=== PATIENT | female | born 1995 | race Caucasian/White ===

== ENCOUNTER 2019-06-15 09:28 | Outpatient (CLI) | payer MEDICAID ==
--- NOTE | 2019-06-16 03:44 | Ultrasound Report ---
Reason: TEST POSITIVE Procedure Date: 06/15/2019 Accession Number: [id number] / [id number] Procedure: US - OB First Trimester CPT Code: Final Report FULL RESULT: EXAM: FIRST TRIMESTER OBSTETRIC ULTRASOUND EXAM DATE: 06/15/2019 09:36 AM. CLINICAL HISTORY: TEST POSITIVE. LMP: 03/26/2019. COMPARISONS: None. TECHNIQUE: Transabdominal and transvaginal ultrasound examination with static image documentation. CLINICAL DATES: EGA 11 weeks 4 days with MACIE 12/31/2019 based on LMP. ASSESSMENT: Gestational Sac: Single intrauterine. Mean gestational sac diameter: 54 mm = 11 weeks 2 days. Embryo: CRL (crown-rump length) 50 mm = 11 weeks 5 days. Cardiac activity: 162 beats per minute. Yolk sac: Not seen. Amniotic fluid: Not accurately assessed at this gestational age. Early placenta: The bulk of the placenta is anterior fundal. Possible succenturiate lobe covering the internal os. Other: No perigestational fluid collection demonstrated. MATERNAL STRUCTURES: Uterus: Anteverted. Unremarkable. Cervix: Closed. Trace fluid in the endocervical canal. Right Ovary/Adnexa: The ovary measures 3.0 x 1.9 x 2.2 cm, volume 6.8 cc. Involuting cyst measuring 1.4 x 1.3 x 1.3 cm. Left Ovary/Adnexa: The ovary measures 2.6 x 1.8 x 3.2 cm, volume 7.9 cc. Corpus luteum cyst measuring 1.5 x 1.0 x 1.2 cm. Free Fluid: None. Other: None. IMPRESSION: 1. Single viable intrauterine at EGA 11 weeks 5 days with MCAIE 12/30/2019 based on crown-rump length, which is concordant with clinical dates. 2. Assigned dating is MACIE 12/31/2019 based on LMP. 3. The placenta is mostly anterior fundal. Possible succenturiate lobe covering the internal os. Recommend attention on later exams. RADIA
== END 2019-06-15 09:29 | disposition home or self-care (01) ==
LOC: DI 09:28
PROVIDERS: ATTEND Obstetrics & Gynecology
DX: Z32.01 Encounter for pregnancy test, result positive (principal)
CPT/HCPCS: 36415; 76801; 81599; 85025; 86762; 86803; 86850; 86900; 86901; 87340; 87389

== ENCOUNTER 2019-06-15 10:33 | Outpatient (CLI) | payer MEDICAID ==
[2019-06-15 10:59] LABS: BASOPHILS % (AUTO) 0.5 %; EOSINOPHILS # (AUTO) 0.1 10^3/uL (0.0-0.7); EOSINOPHILS % (AUTO) 1.2 %; HGB - HEMOGLOBIN 12.9 g/dL (12.0-16.0); LYMPHOCYTES # (AUTO) 2.4 10^3/uL (1.5-3.5); LYMPHOCYTES % (AUTO) 28.6 %; MEAN CORPUSCULAR HEMOGLOBIN 27.6 pg (27.0-31.0); MEAN CORPUSCULAR HGB CONC 33.4 g/dL (32.0-36.0); MEAN CORPUSCULAR VOLUME 82.5 fL (81.0-99.0); MONOCYTES # (AUTO) 0.9 10^3/uL (0.0-1.0); MONOCYTES % (AUTO) 10.2 %; NEUTROPHILS # (AUTO) 5.1 10^3/uL (1.5-6.6); NEUTROPHILS % (AUTO) 59.1 %; PLT - PLATELET COUNT 234 10^3/uL (130-450); RED BLOOD COUNT 4.68 10^6/uL (4.20-5.40); RED CELL DISTRIBUTION WIDTH 13.1 % (12.0-15.0); WHITE BLOOD COUNT 8.5 x10^3/uL (4.8-10.8)
[2019-06-16 10:55] LABS: HIV AG/AB 4TH GEN NON-REACTIVE (NON-REACTIVE)
[2019-06-16 13:30] LABS: HEPATITIS B SURFACE ANTIGEN NON-REACTIVE (NON-REACTIVE); HEPATITIS C ANTIBODY NON-REACTIVE (NON-REACTIVE)
== END 2019-06-15 10:34 | disposition home or self-care (01) ==
LOC: LAB 10:33
PROVIDERS: ATTEND Obstetrics & Gynecology
DX: Z32.01 Encounter for pregnancy test, result positive (principal)
CPT/HCPCS: 36415; 81599; 85025; 86762; 86803; 86850; 86900; 86901; 87340; 87389

== ENCOUNTER 2019-07-11 17:22 | Emergency (ER) | payer MEDICAID ==
[2019-07-11 17:32] VITALS: BP 127/84
[2019-07-11 18:22] LABS: BASOPHILS % (AUTO) 0.4 %; EOSINOPHILS # (AUTO) 0.1 10^3/uL (0.0-0.7); EOSINOPHILS % (AUTO) 1.2 %; LYMPHOCYTES # (AUTO) 2.3 10^3/uL (1.5-3.5); MEAN CORPUSCULAR HEMOGLOBIN 28.9 pg (27.0-31.0); MEAN CORPUSCULAR HGB CONC 35.2 g/dL (32.0-36.0); MEAN CORPUSCULAR VOLUME 82.2 fL (81.0-99.0); MONOCYTES # (AUTO) 0.8 10^3/uL (0.0-1.0); MONOCYTES % (AUTO) 8.1 %; NEUTROPHILS # (AUTO) 6.7 10^3/uL (1.5-6.6); NEUTROPHILS % (AUTO) 66.9 %; PLT - PLATELET COUNT 233 10^3/uL (130-450); RED BLOOD COUNT 4.15 10^6/uL (4.20-5.40); RED CELL DISTRIBUTION WIDTH 13.1 % (12.0-15.0); WHITE BLOOD COUNT 10.1 x10^3/uL (4.8-10.8)
[2019-07-11] MEDS ORDERED: KETOROLAC 30 MG/ML VIAL IVP STA (18:27)
[2019-07-11] MEDS ORDERED: KETOROLAC 30 MG/ML VIAL IM STA (18:31)
[2019-07-11 18:36] LABS: ALBUMIN 3.4 g/dL (3.2-5.5); ALBUMIN/GLOBULIN RATIO 0.9 (1.0-2.2); BILIRUBIN,TOTAL 0.5 mg/dL (0.2-1.0); CREATININE 0.6 mg/dL (0.4-1.0); TOTAL PROTEIN 7.1 g/dL (6.7-8.2)
[2019-07-11 18:46] LABS: BILIRUBIN,URINE NEGATIVE (NEGATIVE); GLUCOSE, URINE (UA) NEGATIVE (NEGATIVE); KETONES,URINE (UA) NEGATIVE (NEGATIVE); LEUKOCYTE ESTERASE, URINE NEGATIVE (NEGATIVE); NITRITE,URINE NEGATIVE (NEGATIVE); OCCULT BLOOD,URINE NEGATIVE (NEGATIVE); PH,URINE 5.5 PH (5.0-7.5); PROTEIN,URINE NEGATIVE (NEGATIVE); UROBILINOGEN,URINE 0.2 (NORMAL) E.U./dL (NORMAL)
[2019-07-11 18:47] LABS: CLARITY,URINE CLEAR (CLEAR)
--- NOTE | 2019-07-11 18:47 | ED Physician Documentation ---
<Omar Pino - Last Filed: 07/11/19 21:45> PD HPI FEMALE - Stated complaint Stated Complaint: RLQ ABD PX - Chief complaint Chief Complaint: Abd Pain PD PAST MEDICAL HISTORY - Allergies Allergies/Adverse Reactions: Allergies Allergy/AdvReac Type Severity Reaction Status Date / Time phenol [From Chloraseptic] Allergy Unknown Verified 07/11/19 17:32 PD MEDICAL DECISION MAKING - ED course Complexity details: re-evaluated patient, d/w patient, other (Patient signed out to me at shift change by Dr. Waed. Patient reexamined she is pain-free her ultrasound is reassuring. 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 Discharge Date/Time: 07/11/19 21:50 <Igor Wade - Last Filed: 07/12/19 00:25> PD HPI FEMALE - History obtained from History obtained from: Patient - History of Present Illness Timing - onset: Today Timing - duration: Hours Timing - details: Gradual onset, Still present (worsened this afternoon.), Waxing and waning Associated symptoms: Pelvic pain, Urinary frequency. 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 denies: Vomiting, Diarrhea : reports: Frequency, Now EGA (with feeling less movement today). denies: Dysuria, Discharge, Vaginal bleeding PD PAST MEDICAL HISTORY - Past Medical History Cardiovascular: None Respiratory: None Neuro: None Endocrine/Autoimmune: None PD ED PE NORMAL - Vitals Vital signs reviewed: Yes - General General: Alert and oriented X 3, No acute distress, Well developed/nourished - Neck Neck: Supple, no meningeal sign, No adenopathy - Cardiac Cardiac: RRR, No murmur - Respiratory Respiratory: Clear bilaterally - Abdomen Abdomen: Normal bowel sounds, Soft, Non distended, No organomegaly, Other (some tenderness left lower pelvic area. Not at McBurneys area directly. No percussion nor rebound tenderness. ) - Female Female : Deferred - Rectal Rectal: Deferred - Back Back: No CVA TTP - Derm Derm: Normal color, Warm and dry Results - Vitals Vitals: Vital Signs - 24 hr 07/11/19 17:27 Temperature 36.6 C Heart Rate 82 Respiratory 18 Rate Blood Pressure 127/84 H O2 Saturation 97 Oxygen O2 Source Room air - Labs Labs: Laboratory Tests 07/11/19 07/11/19 07/11/19 17:30 18:11 18:11 WBC 10.1 RBC 4.15 L Hgb 12.0 Hct 34.1 L MCV 82.2 MCH 28.9 MCHC 35.2 RDW 13.1 Plt Count 233 MPV 9.0 Neut # (Auto) 6.7 H Lymph # (Auto) 2.3 [place] # (Auto) 0.8 Eos # (Auto) 0.1 Baso # (Auto) 0.0 Absolute Nucleated RBC 0.00 Nucleated RBC % 0.0 Sodium 136 Potassium 3.5 Chloride 104 Carbon Dioxide 24 Anion Gap 8.0 BUN 8 Creatinine 0.6 Estimated GFR (MDRD) 126 Glucose 95 Calcium 9.0 Total Bilirubin 0.5 AST 15 ALT 20 Alkaline Phosphatase 49 Total Protein 7.1 Albumin 3.4 Globulin 3.7 Albumin/Globulin Ratio 0.9 L Lipase 30 Urine Color YELLOW Urine Clarity CLEAR Urine pH 5.5 Ur Specific [place] 1.025 Urine Protein NEGATIVE Urine Glucose (UA) NEGATIVE Urine Ketones NEGATIVE Urine Occult Blood NEGATIVE Urine Nitrite NEGATIVE Urine Bilirubin NEGATIVE Urine Urobilinogen 0.2 (NORMAL) Ur Leukocyte Esterase NEGATIVE Ur Microscopic Review NOT INDICATED Urine Culture Comments NOT INDICATED - Rads (name of study) OB U/S Radiology: Prelim report reviewed (little IUP with good heart beat and amniotic fluid. Normal ovaries size and flow. No intraperitoneal free fluid.), See rad report PD MEDICAL DECISION MAKING - ED course Complexity details: considered differential (she is not tender at McBurneys point nor higher. Seems tender lower pelvic area. Gravid with fundus about 15 cm above pubis c/w dates. FHT found by ER nurse by Doppler. Can get U/S to evaluate for ovarian/pelvic abnormality to account for pain. Most likely is round ligament pain, but need toe mary ellen for cysts, free fluid, torsion, etc. ) ED course: U/S and its report pending at time of shift change.
--- NOTE | 2019-07-11 21:26 | Ultrasound Report ---
Reason: RLQ abd pain; ; eval ovaries/fetus Procedure Date: 07/11/2019 Accession Number: [id number] / [id number] Procedure: US - OB 14+ Weeks CPT Code: Final Report FULL RESULT: EXAM: LIMITED OBSTETRICAL ULTRASOUND EXAM DATE: 07/11/2019 08:18 PM. CLINICAL HISTORY: RLQ abd pain; ; eval ovaries/fetus. COMPARISON: None. TECHNIQUE: Real-time sonographic evaluation of the fetus performed by the insurance representative. Multiple sales support representative static images were saved for review. DATING: Established EGA 15 weeks 2 days with MACIE 12/31/2019. GENERAL EVALUATION Sauer . Cardiac activity: 163 bpm. movement: Visualized. Presentation: Variable Placenta: Anterior fundal position. Amniotic fluid: Normal. CARA 11.1 cm. MVP 3.8 cm. MATERNAL STRUCTURES The right ovary measures 1.9 x 1.7 x 1.8 cm. The left ovary measures 1.8 x 2.0 x 2.3 cm. Visualization of the ovaries limited by body habitus. No intraperitoneal free fluid visualized. IMPRESSION: 1. Sauer live intrauterine with gestational age 15 weeks 2 days based on established MACIE. 2. Normal amniotic fluid volume. Both ovaries are visualized and appear normal in size. RADIA
== END 2019-07-11 21:50 | disposition home or self-care (01) ==
LOC: ED 17:22
DX: O26.892 Other specified pregnancy related conditions, second trimester (principal); R10.31 Right lower quadrant pain; Z3A.15 15 weeks gestation of pregnancy
CPT/HCPCS: 36415; 76805; 80053; 81001; 81003; 83690; 85025; 87086; 96372; 99284

== ENCOUNTER 2019-08-07 10:24 | Outpatient (CLI) | payer MEDICAID ==
--- NOTE | 2019-08-07 16:49 | Ultrasound Report ---
Reason: Procedure Date: 08/07/2019 Accession Number: [id number] / [id number] Procedure: US - OB Detailed Eval CPT Code: Final Report FULL RESULT: PROCEDURE: OB Detailed Eval INDICATIONS: OUTSIDE/PRIOR DATING DATA: Last menstrual period (LMP): 03/26/2019. LMP-based estimated date of delivery (MACIE): 12/2619. First dating scan (date and location): 06/15/2019. Estimated date of delivery (MACIE) from first dating scan: 12/31/2019. TECHNIQUE: Real-time scanning was performed of the fetus, with image documentation and biometric measurements. COMPARISON: 07/11/2019, 06/15/2019. FINDINGS: General: Indication limited by maternal body habitus. A single living intrauterine gestation is present. Presentation: Breech Placenta: Placental position is anterior, without previa. Amniotic fluid index: Not obtained. Amniotic fluid index volume appears subjectively within normal limits. Largest pocket measured 3.5 cm. heart rate: 150 beats per minute. Maternal cervical canal: 3.6 cm long; normal length is 2.5 cm or more. biometrics: Biparietal diameter: 4.6 cm, 19 weeks 6 days Head circumference: 16.6 cm, 19 weeks 2 days Abdominal circumference: 14.1 cm, 19 weeks 4 days Femur length: 2.7 cm, 18 weeks 1 day Estimated gestational age from initial scan: 19 weeks 1 day Composite gestational age from present scan: 19 weeks 3 days Estimated weight and percentile: 267 g, 35th percentile Measurement variability in biometric dating: +/- 10 days from 12-20 weeks gestation, +/- 2 weeks from 20-30 weeks gestation, +/- 3 weeks at 30 weeks gestation or later. Anatomic survey: Neuro: Ventricles are normal at less than 10 mm. Cisterna magna is normal at 3-11 mm. Cerebellum is normal in size and morphology. Face: Nose and lips, facial profile are normal. Spine: Not well visualized secondary to positioning and body habitus. Heart: 4-chambered heart is present, with normal appearance of the left ventricular outflow tracts. Ventricular outflow tract not well visualized. Diaphragm: Diaphragm is intact. Stomach: Left-sided stomach is present. Kidneys: No hydronephrosis. Normal is less than 5 mm in 2nd trimester, less than 7 mm in 3rd trimester. Cord: 3 vessel cord has orthotopic insertion. Bladder: Normal in size. Extremities: All 4 extremities are visualized. IMPRESSION: 1. Single living intrauterine demonstrating appropriate interval growth with estimated weight at the 35th percentile. 2. anatomic survey limited by maternal body habitus and position. spine and right ventricular outflow tract not well seen. Recommend a repeat study in 2-4 weeks for further evaluation. 3. Amniotic fluid index not obtained. amniotic fluid volume appears subjectively within normal limits. Further assessment is recommended at follow-up. Reviewed by: Felix Hoover MD on 08/07/2019 4:48 PM PDT Approved by: Felix Hoover MD on 08/07/2019 4:48 PM PDT Station ID: [id number]
== END 2019-08-07 10:25 | disposition home or self-care (01) ==
LOC: DI 10:24
PROVIDERS: ATTEND Advanced Practice Midwife
DX: Z34.02 Encounter for supervision of normal first pregnancy, second trimester (principal); Z36.8A Encounter for antenatal screening for other genetic defects
CPT/HCPCS: 36415; 76811; 81599

== ENCOUNTER 2019-08-07 12:58 | Outpatient (CLI) | payer MEDICAID | END 2019-08-07 12:59 | disposition home or self-care (01) | LOC: LAB 12:58 | PROVIDERS: ATTEND Advanced Practice Midwife | DX: Z34.00 Encounter for supervision of normal first pregnancy, unspecified trimester (principal); Z36.8A Encounter for antenatal screening for other genetic defects | CPT/HCPCS: 36415; 81599 ==

== ENCOUNTER 2019-08-27 12:45 | Outpatient (CLI) | payer MEDICAID ==
[2019-08-27] MEDS ORDERED: oxyCODONE 5 MG TABLET PO PRN (13:26)
[2019-08-27 13:28] LABS: BASOPHILS % (AUTO) 0.3 %; EOSINOPHILS # (AUTO) 0.1 10^3/uL (0.0-0.7); EOSINOPHILS % (AUTO) 1.3 %; HGB - HEMOGLOBIN 11.1 g/dL (12.0-16.0); LYMPHOCYTES % (AUTO) 18.9 %; MEAN CORPUSCULAR HEMOGLOBIN 28.6 pg (27.0-31.0); MEAN CORPUSCULAR HGB CONC 33.9 g/dL (32.0-36.0); MEAN CORPUSCULAR VOLUME 84.3 fL (81.0-99.0); MEAN PLATELET VOLUME 9.2 fL (7.9-10.8); MONOCYTES # (AUTO) 0.8 10^3/uL (0.0-1.0); MONOCYTES % (AUTO) 8.1 %; NEUTROPHILS # (AUTO) 7.3 10^3/uL (1.5-6.6); NEUTROPHILS % (AUTO) 70.8 %; PLT - PLATELET COUNT 266 10^3/uL (130-450); RED BLOOD COUNT 3.88 10^6/uL (4.20-5.40); RED CELL DISTRIBUTION WIDTH 13.1 % (12.0-15.0); WHITE BLOOD COUNT 10.3 x10^3/uL (4.8-10.8)
[2019-08-27] MEDS ORDERED: METOCLOPRAMIDE 10 MG TABLET PO SCH (13:35)
[2019-08-27 13:41] LABS: ALBUMIN 3.1 g/dL (3.2-5.5); ALBUMIN/GLOBULIN RATIO 0.8 (1.0-2.2); BILIRUBIN,TOTAL 0.4 mg/dL (0.2-1.0); CALCIUM 9.3 mg/dL (8.5-10.3); CREATININE 0.5 mg/dL (0.4-1.0); TOTAL PROTEIN 7.2 g/dL (6.7-8.2)
[2019-08-27 14:53] LABS: BILIRUBIN,URINE NEGATIVE (NEGATIVE); GLUCOSE, URINE (UA) NEGATIVE (NEGATIVE); KETONES,URINE (UA) NEGATIVE (NEGATIVE); LEUKOCYTE ESTERASE, URINE NEGATIVE (NEGATIVE); NITRITE,URINE NEGATIVE (NEGATIVE); OCCULT BLOOD,URINE NEGATIVE (NEGATIVE); PROTEIN,URINE NEGATIVE (NEGATIVE); UROBILINOGEN,URINE 0.2 (NORMAL) E.U./dL (NORMAL)
[2019-08-27 14:54] LABS: CLARITY,URINE CLEAR (CLEAR)
[2019-08-27 15:11] LABS: CREATININE,URINE 71.9 mg/dL; PROTEIN/CREATININE RATIO,URINE 0.1 (<=0.2)
[2019-08-27 15:13] VITALS: BP 106/62
[2019-08-28 15:45] LABS: TOTAL PROTEIN,URINE TIMED 10 mg/dL
[2019-08-28 16:38] LABS: TOTAL PROTEIN 24HR,URINE 85 mg/24hr (40-150); TOTAL VOLUME 24HRS,URINE 850 mL
--- NOTE | 2019-08-29 16:04 | PROVIDER PROGRESS NOTE ---
- HPI Chief Complaint: Other (Patient is a 24 yo at 22+0 wga followed by MARCO Mcdonough CNM who presented for PIH evaluation. Has been checking BPs at home, BP 157/82 Severe NEVAREZ; did not improve with tylenol taken this am. Has migraines regularly. No RUQ pain/vision change. Endorses N/V. + FM) Current : Current EDU 12/31/19 Gestation 22 Weeks and 0 Days 1 Para 0 Vital Signs Temperature 99.0 F 08/27/19 12:59 Heart Rate 92 08/27/19 12:59 Respiratory Rate 22 08/27/19 12:59 Blood Pressure 145/82 H 08/27/19 12:59 O2 Saturation 99 08/27/19 12:59 Temperature 99.0 F 08/27/19 12:59 Heart Rate 90 08/27/19 15:00 Respiratory Rate 22 08/27/19 12:59 Blood Pressure 106/62 08/27/19 15:00 O2 Saturation 99 08/27/19 12:59 - Exam GEN: NAD RESP: Normal effort CV: RRR ABD: S&NT/ND, gravid, No RUQ tenderness NEURO: A&O PSYCH: appropriate affect P:C 0.1 PIH labs wnl - Procedures NST Procedure: Dopplers show heart rate to be 150s Service Date of procedure: 08/27/19 - Plan Plan: 24 yo at 22+0 wga here with NEVAREZ and mild elevation in BPs BPs mainly in normal range with a few in 140s/90s NEVAREZ improved with reglan and oxycodone PIH labs wnl Patient has migraines at baseline NEVAREZ resolved with medication and nop other symptoms persisted BP normalized once NEVAREZ resolved Review of [facility] records indicate baseline chronic hypertension with BPs in 140s on 06/26/2019 -Started on ASA at 17 weeks Discharged to home with warning signs and rx for reglan FU in clinic
== END 2019-08-27 15:44 | disposition home or self-care (01) ==
LOC: WFO 12:45 → FBP 12:50 → WFO 15:44
PROVIDERS: ATTEND Advanced Practice Midwife
DX: O10.912 Unspecified pre-existing hypertension complicating pregnancy, second trimester (principal); R51 Headache; Z3A.22 22 weeks gestation of pregnancy; O99.352 Diseases of the nervous system complicating pregnancy, second trimester; G43.909 Migraine, unspecified, not intractable, without status migrainosus
CPT/HCPCS: 36415; 80053; 81003; 82570; 84156; 84550; 85025; 99214; A9270

== ENCOUNTER 2019-08-28 09:23 | Outpatient (CLI) | payer MEDICAID ==
[2019-08-28 15:50] LABS: MUDS CUTOFF CONCENTRATIONS CUTOFF CONC BELOW:
[2019-08-28 15:59] LABS: BILIRUBIN,URINE NEGATIVE (NEGATIVE); GLUCOSE, URINE (UA) NEGATIVE (NEGATIVE); KETONES,URINE (UA) NEGATIVE (NEGATIVE); LEUKOCYTE ESTERASE, URINE NEGATIVE (NEGATIVE); NITRITE,URINE NEGATIVE (NEGATIVE); OCCULT BLOOD,URINE NEGATIVE (NEGATIVE); PROTEIN,URINE NEGATIVE (NEGATIVE); UROBILINOGEN,URINE 0.2 (NORMAL) E.U./dL (NORMAL)
[2019-08-28 16:04] LABS: CLARITY,URINE HAZY (CLEAR)
[2019-08-28 16:10] LABS: BACTERIA,URINE Many /HPF (None Seen); RBC,URINE None Seen /HPF (0-5); SQUAMOUS EPITHELIAL CELL,UR MANY Squamous (<= Few)
[2019-08-28 16:15] LABS: AMPHETAMINE SCREEN,URINE NEGATIVE (NEGATIVE); BENZODIAZEPINES SCREEN, URINE NEGATIVE (NEGATIVE); COCAINE SCREEN URINE NEGATIVE (NEGATIVE); METHADONE SCREEN, URINE NEGATIVE (NEGATIVE); METHAMPHETAMINES SCREEN, URINE NEGATIVE (NEGATIVE); OPIATE SCREEN, URINE NEGATIVE (NEGATIVE); OXYCODONE SCREEN, URINE NEGATIVE (NEGATIVE); PROPOXYPHENE SCREEN, URINE NEGATIVE (NEGATIVE); TRICYCLIC ANTIDEPRESSANT,URINE NEGATIVE (NEGATIVE)
[2019-08-28 21:52] LABS: TRICHOMONAS VAGINALIS DNA NEGATIVE (NEGATIVE)
== END 2019-08-28 23:59 | disposition home or self-care (01) ==
LOC: LAB.R 09:23
PROVIDERS: ATTEND Advanced Practice Midwife
DX: Z34.00 Encounter for supervision of normal first pregnancy, unspecified trimester (principal)
CPT/HCPCS: 80306; 81001; 87086; 87491; 87591; 87661

== ENCOUNTER 2019-08-31 13:46 | Outpatient (CLI) | payer MEDICAID ==
--- NOTE | 2019-08-31 15:52 | Ultrasound Report ---
PROCEDURE: OB F/U or Repeat INDICATIONS: SUPERVISION OF NORMAL OUTSIDE/PRIOR DATING DATA: Last menstrual period (LMP): 03/26/2019. LMP-based estimated date of delivery (MACIE): 12/31/2019. First dating scan (date and location): 06/15/2019. Estimated date of delivery (MACIE) from first dating scan: 12/31/2019. TECHNIQUE: Real-time scanning was performed of the fetus, with image documentation and biometric measurements. COMPARISON: OB ultrasound 08/07/2019 FINDINGS: General: A single living intrauterine gestation is present. Presentation: Breech Placenta: Placental position is anterior, without previa. Amniotic fluid index: 12.8 cm, 27th percentile for gestational age. Largest pocket 3.9 cm heart rate: 139 beats per minute. Maternal cervical canal: 4.6 cm long; normal length is 2.5 cm or more. Other: outflow tracts are within normal limits. Spine is within normal limits. IMPRESSION: 1. Single live intrauterine . 2. Outflow tracts and spine are within normal limits. Reviewed by: Tierra Campoverde MD on 08/31/2019 3:51 PM PDT Approved by: Tierra Campoverde MD on 08/31/2019 3:51 PM PDT Station ID: [id number]
== END 2019-08-31 13:47 | disposition home or self-care (01) ==
LOC: DI 13:46
PROVIDERS: ATTEND Advanced Practice Midwife
DX: Z34.00 Encounter for supervision of normal first pregnancy, unspecified trimester (principal)
CPT/HCPCS: 76816

== ENCOUNTER 2019-09-19 08:00 | Outpatient (CLI) | payer MEDICAID ==
[2019-09-19 20:46] LABS: CANDIDA GROUP DNA NEGATIVE (NEGATIVE); CANDIDA KRUSEI DNA NEGATIVE (NEGATIVE); TRICHOMONAS VAGINALIS DNA NEGATIVE (NEGATIVE)
[2019-09-19 21:23] LABS: TRICHOMONAS VAGINALIS DNA NEGATIVE (NEGATIVE)
== END 2019-09-19 23:59 | disposition home or self-care (01) ==
LOC: LAB.R 08:00
PROVIDERS: ATTEND Radiology Diagnostic Radiology
DX: N89.8 Other specified noninflammatory disorders of vagina (principal); Z11.3 Encounter for screening for infections with a predominantly sexual mode of transmission
CPT/HCPCS: 87086; 87491; 87591; 87661; 87801

== ENCOUNTER 2019-09-25 07:00 | Outpatient (CLI) | payer MEDICAID ==
[2019-09-25 16:14] LABS: BILIRUBIN,URINE NEGATIVE (NEGATIVE); GLUCOSE, URINE (UA) NEGATIVE (NEGATIVE); KETONES,URINE (UA) NEGATIVE (NEGATIVE); LEUKOCYTE ESTERASE, URINE NEGATIVE (NEGATIVE); NITRITE,URINE NEGATIVE (NEGATIVE); OCCULT BLOOD,URINE NEGATIVE (NEGATIVE); PH,URINE 7.5 PH (5.0-7.5); PROTEIN,URINE NEGATIVE (NEGATIVE); UROBILINOGEN,URINE 1 (NORMAL) E.U./dL (NORMAL)
[2019-09-25 16:17] LABS: CLARITY,URINE CLEAR (CLEAR)
== END 2019-09-25 23:59 | disposition home or self-care (01) ==
LOC: LAB.R 07:00
PROVIDERS: ATTEND Advanced Practice Midwife
DX: Z34.00 Encounter for supervision of normal first pregnancy, unspecified trimester (principal); Z36.89 Encounter for other specified antenatal screening
CPT/HCPCS: 81001; 81003; 87086

== ENCOUNTER 2019-09-26 08:30 | Outpatient (CLI) | payer MEDICAID ==
[2019-09-26 09:12] LABS: BILIRUBIN,URINE NEGATIVE (NEGATIVE); GLUCOSE, URINE (UA) NEGATIVE (NEGATIVE); KETONES,URINE (UA) NEGATIVE (NEGATIVE); LEUKOCYTE ESTERASE, URINE NEGATIVE (NEGATIVE); NITRITE,URINE NEGATIVE (NEGATIVE); OCCULT BLOOD,URINE NEGATIVE (NEGATIVE); PH,URINE 7.5 PH (5.0-7.5); PROTEIN,URINE NEGATIVE (NEGATIVE); UROBILINOGEN,URINE 1 (NORMAL) E.U./dL (NORMAL)
[2019-09-26 09:29] LABS: BACTERIA,URINE Few /HPF (None Seen); CLARITY,URINE HAZY (CLEAR); RBC,URINE None Seen /HPF (0-5); SQUAMOUS EPITHELIAL CELL,UR RARE Squamous (<= Few)
[2019-09-26 10:01] LABS: MEAN CORPUSCULAR HEMOGLOBIN 29.3 pg (27.0-31.0); MEAN CORPUSCULAR HGB CONC 34.1 g/dL (32.0-36.0); MEAN CORPUSCULAR VOLUME 85.9 fL (81.0-99.0); MEAN PLATELET VOLUME 9.2 fL (7.9-10.8); RED BLOOD COUNT 3.76 10^6/uL (4.20-5.40)
== END 2019-09-26 08:31 | disposition home or self-care (01) ==
LOC: LAB 08:30
PROVIDERS: ATTEND Advanced Practice Midwife
DX: Z34.00 Encounter for supervision of normal first pregnancy, unspecified trimester (principal); Z36.89 Encounter for other specified antenatal screening; N89.8 Other specified noninflammatory disorders of vagina
CPT/HCPCS: 36415; 81001; 82950; 85027; 87086

== ENCOUNTER 2019-11-06 07:50 | Outpatient (CLI) | payer MEDICAID ==
[2019-11-06 08:10] VITALS: BP 125/78
--- NOTE | 2019-11-06 09:20 | PROCEDURE REPORT ---
- HPI Diagnosis/Indication for NST: Gestational Diabetes Current EDU 12/31/19 Gestation 32 Weeks and 1 Days 1 Para 0 Vital Signs Temperature 97.2 F L 11/06/19 08:05 Heart Rate 95 11/06/19 08:05 Respiratory Rate 18 11/06/19 08:05 Blood Pressure 125/78 11/06/19 08:05 O2 Saturation 99 11/06/19 08:05 Temperature 97.2 F L 11/06/19 08:05 Heart Rate 95 11/06/19 08:05 Respiratory Rate 18 11/06/19 08:05 Blood Pressure 125/78 11/06/19 08:05 O2 Saturation 99 11/06/19 08:05 - NST Procedure NST Procedure Start Date 11/06/19 Start Time 08:03 Stop Time 08:24 Vibroacoustic Stimulation Used No Patient States Movement No - Results and Plan Findings/Impression: Category 1 NST [place] neg Continue routine surveillance
== END 2019-11-06 08:30 | disposition home or self-care (01) ==
LOC: WFO 07:50 → FBP 07:52 → WFO 08:30
PROVIDERS: ATTEND Obstetrics & Gynecology
DX: O24.419 Gestational diabetes mellitus in pregnancy, unspecified control (principal); Z3A.32 32 weeks gestation of pregnancy
CPT/HCPCS: 59025

== ENCOUNTER 2019-11-09 08:37 | Outpatient (CLI) | payer MEDICAID ==
[2019-11-09 08:58] VITALS: BP 137/74
--- NOTE | 2019-11-10 15:39 | PROCEDURE REPORT ---
- HPI Diagnosis/Indication for NST: Gestational Diabetes Current EDU 12/31/19 Gestation 32 Weeks and 4 Days 1 Para 0 Vital Signs Temperature 97.7 F 11/09/19 08:50 Heart Rate 18 L 11/09/19 08:50 Respiratory Rate 11/09/19 08:50 Blood Pressure 137/74 H 11/09/19 08:50 O2 Saturation 99 11/09/19 08:50 Temperature 97.7 F 11/09/19 08:50 Heart Rate 18 L 11/09/19 08:50 Respiratory Rate 11/09/19 08:50 Blood Pressure 137/74 H 11/09/19 08:50 O2 Saturation 99 11/09/19 08:50 - NST Procedure NST Procedure Start Date 11/09/19 Start Time 08:47 Stop Time 09:07 Vibroacoustic Stimulation Used No Patient States Movement Yes - Results and Plan Findings/Impression: Category 1 NST [place] neg Continue surveillance as planned.
== END 2019-11-09 09:10 | disposition home or self-care (01) ==
LOC: WFO 08:37 → FBP 08:40 → WFO 09:10
PROVIDERS: ATTEND Obstetrics & Gynecology
DX: O24.419 Gestational diabetes mellitus in pregnancy, unspecified control (principal); Z3A.32 32 weeks gestation of pregnancy
CPT/HCPCS: 59025

== ENCOUNTER 2019-11-10 15:29 | Observation (INO) | payer MEDICAID ==
[2019-11-10 16:21] LABS: BILIRUBIN,URINE NEGATIVE (NEGATIVE); GLUCOSE, URINE (UA) NEGATIVE (NEGATIVE); KETONES,URINE (UA) NEGATIVE (NEGATIVE); LEUKOCYTE ESTERASE, URINE NEGATIVE (NEGATIVE); NITRITE,URINE NEGATIVE (NEGATIVE); OCCULT BLOOD,URINE NEGATIVE (NEGATIVE); PH,URINE 6.5 PH (5.0-7.5); PROTEIN,URINE NEGATIVE (NEGATIVE); UROBILINOGEN,URINE 0.2 (NORMAL) E.U./dL (NORMAL)
[2019-11-10 16:26] LABS: AMORPHOUS SEDIMENT,UR Few /LPF; BACTERIA,URINE Moderate /HPF (None Seen); CLARITY,URINE HAZY (CLEAR); RBC,URINE None Seen /HPF (0-5); SQUAMOUS EPITHELIAL CELL,UR MANY Squamous (<= Few)
--- NOTE | 2019-11-10 16:40 | PROCEDURE REPORT ---
- HPI Diagnosis/Indication for NST: Other (r/o labor) Current EDU 12/31/19 Gestation 32 Weeks and 5 Days 1 Para 0 Vital Signs Temperature 98.2 F 11/10/19 15:49 Heart Rate 97 11/10/19 15:49 Respiratory Rate 11/10/19 15:49 Blood Pressure 153/87 H 11/10/19 15:49 O2 Saturation 100 11/10/19 15:49 Temperature 98.2 F 11/10/19 16:08 Heart Rate 97 11/10/19 16:08 Respiratory Rate 11/10/19 16:08 Blood Pressure 136/78 H 11/10/19 15:58 O2 Saturation 100 11/10/19 16:08 - NST Procedure NST Procedure Start Time 08:47 Stop Time 09:07 - Results and Plan Findings/Impression: S: low back cramping started at noon, mild. No injury or twisting, no hx of low back pain. On top of the cramping is having flares of cramping that last for 30-60sec, were happening every 10min at home. Usually having just a handful of shawn reed every few days. No VB, no LOF. Decreased movement earlier today, now in triage is normal with 12 moves in the past 40min. No dysuria, hematuria, vag discahrge, vag itching, or vag odor. O: Alert, NAD. EFG normal, vagina pink with physiologic discharge. SVE closed/50/-2, soft, posterior. FFN: neg UA: contaminated Wet mount: neg GC/CT collected CL 1.5 with mild funneling A/P: 24yo P0 at 32w with threatened labor. Please see admit note. Due to shortened CL and UC will give steroids and tocolyze until they are on board. Admit, obs,transport PRN SVE change. --Chronic hypertension: reports BP at home in normal to low mild range. Requested pt take her BP daily. P:C normal --Gestational diabetes: fastings <100. Postprandials <140 except for after eating cereal. Discussed dietary recommendations and the benefits of tighter glycemic control in reducing risk of , injury, hemorrhage, etc.
[2019-11-10 17:10] LABS: PROTEIN/CREATININE RATIO,URINE 0.1 (<=0.2)
--- NOTE | 2019-11-10 18:08 | Ultrasound Report ---
PROCEDURE: OB Limited INDICATIONS: Decreased movement need MVP OUTSIDE/PRIOR DATING DATA: Last menstrual period (LMP): 03/26/2019. LMP-based estimated date of delivery (MACIE): 12/31/2019. First dating scan (date and location): 06/15/2019. Estimated date of delivery (MACIE) from first dating scan: 12/31/2019. TECHNIQUE: Real-time scanning was performed of the fetus, with image documentation. Endovaginal scanning: Performed for improved visualization. COMPARISON: 08/07/2019, 08/31/2019 FINDINGS: A single live intrauterine gestation is present. Presentation: Cephalic Placenta: Placental position is anterior, without previa. Amniotic fluid index: 9.7 cm, 10th percentile for gestational age. The largest pocket is 6 cm heart rate: 152 beats per minutes. Maternal cervical canal: The cervix is abnormal, with internal funneling. The closed portion of the c ervix measures 1.5 to 1.8 cm. Estimated gestational age from initial scan: 32 weeks 5 days. IMPRESSION: Single live intrauterine . The cervix is abnormally shortened, with funneling seen along the internal cervical os. The volume of amniotic fluid is near the lower limits of normal, with the largest pocket of fluid ronnie suring 6 cm. Note: Concordant preliminary findings given by the application integration engineer upon the completion of the examination to Dr. Poon at 5:46 PM on 11/10/2019 Reviewed by: Mark Varela MD on 11/10/2019 5:07 PM ROSA MARIA Approved by: Mark Varela MD on 11/10/2019 5:07 PM AKEDMAR Station ID: [id number]
--- NOTE | 2019-11-10 18:09 | Ultrasound Report ---
PROCEDURE: OB Transvaginal INDICATIONS: contractions need cervical length TECHNIQUE: Limited OB ultrasound for contractions. COMPARISON: All prior OB ultrasound studies for this .. FINDINGS: Limited study, related to contractions. Amniotic fluid index is 9.7 cm, the lower 10th percen tile for current gestational age. Vertex presentation, anterior placenta. heart rate 1 52 bpm. The maternal cervical length is foreshortened, fundal, and evidence of abruption or placenta previa i s not found. IMPRESSION: Single living intrauterine gestation, shortened cervical length with funneling. Amniotic fluid volume is currently normal, lower 10th percentile. Normal heart rate,. Reviewed by: Vic Barrow MD on 11/10/2019 6:08 PM PDT Approved by: Vic Barrow MD on 11/10/2019 6:08 PM PDT Station ID: [id number]
[2019-11-10] MEDS: NIFEdipine 10 MG CAPSULE PO SCH (18:48)
--- NOTE | 2019-11-10 19:05 | HISTORY & PHYSICAL EXAMINATION ---
Admit History - Visit Reason Visit Reason: Contractions - : 1 Parity: 0 Premature: 0 Ectopic: 0 : 0 Care: positive: [facility] Risk/History: positive: Gestational diabetes, Other (CHTN, Obesity) Complications This : positive: None Smoking Status: Former smoker - Mother's Labs Mother's Blood Type: positive: AB Mother's RH: positive: Positive GBS: positive: Other (GBS unknown r/t gestational age) Rubella Status: positive: Non-immune - Other Maternal History Other Maternal History: *Kathy is a 24yo at 32.5wks gestation who presents today with concerns of labor. Intermittent back cramping remains. *Denies LOF, VB, NEVAREZ, RUQ pain *Reports movement * care- with [facility] * Complications -Chronic Hypertension- no meds -GDM- metformin BID -Obesity- last BMI in clinic 46.06 *Dating Criteria -Initial U/S: 06/15/2019 11.4wks c/w LMP for MACIE of 12/31/2019 *OB History -G1: Current *Medications - vitamin- daily -Metformin 500mg BID -ASA 81mg daily -Ferrous Sulfate- 325mg daily -Metoclopramide- reports taking PRN, nausea, but not recently *Allergies -Chloraseptic Throat spray (throat swelling) *Medical History -Chronic Hyptertension -Obesity -Migraines *Surgical History -Carver Teeth extraction 2014 *Family History -Father - diabetes -Uncle - "weight disorder" *Other histories -Non contributory * Labs and Findings Initial U/S: 06/15/2019 11.4wks c/w LMP for MACIE of 12/31/2019. Placenta anterior fundal, with possible succenturiate lobe covering internal os, attention needed on later exams AB pos/Rubella *equiv* Gentic testing: QUAD- neg FAS: FAS: WNL. EFW 35%, CARA appears normal. spine and heart not fully seen, will need to redo in 2-4 weeks. F/U US: spine and outflow tracts WNL Glucola : 1hr 192; 3hr GTT: ABNORMAL 111/203/139/136. TDAP : given 10/29/2019 GBS & GC/CT at 36 weeks HSV: denies self and partner Breast pump Rx MOD: Anticipate . Desires no epidural. Jay. baby BOY: Leroy Gaston pp contraception: was using withdrawl with success for four years; undecided, more info needed ASA for CHTN Objective: SVE: closed/50%/-2/soft (unchanged from previous exam) Uterus: soft to palpation. UA- contaminated FFN- negative P:C- 0.1 Cervical length 1.2cm per provider report Assessment: 24yo at 32.5wks gestation with report of contractions FFN reassuring Corticosteroids for lung development indicated for short cervical length and contractions Plan: Admit to observation (until active labor or SROM) Continuous uterine monitoring NST TID Betamethasone x1 NOW, and repeat x1 in 24h Nifidipine for decrease in uterine activity (10mg po q6h) GDM- manage with AC and one hour post prandial observation (with expected increase with corticosteroid administration); continue with Metformin 500mg BID. Notify provider for out of range sugars. May ambulate to bathroom Diet- Carb Control Meds/Allgy - Home Medications Home Medications: Ambulatory Orders Medication Instructions Recorded Confirmed predniSONE [Deltasone] 40 mg PO DAILY 4 Days tablet 02/04/16 Metformin HCl 500 mg PO QPM 10/16/19 10/16/19 Metoclopramide [Reglan] 10 mg PO Q6H PRN 10/16/19 10/16/19 Ondansetron Odt [Zofran Odt] 4 mg PO Q6H PRN 10/16/19 10/16/19 Pnv No.95/Ferrous Fum/Folic AC 1 each PO 10/16/19 [ Vitamin Tablet] - Allergies Allergies/Adverse Reactions: Allergies Allergy/AdvReac Type Severity Reaction Status Date / Time phenol [From Chloraseptic] Allergy Unknown Verified 10/30/19 15:45 Review of Systems - All Other Systems All Other Systems: reports: Reviewed and negative Physical - Abdominal Exam Vital Signs: Temp Pulse Resp BP Pulse Ox 36.7 C 89 20 144/84 H 99 11/10/19 18:49 11/10/19 18:49 11/10/19 18:49 11/10/19 18:49 11/10/19 18:49 Plan for Labor - Plan For Labor I expect patient to be DC'd or transferred within 96 hours.: Yes
[2019-11-10] MEDS ORDERED: DOXYLAMINE 25 MG TABLET PO PRN (19:34)
[2019-11-10] MEDS ORDERED: FERROUS GLUCONATE 324 MG TABLET PO SCH (19:34)
[2019-11-10] MEDS ORDERED: SODIUM CHLORIDE 0.9% 1,000 ML IV SCH (20:00)
[2019-11-10] MEDS ORDERED: ASPIRIN 325 MG TABLET PO SCH (20:00)
[2019-11-10] MEDS: BETAMETHASONE 30 MG/5 ML VIAL IM SCH (20:04)
[2019-11-10] MEDS: metFORMIN 500 MG TABLET PO SCH (20:25)
[2019-11-10] MEDS ORDERED: ASPIRIN CHEW 81 MG TABLET PO SCH (20:31)
[2019-11-10] MEDS: SODIUM CHLORIDE FLUSH 0.9% 10 ML SYRINGE IVP PRN (20:51)
[2019-11-11] MEDS: NIFEdipine 10 MG CAPSULE PO SCH ×4 (01:35→21:25)
[2019-11-11] MEDS: metFORMIN 500 MG TABLET PO SCH ×2 (07:53→17:03)
[2019-11-11] MEDS: SODIUM CHLORIDE FLUSH 0.9% 10 ML SYRINGE IVP PRN ×2 (07:54→21:24)
[2019-11-11] MEDS ORDERED: metFORMIN 500 MG TABLET PO SCH (08:00)
[2019-11-11] MEDS ORDERED: ASPIRIN 325 MG TABLET PO SCH (08:00)
[2019-11-11] MEDS ORDERED: NIFEdipine 10 MG CAPSULE PO ONE (09:22)
--- NOTE | 2019-11-11 09:40 | PROVIDER PROGRESS NOTE ---
Subjective - Subjective Subjective: S: slept last night, today had her back cramping increase and now wrap around to the front. Pain flares on top of that are q10min. No VB, no LOF O: BP normal to mild range Alert, relaxed, NAD SVE unchanged since last admit--fingertip, 50%, soft, -2. TVUS: CL 1.6cm, mild funnel [place] not picking up well Category 1 NST CBG 150s A/P: 24yo P0 at 32w6d admitted for short cervix and contractions, FFN neg. Getting tocolysis while her steroid course is being given. Increased level of pain recently but no change in SVE or in cervical length. D/w MFM at [facility]. Will bump up nifedipine to 20mg po q6h. After the 2nd dose of betamethasone will switch the nifedipine to PRN and watch overnight. Transport to facility with NICU PRN cervical change. A2 GDM: sugars flaring with steroids. Add sliding scale insulin Chronic HTN: no severe range BP. Tolerating nifedipine well. VTE prophylaxis: ASA 81mg daily + ambulation Objective - Vital Signs/Intake & Output Vital Signs: Vital Signs x48h Temp Pulse Pulse Resp BP BP Pulse Ox 11/11/19 07:10 98.4 F 84 16 119/60 100 11/11/19 01:35 98.1 F 86 16 128/74 98 - Lab Results Other Labs: Lab Results x24hrs 11/11/19 11/11/19 11/10/19 Range/Units 09:26 06:57 19:35 POC Whole Bld Glucose 156 H 121 H 127 H (70 - 100) mg/dL Urine Color Urine Clarity (CLEAR) Urine pH (5.0-7.5) PH Ur Specific [place] (1.002-1.030) Urine Protein (NEGATIVE) mg/dL Urine Glucose (UA) (NEGATIVE) mg/dL Urine Ketones (NEGATIVE) mg/dL Urine Occult Blood (NEGATIVE) Urine Nitrite (NEGATIVE) Urine Bilirubin (NEGATIVE) Urine Urobilinogen (NORMAL) E.U./dL Ur Leukocyte Esterase (NEGATIVE) Urine RBC (0-5) /HPF Urine WBC (0-5) /HPF Ur Squamous Epith Cells (<= Few) Amorphous Sediment /LPF Urine Bacteria (None Seen) /HPF Urine Culture Comments Urine Creatinine mg/dL Ur Total Protein Timed mg/dL Protein/Creatinin Ratio (<=0.2) Fibronectin (NEGATIVE) 11/10/19 11/10/19 11/10/19 Range/Units 16:30 15:37 15:37 POC Whole Bld Glucose (70 - 100) mg/dL Urine Color YELLOW Urine Clarity HAZY (CLEAR) Urine pH 6.5 (5.0-7.5) PH Ur Specific [place] 1.020 (1.002-1.030) Urine Protein NEGATIVE (NEGATIVE) mg/dL Urine Glucose (UA) NEGATIVE (NEGATIVE) mg/dL Urine Ketones NEGATIVE (NEGATIVE) mg/dL Urine Occult Blood NEGATIVE (NEGATIVE) Urine Nitrite NEGATIVE (NEGATIVE) Urine Bilirubin NEGATIVE (NEGATIVE) Urine Urobilinogen 0.2 (NORMAL) (NORMAL) E.U./dL Ur Leukocyte Esterase NEGATIVE (NEGATIVE) Urine RBC None Seen (0-5) /HPF Urine WBC 0-3 (0-5) /HPF Ur Squamous Epith Cells MANY Squamous H (<= Few) Amorphous Sediment Few /LPF Urine Bacteria Moderate H (None Seen) /HPF Urine Culture Comments NOT INDICATED Urine Creatinine 71.0 mg/dL Ur Total Protein Timed 10 mg/dL Protein/Creatinin Ratio 0.1 (<=0.2) Fibronectin NEGATIVE (NEGATIVE)
[2019-11-11] MEDS ORDERED: INSULIN ASPART 300 UNIT/3 ML PEN SUBQ SCH (10:15)
[2019-11-11] MEDS: ACETAMINOPHEN 500 MG TABLET PO PRN ×2 (15:30→21:25)
[2019-11-11] MEDS ORDERED: ASPIRIN CHEW 81 MG TABLET PO SCH (17:00)
[2019-11-11] MEDS ORDERED: FERROUS GLUCONATE 324 MG TABLET PO SCH (17:00)
[2019-11-11] MEDS: BETAMETHASONE 30 MG/5 ML VIAL IM SCH (20:22)
[2019-11-12] MEDS: NIFEdipine 10 MG CAPSULE PO SCH ×2 (03:11→09:05)
[2019-11-12] MEDS: metFORMIN 500 MG TABLET PO SCH (08:04)
[2019-11-12 08:08] VITALS: BP 141/71
--- NOTE | 2019-11-12 09:57 | Discharge Plan ---
Discharge Plan Problem Reviewed?: Yes Disposition: Home, Self Care Condition: Good Diet: Diabetic Activity Restrictions: No intercourse for 2 week Shower Restrictions: No Driving Restrictions: No No Smoking: If you smoke, Please STOP! Call for help. Follow-up with: Omar Burroughs MD [Provider Admit Priv/Credential] - 1 Week
--- NOTE | 2019-11-12 11:21 | DISCHARGE SUMMARY ---
Physician: Gabby Poon MD DATE OF ADMISSION: 11/10/2019 DATE OF DISCHARGE: 11/12/2019 ADMISSION DIAGNOSES: 1. Intrauterine at 32 weeks and 5 days. Premature onset of contractions. 2. Short cervix with cervical following. 3. Gestational diabetes type A2. 4. Chronic hypertension. DISCHARGE DIAGNOSES: 1. Intrauterine at 32 weeks and 5 days. Premature onset of contractions. 2. Short cervix with cervical following. 3. Gestational diabetes type A2. 4. Chronic hypertension. PROCEDURES: Twice daily NSTs. HOSPITAL COURSE: The patient was admitted due to frequent contractions and on evaluation, she was found to have a cervical length of 1.5 cm with funneling, which is not normal. Her fibronectin was negative, but due to the frequency and the pain of her contractions as well as a short cervix with funneling, the decision was made to give her steroids. She received continuous tocolysis with nifedipine while getting her steroid course. She did have breakthrough contractions on 10 mg of nifedipine, so this was increased to 20 mg p.o. every 6 hours. The patient reports resolution of her contractions. She is not having any vaginal bleeding or leaking of water. She is having good movement. Her infection testing was normal. She did not have a UTI or vaginitis. Her gonorrhea and chlamydia testing is pending. Throughout her hospitalization, her NST is category 1 and her cervical exam was unchanged at fingertip dilated, 60% effaced, -2 station, posterior, and very soft. 1. Premature onset of contractions: No cervical change. The patient is not in labor. She received a course of steroids. She will be discharged home on nifedipine for p.r.n. use. 2. A2 gestational diabetes: The steroids did bump her fasting sugars by a bit, but her postprandials remained normal. The patient will have ongoing evaluation in clinic for this. If her fastings remain elevated for more than about 4 or 5 days, then she might need further medical intervention. She is not on insulin. She is just on metformin currently. She was advised to be more compliant with a diabetic diet. 3. Chronic hypertension: The patient had elevated blood pressures on admission consistent with her history of chronic hypertension. Her protein to creatinine ratio was normal. Throughout her hospitalization, her blood pressures remained in the mild the abnormal range, which is fine for with people with chronic hypertension. The nifedipine did not cause any significant drops in her blood pressures. 4. Due to all the problems above, the patient was scheduled for a growth ultrasound at her next surveillance ultrasound, which is in 5 days. DISCHARGE MEDICATIONS: Add nifedipine 20 mg p.o. q.6h p.r.n. contractions to stop at 36w. DISPOSITION: Home. CONDITION: Good. FOLLOWUP: Tomorrow in OB clinic. TD: 11/12/2019 10:32 SKY
== END 2019-11-12 10:50 | disposition home or self-care (01) ==
LOC: WFO 15:29 → FBP 15:31 → WFO 17:51 → FBP 17:52
PROVIDERS: ADMIT Obstetrics & Gynecology; ATTEND Obstetrics & Gynecology
DX: O26.873 Cervical shortening, third trimester (principal); O24.415 Gestational diabetes mellitus in pregnancy, controlled by oral hypoglycemic drugs; Z3A.32 32 weeks gestation of pregnancy; O16.3 Unspecified maternal hypertension, third trimester; O99.213 Obesity complicating pregnancy, third trimester; E66.9 Obesity, unspecified; Z87.891 Personal history of nicotine dependence; O99.89 Other specified diseases and conditions complicating pregnancy, childbirth and the puerperium; N85.8 Other specified noninflammatory disorders of uterus; R10.9 Unspecified abdominal pain
CPT/HCPCS: 76815; 76817; 81001; 81599; 82570; 82731; 84156; 87210; 96372; 99213; A9270; G0378; 82947; 87086; 87491; 87591; 87661; 99212

== ENCOUNTER 2019-11-12 19:46 | Outpatient (CLI) | payer MEDICAID ==
[2019-11-12 19:59] VITALS: BP 144/70
[2019-11-12] MEDS ORDERED: NIFEdipine 10 MG CAPSULE PO ONE ×2 (20:08→20:58)
--- NOTE | 2019-11-12 20:45 | PROCEDURE REPORT ---
- HPI Diagnosis/Indication for NST: Other (back pain) Current EDU 12/31/19 Gestation 33 Weeks and 0 Days Vital Signs Temperature 97.9 F 11/12/19 19:58 Heart Rate 94 11/12/19 19:58 Respiratory Rate 11/12/19 19:58 Blood Pressure 144/70 H 11/12/19 19:58 O2 Saturation 99 11/12/19 19:58 Temperature 97.9 F 11/12/19 19:58 Heart Rate 94 11/12/19 19:58 Respiratory Rate 11/12/19 19:58 Blood Pressure 144/70 H 11/12/19 19:58 O2 Saturation 99 11/12/19 19:58 - NST Procedure NST Procedure Start Time 08:47 Stop Time 09:07 - Results and Plan Findings/Impression: Complaining of sharp right sided back pain, radiated around to the right stomach and down the right thigh, is achey and sharp. No tingling or burning pain. Has a hx of LBP and is in PT for this currently. Tried to use heat and massage which did not work. Not feeling cramping pains currently. Currently all back pain is gone. BP mild range Category 1 NST [place] neg SVE unchanged (fingertip, 60/-2/post/soft) A/P: see discharge summary from today, POOC without PTL, now with lumbago that spontaneously resolved. With her POOC history a dose of nifedipine was given. She is unable to fill Rx per pharmacy until 13:00 tomorrow so a dose was given to take for home use PRN to avoid her having to return to triage again. Needs to stretch and do PT exercises daily--even when back is feeling good.
== END 2019-11-12 21:17 | disposition home or self-care (01) ==
LOC: WFO 19:46 → FBP 19:48 → WFO 21:17
PROVIDERS: ATTEND Obstetrics & Gynecology
DX: O99.89 Other specified diseases and conditions complicating pregnancy, childbirth and the puerperium (principal); M54.5 Low back pain; Z3A.33 33 weeks gestation of pregnancy
CPT/HCPCS: 99212

== ENCOUNTER 2019-11-15 19:05 | Outpatient (CLI) | payer MEDICAID ==
[2019-11-15 19:28] VITALS: BP 127/77
--- NOTE | 2019-11-15 20:16 | PROCEDURE REPORT ---
- HPI Diagnosis/Indication for NST: Gestational Diabetes Current EDU 12/31/19 Gestation 33 Weeks and 3 Days 1 Para 0 Vital Signs Temperature 98.2 F 11/15/19 19:17 Heart Rate 100 11/15/19 19:17 Respiratory Rate 16 11/15/19 19:17 Blood Pressure 126/97 H 11/15/19 19:17 O2 Saturation 99 11/15/19 19:17 Temperature 98.2 F 11/15/19 19:17 Heart Rate 100 11/15/19 19:27 Respiratory Rate 16 11/15/19 19:17 Blood Pressure 127/77 11/15/19 19:27 O2 Saturation 99 11/15/19 19:27 - NST Procedure NST Procedure Start Date 11/15/19 Start Time 19:16 Stop Time 19:42 Vibroacoustic Stimulation Used No Patient States Movement Yes EFM: 150 mod gustavo 15x15 accels no decels TOCO:quiet - Results and Plan Findings/Impression: Cat I tracing Plan: Cont with twice weekly NST and weekly CARA
== END 2019-11-15 19:49 | disposition home or self-care (01) ==
LOC: WFO 19:05 → FBP 19:15 → WFO 19:49
PROVIDERS: ATTEND Obstetrics & Gynecology
DX: O24.419 Gestational diabetes mellitus in pregnancy, unspecified control (principal); Z3A.33 33 weeks gestation of pregnancy
CPT/HCPCS: 59025

== ENCOUNTER 2019-11-18 11:03 | Outpatient (CLI) | payer MEDICAID ==
[2019-11-18 12:17] VITALS: BP 134/65
--- NOTE | 2019-11-19 07:22 | Ultrasound Report ---
PROCEDURE: OB F/U or Repeat INDICATIONS: GESTATIONAL DIABETES, HYPERTENSION IN OUTSIDE/PRIOR DATING DATA: Last menstrual period (LMP): 03/26/2019. LMP-based estimated date of delivery (MACIE): 12/31/2019. First dating scan (date and location): 06/15/2019. Estimated date of delivery (MACIE) from first dating scan: 12/31/2019. TECHNIQUE: Real-time scanning was performed of the fetus, with image documentation. Endovaginal scanning: For better assessment of the cervical length COMPARISON: 11/10/2019 FINDINGS: General: A single living intrauterine gestation is present. Presentation: Cephalic Placenta: Placental position is anterior, without previa. Amniotic fluid index: 12.4 cm, 31st percentile for gestational age. Largest pocket is 5.0 cm. heart rate: 176 beats per minute. Maternal cervical canal: Closed with U shape at the internal os, and the closed portion measuring 1.8 cm long. IMPRESSION: 1. Single live intrauterine . 2. Stable length of shortened cervix compared to the prior exam. 3. Normal amniotic fluid volume. Reviewed by: Kaylen Harvey MD on 11/18/2019 12:53 PM PDT Approved by: Kaylen Harvey MD on 11/18/2019 12:53 PM PDT Station ID: [id number]
--- NOTE | 2019-11-21 12:55 | PROCEDURE REPORT ---
- HPI Diagnosis/Indication for NST: Gestational Diabetes (reactive NST) Current EDU 12/31/19 Gestation 33 Weeks and 6 Days 1 Para 0 Vital Signs Temperature 36.7 C 11/18/19 12:15 Heart Rate 92 11/18/19 12:15 Respiratory Rate 18 11/18/19 12:15 Blood Pressure 134/65 H 11/18/19 12:15 O2 Saturation 100 11/18/19 12:15 Temperature 36.7 C 11/18/19 12:15 Heart Rate 92 11/18/19 12:15 Respiratory Rate 18 11/18/19 12:15 Blood Pressure 134/65 H 11/18/19 12:15 O2 Saturation 100 11/18/19 12:15 - NST Procedure NST Procedure Start Date 11/18/19 Start Time 12:11 Stop Time 12:38 Vibroacoustic Stimulation Used No Patient States Movement Yes - Results and Plan Plan: continue antinatal testing
== END 2019-11-18 12:45 | disposition home or self-care (01) ==
LOC: DI 11:03 → FBP 11:59 → DI 12:45
PROVIDERS: ATTEND Obstetrics & Gynecology
DX: O24.419 Gestational diabetes mellitus in pregnancy, unspecified control (principal); O16.9 Unspecified maternal hypertension, unspecified trimester
CPT/HCPCS: 59025; 76816

== ENCOUNTER 2019-11-22 17:09 | Outpatient (CLI) | payer MEDICAID ==
[2019-11-22 18:01] LABS: BASOPHILS % (AUTO) 0.4 %; EOSINOPHILS # (AUTO) 0.1 10^3/uL (0.0-0.7); EOSINOPHILS % (AUTO) 0.5 %; HGB - HEMOGLOBIN 11.3 g/dL (12.0-16.0); LYMPHOCYTES # (AUTO) 1.6 10^3/uL (1.5-3.5); LYMPHOCYTES % (AUTO) 14.2 %; MEAN CORPUSCULAR HEMOGLOBIN 28.3 pg (27.0-31.0); MEAN CORPUSCULAR HGB CONC 32.9 g/dL (32.0-36.0); MEAN CORPUSCULAR VOLUME 85.8 fL (81.0-99.0); MEAN PLATELET VOLUME 9.4 fL (7.9-10.8); MONOCYTES # (AUTO) 0.9 10^3/uL (0.0-1.0); MONOCYTES % (AUTO) 8.2 %; NEUTROPHILS # (AUTO) 8.6 10^3/uL (1.5-6.6); NEUTROPHILS % (AUTO) 76.2 %; PLT - PLATELET COUNT 220 10^3/uL (130-450); RED CELL DISTRIBUTION WIDTH 13.7 % (12.0-15.0); WHITE BLOOD COUNT 11.2 x10^3/uL (4.8-10.8)
[2019-11-22 18:18] LABS: ALBUMIN 3.3 g/dL (3.2-5.5); ALBUMIN/GLOBULIN RATIO 0.8 (1.0-2.2); BILIRUBIN,TOTAL 0.3 mg/dL (0.2-1.0); CALCIUM 9.4 mg/dL (8.5-10.3); CREATININE 0.5 mg/dL (0.4-1.0); TOTAL PROTEIN 7.4 g/dL (6.7-8.2)
[2019-11-22 18:22] LABS: CREATININE,URINE 218.2 mg/dL; PROTEIN/CREATININE RATIO,URINE 0.2 (<=0.2)
--- NOTE | 2019-12-23 11:14 | PROCEDURE REPORT ---
- HPI Diagnosis/Indication for NST: Gestational Diabetes Current EDU 12/31/19 Gestation 34 Weeks and 3 Days 1 Para 0 Vital Signs Temperature 98.6 F 11/22/19 17:30 Temperature 98.6 F 11/22/19 17:30 Heart Rate Respiratory Rate Blood Pressure O2 Saturation - NST Procedure NST Procedure Start Date 11/22/19 Start Time 17:30 Stop Time 12:38 Vibroacoustic Stimulation Used No Patient States Movement Yes EFM 130 mod gustavo 15x15 accels no decels TOCO: irritable - Results and Plan Findings/Impression: Cat I tracing Cont with twice weekly NST and weekly CARA
== END 2019-11-22 18:30 | disposition home or self-care (01) ==
LOC: FBP 17:09 → WFO 17:09
PROVIDERS: ATTEND Obstetrics & Gynecology
DX: O24.419 Gestational diabetes mellitus in pregnancy, unspecified control (principal); Z3A.34 34 weeks gestation of pregnancy
CPT/HCPCS: 36415; 59025; 80053; 82570; 84156; 84550; 85025

== ENCOUNTER 2019-11-25 10:55 | Outpatient (CLI) | payer MEDICAID ==
[2019-11-25 12:50] VITALS: BP 136/75
--- NOTE | 2019-11-25 13:17 | Ultrasound Report ---
PROCEDURE: OB F/U or Repeat INDICATIONS: GESTATIONAL DIABETES, HYPERTENSION IN OUTSIDE/PRIOR DATING DATA: Last menstrual period (LMP): 03/26/2019. LMP-based estimated date of delivery (MACIE): 12/31/2019. First dating scan (date and location): 06/15/2019. Estimated date of delivery (MACIE) from first dating scan: 12/31/2019. TECHNIQUE: Real-time scanning was performed of the fetus, with image documentation and biometric measurements. Endovaginal scanning: Not done, given the patient history. COMPARISON: 11/18/2019, 11/10/2019, 08/31/2019, 08/07/2019 FINDINGS: General: A single live intrauterine gestation is present. Presentation: Cephalic Placenta: Placental position is anterior, without previa. Amniotic fluid index: 6.9 cm, 2.7 percentile for gestational age. The largest pocket of amniotic fl uid is 4.8 cm heart rate: 163 beats per minute. Maternal cervical canal: Shortened at 1.2 cm long; normal length is 2.5 cm or more. Funneling of th e internal cervical os can be seen. biometrics: Biparietal diameter: 8.7 cm equals 35 weeks 0 days Head circumference: 32.1 cm equals 36 weeks 2 days Abdominal circumference: 30.9 cm equals 34 weeks 6 days Femur length: 6.6 cm equals 34 weeks 1 day Estimated gestational age from initial scan: 34 weeks 6 days. Composite gestational age from present scan: 34 weeks 6 days Estimated weight and percentile: 2512 g, 44th percentile Measurement variability in biometric dating: +/- 10 days from 12-20 weeks gestation, +/- 2 weeks from 20-30 weeks gestation, +/- 3 weeks at 30 weeks gestation or more. Other: Not applicable. IMPRESSION: The cervix is shortened at 1.2 cm and demonstrates funneling of the internal cervical os . The patient told the technologist that she passed a mucous plug last night. Because of these findin gs, no transvaginal imaging was performed. Abnormally low CARA at 6.9 cm, which corresponds to the 2.7 percentile. Normal interval growth compared to the prior ultrasound examination. Note: Concordant preliminary findings given by the software tools developer upon the completion of the examination to Dr. Enrique. Reviewed by: Mark Varela MD on 11/25/2019 12:16 PM AKDT Approved by: Mark Varela MD on 11/25/2019 12:16 PM AKDT Station ID: [id number]
[2019-11-25] MEDS ORDERED: LACTATED RINGERS 1,000 ML IV ONE ×2 (13:19→13:24)
[2019-11-25 14:12] LABS: RUPTURE OF MEMBRANES PLUS NEGATIVE (NEGATIVE)
== END 2019-11-25 14:49 | disposition home or self-care (01) ==
LOC: DI 10:55 → FBP 12:30 → DI 14:49
PROVIDERS: ATTEND Obstetrics & Gynecology
DX: O24.419 Gestational diabetes mellitus in pregnancy, unspecified control (principal); O16.3 Unspecified maternal hypertension, third trimester; Z3A.34 34 weeks gestation of pregnancy
CPT/HCPCS: 59025; 76816; 84112; 99212; J7120

== ENCOUNTER 2019-11-26 11:07 | Outpatient (CLI) | payer MEDICAID ==
--- NOTE | 2019-11-26 12:12 | Ultrasound Report ---
PROCEDURE: OB Limited INDICATIONS: Repeat CARA, Oligohydramnios, IV hydration OUTSIDE/PRIOR DATING DATA: Last menstrual period (LMP): 03/26/2019. LMP-based estimated date of delivery (MACIE): 12/31/2019. First dating scan (date and location): 06/15/2019. Estimated date of delivery (MACIE) from first dating scan: 12/31/2019. TECHNIQUE: Real-time scanning was performed of the fetus, with image documentation. Endovaginal scanning: Not performed COMPARISON: Multiple prior studies, the most recent from 11/25/2019 FINDINGS: A single living intrauterine gestation is present. Presentation: Cephalic Placenta: Placental position is anterior, without previa. Amniotic fluid index: 9.9 cm, 13.5 percentile for gestational age. heart rate: 140 beats per minutes. Maternal cervical canal: Grossly closed and measuring About 2.0 cm long; normal length is 2.5 cm or m ore. This was suboptimally seen due to positioning of the head. Estimated gestational age from initial scan: 35 weeks 0 days. IMPRESSION: 1. Single living intrauterine with an CARA of 9.9 cm, within normal limits. 2. Grossly closed, but short cervix. Reviewed by: Kaylen Harvey MD on 11/26/2019 11:11 AM ROSA MARIA Approved by: Kaylen Harvey MD on 11/26/2019 11:11 AM ROSA MARIA Station ID: [id number]
== END 2019-11-26 11:52 | disposition home or self-care (01) ==
LOC: WFO 11:07 → FBP 11:09 → WFO 11:52
PROVIDERS: ATTEND Obstetrics & Gynecology
DX: O26.873 Cervical shortening, third trimester (principal); Z3A.35 35 weeks gestation of pregnancy
CPT/HCPCS: 76815

== ENCOUNTER 2019-11-29 20:01 | Outpatient (CLI) | payer MEDICAID ==
[2019-11-29 20:40] VITALS: BP 133/78
--- NOTE | 2019-12-03 14:24 | PROCEDURE REPORT ---
- HPI Diagnosis/Indication for NST: Gestational Diabetes Current EDU 12/31/19 Gestation 35 Weeks and 3 Days 1 Para 0 Vital Signs Temperature 98.8 F 11/29/19 20:29 Heart Rate 88 11/29/19 20:29 Respiratory Rate 18 11/29/19 20:29 Blood Pressure 133/78 H 11/29/19 20:29 O2 Saturation 99 11/29/19 20:29 Temperature 98.8 F 11/29/19 20:29 Heart Rate 88 11/29/19 20:29 Respiratory Rate 18 11/29/19 20:29 Blood Pressure 133/78 H 11/29/19 20:29 O2 Saturation 99 11/29/19 20:29 - NST Procedure NST Procedure Start Date 11/29/19 Start Time 20:28 Stop Time 20:52 Vibroacoustic Stimulation Used Yes Patient States Movement Yes EFM 135 mod gustavo 15x15 accels, gustavo decels TOCO: quiet - Results and Plan Findings/Impression: CAT II tracing, needs extended EFM and CARA
== END 2019-11-29 21:05 | disposition home or self-care (01) ==
LOC: WFO 20:01 → FBP 20:16 → WFO 21:05
PROVIDERS: ATTEND Obstetrics & Gynecology
DX: O24.419 Gestational diabetes mellitus in pregnancy, unspecified control (principal); Z3A.35 35 weeks gestation of pregnancy
CPT/HCPCS: 59025

== ENCOUNTER 2019-12-02 11:03 | Outpatient (CLI) | payer MEDICAID ==
[2019-12-02 11:48] VITALS: BP 119/83
--- NOTE | 2019-12-02 13:45 | PROCEDURE REPORT ---
- HPI Diagnosis/Indication for NST: Gestational Diabetes Current EDU 12/31/19 Gestation 35 Weeks and 6 Days 1 Para 0 Vital Signs Temperature 98.2 F 12/02/19 11:46 Heart Rate 92 12/02/19 11:46 Respiratory Rate 12/02/19 11:46 Blood Pressure 119/83 H 12/02/19 11:46 O2 Saturation 99 12/02/19 11:46 Temperature 98.2 F 12/02/19 11:46 Heart Rate 92 12/02/19 11:46 Respiratory Rate 12/02/19 11:46 Blood Pressure 119/83 H 12/02/19 11:46 O2 Saturation 99 12/02/19 11:46 - NST Procedure NST Procedure Start Date 12/02/19 Start Time 11:42 Stop Time 12:02 Patient States Movement Yes - Results and Plan Findings/Impression: Category 1 NST [place] neg Continue ongoing surveillance
--- NOTE | 2019-12-03 10:44 | Ultrasound Report ---
PROCEDURE: OB F/U or Repeat INDICATIONS: GESTATIONAL DIABETES, HYPERTENSION IN OUTSIDE/PRIOR DATING DATA: Last menstrual period (LMP): 03/26/2019. LMP-based estimated date of delivery (MACIE): 12/31/2019. First dating scan (date and location): 06/15/2019. Estimated date of delivery (MACIE) from first dating scan: 12/31/2019. TECHNIQUE: Real-time scanning was performed of the fetus, with image documentation and biometric measurements. Endovaginal scanning: Not needed COMPARISON: 11/09, 11/17, 11/24, 11/26/2019 OB ultrasound reviewed FINDINGS: General: A single living intrauterine gestation is present. Presentation: Cephalic Placenta: Placental position is anterior, without previa. Amniotic fluid index: 9.2 cm, 11 percentile for gestational age. heart rate: 145 beats per minute. Maternal cervical canal: 1.8 cm long; normal length is 2.5 cm or more. Other: Not applicable. IMPRESSION: Limited study and clinician request, amniotic fluid index evaluation. The current amniot ic fluid volume is within normal range, 9.2 cm, at the 11th percentile for current gestational age. Note is made of a relatively short cervical length of 1.8 cm, with 2.5 cm cervical length at the lowe r limits of normal at this time. No funneling seen. Reviewed by: Vic Barrow MD on 12/03/2019 10:43 AM PDT Approved by: Vic Barrow MD on 12/03/2019 10:43 AM PDT Station ID: [id number]
== END 2019-12-02 12:06 | disposition home or self-care (01) ==
LOC: DI 11:03 → FBP 11:31 → DI 12:06
PROVIDERS: ATTEND Obstetrics & Gynecology
DX: O24.419 Gestational diabetes mellitus in pregnancy, unspecified control (principal); O16.3 Unspecified maternal hypertension, third trimester; O09.93 Supervision of high risk pregnancy, unspecified, third trimester; Z3A.35 35 weeks gestation of pregnancy
CPT/HCPCS: 59025; 76816

== ENCOUNTER 2019-12-03 08:00 | Outpatient (CLI) | payer MEDICAID ==
[2019-12-04 12:01] LABS: CREATININE,URINE 234.5 mg/dL; PROTEIN/CREATININE RATIO,URINE 0.1 (<=0.2)
== END 2019-12-03 23:59 ==
LOC: LAB.R 08:00
PROVIDERS: ATTEND Obstetrics & Gynecology
DX: O09.90 Supervision of high risk pregnancy, unspecified, unspecified trimester (principal); Z36.85 Encounter for antenatal screening for Streptococcus B; Z3A.00 Weeks of gestation of pregnancy not specified
CPT/HCPCS: 81599; 82570; 84156; 87491; 87591; 87661; 87797

== ENCOUNTER 2019-12-04 11:11 | Outpatient (CLI) | payer MEDICAID ==
[2019-12-04 11:59] VITALS: BP 141/75
[2019-12-04] MEDS ORDERED: ACETAMINOPHEN 500 MG TABLET PO ONE (12:30)
[2019-12-04 12:36] LABS: BASOPHILS % (AUTO) 0.1 %; EOSINOPHILS % (AUTO) 0.5 %; HGB - HEMOGLOBIN 11.1 g/dL (12.0-16.0); LYMPHOCYTES # (AUTO) 1.2 10^3/uL (1.5-3.5); LYMPHOCYTES % (AUTO) 15.7 %; MEAN CORPUSCULAR HEMOGLOBIN 28.1 pg (27.0-31.0); MEAN CORPUSCULAR HGB CONC 33.2 g/dL (32.0-36.0); MEAN CORPUSCULAR VOLUME 84.6 fL (81.0-99.0); MEAN PLATELET VOLUME 9.6 fL (7.9-10.8); MONOCYTES # (AUTO) 0.6 10^3/uL (0.0-1.0); MONOCYTES % (AUTO) 8.1 %; NEUTROPHILS # (AUTO) 5.8 10^3/uL (1.5-6.6); NEUTROPHILS % (AUTO) 75.2 %; PLT - PLATELET COUNT 189 10^3/uL (130-450); RED BLOOD COUNT 3.95 10^6/uL (4.20-5.40); RED CELL DISTRIBUTION WIDTH 14.1 % (12.0-15.0); WHITE BLOOD COUNT 7.7 x10^3/uL (4.8-10.8)
[2019-12-04 12:47] LABS: ALBUMIN 2.9 g/dL (3.2-5.5); ALBUMIN/GLOBULIN RATIO 0.8 (1.0-2.2); ALKALINE PHOSPHATASE 114 IU/L (42-121); ALT ALANINE AMINOTRANSFERASE 15 IU/L (10-60); AST ASPARTATE AMINOTRANSFERASE 13 IU/L (10-42); BILIRUBIN,TOTAL < 0.2 mg/dL (0.2-1.0); BUN - BLOOD UREA NITROGEN 9 mg/dL (6-20); CALCIUM 9.4 mg/dL (8.5-10.3); CARBON DIOXIDE - CO2 20 mmol/L (21-32); CHLORIDE 106 mmol/L (101-111); CREATININE 0.5 mg/dL (0.4-1.0); GLUCOSE 107 mg/dL (70-100); SODIUM 136 mmol/L (135-145); TOTAL PROTEIN 6.7 g/dL (6.7-8.2)
--- NOTE | 2019-12-05 18:08 | PROCEDURE REPORT ---
- HPI Diagnosis/Indication for NST: Gestational Diabetes Current EDU 12/31/19 Gestation 36 Weeks and 1 Days 1 Para 0 Vital Signs Temperature 97.8 F 12/04/19 11:44 Heart Rate 98 12/04/19 11:44 Respiratory Rate 18 12/04/19 11:44 Blood Pressure 150/94 H 12/04/19 11:44 O2 Saturation 97 12/04/19 11:44 Temperature 97.8 F 12/04/19 11:44 Heart Rate 98 12/04/19 11:44 Respiratory Rate 18 12/04/19 11:44 Blood Pressure 141/75 H 12/04/19 11:59 O2 Saturation 97 12/04/19 11:44 - NST Procedure NST Procedure Start Date 12/04/19 Start Time 11:35 Stop Time 12:22 Vibroacoustic Stimulation Used No Patient States Movement Yes - Results and Plan Findings/Impression: Category 1 NST [place] neg Continue surveillance
== END 2019-12-04 13:09 | disposition home or self-care (01) ==
LOC: WFO 11:11 → FBP 11:14 → WFO 13:09
PROVIDERS: ATTEND Obstetrics & Gynecology
DX: O24.419 Gestational diabetes mellitus in pregnancy, unspecified control (principal); Z3A.36 36 weeks gestation of pregnancy
CPT/HCPCS: 36415; 59025; 80053; 83615; 84450; 84550; 85025; A9270; 82570; 84156

== ENCOUNTER 2019-12-06 19:15 | Outpatient (CLI) | payer MEDICAID ==
[2019-12-06 20:12] VITALS: BP 135/81
--- NOTE | 2019-12-08 09:13 | PROVIDER PROGRESS NOTE ---
Subjective - Subjective Subjective: Called with a BP of 160. Advised to come in. No NEVAREZ, visual changes, or upper abd pain. Serial BPs here normal to mild range PIH labs normal P:C normal A/P: Gestational hypertension, worsening. Resume nifedipine but not for UC but now for BP take 10mg po bid. RTC for 37w IOL arranged today.
--- NOTE | 2019-12-27 15:07 | PROCEDURE REPORT ---
- HPI Diagnosis/Indication for NST: Gestational Hypertension Current EDU 12/31/19 Gestation 36 Weeks and 3 Days 1 Para 0 Vital Signs Temperature 97.7 F 12/06/19 19:31 Heart Rate 104 H 12/06/19 19:31 Respiratory Rate 16 12/06/19 19:31 Blood Pressure 146/85 H 12/06/19 19:31 O2 Saturation 99 12/06/19 19:31 Temperature 97.7 F 12/06/19 19:31 Heart Rate 105 H 12/06/19 20:00 Respiratory Rate 16 12/06/19 19:31 Blood Pressure 135/81 H 12/06/19 20:00 O2 Saturation 99 12/06/19 19:31 - NST Procedure NST Procedure Start Date 12/06/19 Start Time 19:21 Stop Time 20:00 Vibroacoustic Stimulation Used No Patient States Movement Yes - Results and Plan Findings/Impression: Category 1 NST Return for IOL Plan: Return for IOL
== END 2019-12-06 20:05 | disposition home or self-care (01) ==
LOC: WFO 19:15 → FBP 19:17 → WFO 20:05
PROVIDERS: ATTEND Obstetrics & Gynecology
DX: O13.3 Gestational [pregnancy-induced] hypertension without significant proteinuria, third trimester (principal); Z3A.36 36 weeks gestation of pregnancy
CPT/HCPCS: 59025

== ENCOUNTER 2019-12-07 07:59 | Outpatient (CLI) | payer MEDICAID ==
[2019-12-07 08:24] VITALS: BP 134/76
[2019-12-07 08:41] LABS: BASOPHILS % (AUTO) 0.2 %; EOSINOPHILS # (AUTO) 0.1 10^3/uL (0.0-0.7); EOSINOPHILS % (AUTO) 0.9 %; HGB - HEMOGLOBIN 10.9 g/dL (12.0-16.0); LYMPHOCYTES # (AUTO) 1.5 10^3/uL (1.5-3.5); LYMPHOCYTES % (AUTO) 17.4 %; MEAN CORPUSCULAR HGB CONC 33.1 g/dL (32.0-36.0); MEAN CORPUSCULAR VOLUME 84.6 fL (81.0-99.0); MEAN PLATELET VOLUME 9.7 fL (7.9-10.8); MONOCYTES # (AUTO) 0.7 10^3/uL (0.0-1.0); MONOCYTES % (AUTO) 8.1 %; NEUTROPHILS # (AUTO) 6.2 10^3/uL (1.5-6.6); NEUTROPHILS % (AUTO) 72.6 %; PLT - PLATELET COUNT 202 10^3/uL (130-450); RED BLOOD COUNT 3.89 10^6/uL (4.20-5.40); RED CELL DISTRIBUTION WIDTH 14.2 % (12.0-15.0); WHITE BLOOD COUNT 8.6 x10^3/uL (4.8-10.8)
[2019-12-07 08:51] LABS: ALBUMIN 2.8 g/dL (3.2-5.5); ALBUMIN/GLOBULIN RATIO 0.7 (1.0-2.2); BILIRUBIN,TOTAL 0.3 mg/dL (0.2-1.0); CALCIUM 8.9 mg/dL (8.5-10.3); CREATININE 0.5 mg/dL (0.4-1.0); TOTAL PROTEIN 6.9 g/dL (6.7-8.2)
[2019-12-07 08:53] LABS: CREATININE,URINE 140.9 mg/dL; PROTEIN/CREATININE RATIO,URINE 0.2 (<=0.2)
--- NOTE | 2020-01-02 09:23 | PROCEDURE REPORT ---
- HPI Diagnosis/Indication for NST: Gestational Diabetes Current EDU 12/31/19 Gestation 36 Weeks and 4 Days 1 Para 0 Vital Signs Temperature 96.8 F L 12/07/19 08:19 Heart Rate 91 12/07/19 08:19 Respiratory Rate 18 12/07/19 08:19 Blood Pressure 134/76 H 12/07/19 08:19 O2 Saturation 98 12/07/19 08:19 Temperature 96.8 F L 12/07/19 08:19 Heart Rate 91 12/07/19 08:19 Respiratory Rate 18 12/07/19 08:19 Blood Pressure 134/76 H 12/07/19 08:19 O2 Saturation 98 12/07/19 08:19 - NST Procedure NST Procedure Start Date 12/07/19 Start Time 08:15 Stop Time 08:42 Vibroacoustic Stimulation Used No Patient States Movement Yes - Results and Plan Findings/Impression: Category 1 NST Continue ongoing surveillance
== END 2019-12-07 09:25 | disposition home or self-care (01) ==
LOC: WFO 07:59 → FBP 08:03 → WFO 09:25
PROVIDERS: ATTEND Obstetrics & Gynecology
DX: O24.419 Gestational diabetes mellitus in pregnancy, unspecified control (principal); Z3A.36 36 weeks gestation of pregnancy
CPT/HCPCS: 36415; 59025; 80053; 82570; 83615; 84156; 84450; 84550; 85025

== ENCOUNTER 2019-12-10 16:25 | Inpatient (IN) | payer MEDICAID ==
[2019-12-10] MEDS ORDERED: SODIUM CHLORIDE FLUSH 0.9% 10 ML SYRINGE IVP PRN (16:39)
[2019-12-10] MEDS ORDERED: OXYTOCIN/SODIUM CHLORIDE 500 ML IV PRN ×2 (16:39)
[2019-12-10] MEDS ORDERED: TRANEXAMIC ACID 1,000 MG in SODIUM CHLORIDE 0.9% 100ML 100 ML IV PRN (16:39)
[2019-12-10] MEDS ORDERED: ACETAMINOPHEN 325 MG TABLET PO PRN (16:39)
[2019-12-10] MEDS ORDERED: miSOPROStoL 200 MCG TABLET PR PRN (16:39)
[2019-12-10] MEDS ORDERED: OXYTOCIN 10 UNIT/ML VIAL IM PRN (16:39)
[2019-12-10] MEDS ORDERED: miSOPROStoL 200 MCG TABLET BC PRN (16:39)
[2019-12-10] MEDS ORDERED: METHYLERGONOVINE 0.2 MG/ML VIAL IM PRN ×2 (16:39)
[2019-12-10] MEDS ORDERED: LIDOCAINE-MPF 1% 30 ML VIAL ID PRN (16:39)
[2019-12-10] MEDS ORDERED: ONDANSETRON 4 MG/2 ML VIAL IVP PRN (16:39)
[2019-12-10] MEDS ORDERED: CARBOPROST TROMETHAMINE 250 MCG/ML AMP IM PRN ×2 (16:39)
--- NOTE | 2019-12-10 16:49 | HISTORY & PHYSICAL EXAMINATION ---
History of Present Illness - History of Present Illness HPI Comment/Other: CC: IOL HPI: ready ROS: no fevers, cough, NEVAREZ, visual changes, or upper abd pain. No LOF or VB. Some UC but nothing regular. Good FM. PMH: Obese BMI 40, gestational hypertension requiring nifedipine, A2 GDM on insulin 8U per hs PSH: wisdom teeth Meds: insulin, PNV, ASA 81mg, iron SH: no t/e/d Allergies: chloraseptic spray --> throat swelling FH: father with PE OB: G1=current *Dating Criteria: Initial U/S: 06/15/2019 11.4wks c/w LMP for MACIE of 12/31/2019 Initial U/S: 06/15/2019 11.4wks c/w LMP for MACIE of 12/31/2019. Placenta anterior fundal, with possible succenturiate lobe covering internal os, attention needed on later exams AB pos/Rubella *equiv* Gentic testing: QUAD- neg FAS: FAS: WNL. EFW 35%, CARA appears normal. spine and heart not fully seen, will need to redo in 2-4 weeks. F/U US: spine and outflow tracts WNL Glucola : 1hr 192; 3hr GTT: ABNORMAL 111/203/139/136. TDAP : given 10/29/2019, flu vax given 11/2019 GBS & GC/CT at 36 weeks: neg/neg/neg HSV: denies self and partner Breast pump Rx Jay. baby BOY: Leroy Gaston O: BP mild range Alert, smiling, NAD EFW 8.75# by bri Vertex by JONATHON, membranes swept in clinic 1-2/75/-2/soft/posterior Category 1 NST Occasional contractions A/P: 24yo G1 at 37w0d by LMP c/w 11w US here for IOL for worsening gestational hypertension requiring nifedipine for occasional severe range BPs. Will recheck PIH labs that have been normal so far but P:C has increased from 0 to 0.2. Hold antihypertensives for now. Gestational diabetes: on small amount of insulin (8U NPH at hs), do not anticipate insulin requirement in labor. Will check 1h PPs and fasting. IOL: [place] is 6, will start with misoprostol and then transition to pitocin. Discussed risk of IOL that are similar to spontaneous labor risk and IOL can take much longer. Questions answered and consent signed. Anticipate . Fetus: male, vertex, 8.75# EFW, normal anatomy scan and quad screen. Last EFW was 44%ile on 11/24 with EFW 2512g. VTE prophylaxis: pt is obese and her father had a PE. Will do SCD PRN epidural and will add heparin to start . : Rubella vax needed. Rh+, s/p tdap and flu vax. l History - Past Medical History Cardiovascular: reports: None Respiratory: reports: None Neuro: reports: None Endocrine/Autoimmune: reports: None Meds/Allgy - Home Medications Home Medications: Ambulatory Orders Medication Instructions Recorded Confirmed predniSONE [Deltasone] 40 mg PO DAILY 4 Days tablet 02/04/16 Metformin HCl 500 mg PO QPM 10/16/19 10/16/19 Metoclopramide [Reglan] 10 mg PO Q6H PRN 10/16/19 10/16/19 Ondansetron Odt [Zofran Odt] 4 mg PO Q6H PRN 10/16/19 10/16/19 Pnv No.95/Ferrous Fum/Folic AC 1 each PO 10/16/19 [ Vitamin Tablet] - Allergies Allergies/Adverse Reactions: Allergies Allergy/AdvReac Type Severity Reaction Status Date / Time phenol [From Chloraseptic] Allergy Anaphylaxis Verified 11/10/19 20:17 watermelon Allergy Anaphylaxis Verified 11/10/19 20:17
[2019-12-10] MEDS ORDERED: miSOPROStoL 100 MCG TABLET PO SCH (17:00)
[2019-12-10 17:27] LABS: BASOPHILS % (AUTO) 0.2 %; EOSINOPHILS # (AUTO) 0.1 10^3/uL (0.0-0.7); EOSINOPHILS % (AUTO) 0.6 %; HGB - HEMOGLOBIN 11.2 g/dL (12.0-16.0); LYMPHOCYTES # (AUTO) 1.8 10^3/uL (1.5-3.5); LYMPHOCYTES % (AUTO) 18.1 %; MEAN CORPUSCULAR HEMOGLOBIN 27.9 pg (27.0-31.0); MEAN CORPUSCULAR VOLUME 84.5 fL (81.0-99.0); MEAN PLATELET VOLUME 9.8 fL (7.9-10.8); MONOCYTES # (AUTO) 0.9 10^3/uL (0.0-1.0); MONOCYTES % (AUTO) 8.9 %; NEUTROPHILS % (AUTO) 71.7 %; PLT - PLATELET COUNT 264 10^3/uL (130-450); RED BLOOD COUNT 4.01 10^6/uL (4.20-5.40); RED CELL DISTRIBUTION WIDTH 14.1 % (12.0-15.0); WHITE BLOOD COUNT 9.7 x10^3/uL (4.8-10.8)
[2019-12-10] MEDS: SODIUM CHLORIDE FLUSH 0.9% 10 ML SYRINGE IVP SCH (17:35)
[2019-12-10] MEDS: LACTATED RINGERS 1,000 ML IV SCH (17:41)
[2019-12-10] MEDS: OXYTOCIN/SODIUM CHLORIDE 500 ML IV SCH (17:41)
[2019-12-10 17:49] LABS: ALBUMIN/GLOBULIN RATIO 0.7 (1.0-2.2); BILIRUBIN,TOTAL 0.5 mg/dL (0.2-1.0); CALCIUM 9.7 mg/dL (8.5-10.3); CREATININE 0.5 mg/dL (0.4-1.0); TOTAL PROTEIN 7.2 g/dL (6.7-8.2)
[2019-12-10 18:45] LABS: CREATININE,URINE 115.8 mg/dL; PROTEIN/CREATININE RATIO,URINE 0.1 (<=0.2)
[2019-12-10] MEDS ORDERED: INSULIN REGULAR HUMAN 100 UNIT/1 ML 10 ML MDV SUBQ STA (19:27)
[2019-12-10] MEDS ORDERED: INSULIN REGULAR HUMAN 300 UNIT/3 ML VIAL SUBQ ONE (20:00)
[2019-12-10] MEDS ORDERED: INSULIN REGULAR HUMAN 300 UNIT/3 ML VIAL ONE (20:05)
[2019-12-11] MEDS: OXYTOCIN/SODIUM CHLORIDE 500 ML IV SCH (00:09)
[2019-12-11] MEDS: fentaNYL 100 MCG/2 ML VIAL IVP PRN ×3 (00:42→12:32)
[2019-12-11] MEDS: SODIUM CHLORIDE FLUSH 0.9% 10 ML SYRINGE IVP SCH ×2 (00:43→23:44)
[2019-12-11] MEDS: LACTATED RINGERS 1,000 ML IV SCH ×3 (08:04→16:58)
--- NOTE | 2019-12-11 08:08 | PROVIDER PROGRESS NOTE ---
Subjective - Subjective Subjective: Pain is mod to severe, has pain-free episodes between contractions. No bleeding or LOF. BP normal to mild range, AVSS Alert, appears tired, NAD Abd soft between contractions, one UC palpated mild 3-4/80/-3 Cat 1 NST [place] q4-5 P:C normal, PIH labs normal Fasting sugar 108 this am. A/P: 24yo P0 at 37w1d IOL for gest HTN and A2GDM. BP stable and no evidence of preeclampsia. Sugars mildly elevated but fine going into the energy requirement of labor. Did get 2U of regular last night to bring down a postprandial elevation. High station is concerning in this obese patient, will watch, encouraged OOB and position changes. Has had SVE change despite inadequate labor pattern. Will increase pitocin to achieve UC q 2-3min. SCD if gets epidural. Objective - Vital Signs/Intake & Output Vital Signs: Vital Signs x48h Temp 12/11/19 04:14 97.7 F Intake & Output: Intake & Output 12/08/19 12/09/19 12/10/19 12/11/19 23:59 23:59 23:59 23:59 Intake Total 8.483 Output Total 400 Balance -391.517 - Lab Results Fish Bones: 12/10/19 17:12 12/10/19 17:12 Other Labs: Lab Results x24hrs 12/11/19 12/10/19 12/10/19 Range/Units 06:03 19:09 18:20 WBC (4.8-10.8) x10^3/uL RBC (4.20-5.40) 10^6/uL Hgb (12.0-16.0) g/dL Hct (37.0-47.0) % MCV (81.0-99.0) fL MCH (27.0-31.0) pg MCHC (32.0-36.0) g/dL RDW (12.0-15.0) % Plt Count (130-450) 10^3/uL MPV (7.9-10.8) fL Neut # (Auto) (1.5-6.6) 10^3/uL Lymph # (Auto) (1.5-3.5) 10^3/uL [place] # (Auto) (0.0-1.0) 10^3/uL Eos # (Auto) (0.0-0.7) 10^3/uL Baso # (Auto) (0.0-0.1) 10^3/uL Absolute Nucleated RBC x10^3/uL Nucleated RBC % /100WBC Sodium (135-145) mmol/L Potassium (3.5-5.0) mmol/L Chloride (101-111) mmol/L Carbon Dioxide (21-32) mmol/L Anion Gap (6-13) BUN (6-20) mg/dL Creatinine (0.4-1.0) mg/dL Estimated GFR (MDRD) (>89) Glucose (70-100) mg/dL POC Whole Bld Glucose 108 H 164 H (70 - 100) mg/dL Calcium (8.5-10.3) mg/dL Total Bilirubin (0.2-1.0) mg/dL AST (10-42) IU/L ALT (10-60) IU/L Alkaline Phosphatase (42-121) IU/L Total Protein (6.7-8.2) g/dL Albumin (3.2-5.5) g/dL Globulin (2.1-4.2) g/dL Albumin/Globulin Ratio (1.0-2.2) Urine Creatinine 115.8 mg/dL Ur Total Protein Timed 15 mg/dL Protein/Creatinin Ratio 0.1 (<=0.2) Blood Type Antibody Screen 12/10/19 12/10/19 12/10/19 Range/Units 17:12 17:12 17:12 WBC 9.7 (4.8-10.8) x10^3/uL RBC 4.01 L (4.20-5.40) 10^6/uL Hgb 11.2 L (12.0-16.0) g/dL Hct 33.9 L (37.0-47.0) % MCV 84.5 (81.0-99.0) fL MCH 27.9 (27.0-31.0) pg MCHC 33.0 (32.0-36.0) g/dL RDW 14.1 (12.0-15.0) % Plt Count 264 (130-450) 10^3/uL MPV 9.8 (7.9-10.8) fL Neut # (Auto) 7.0 H (1.5-6.6) 10^3/uL Lymph # (Auto) 1.8 (1.5-3.5) 10^3/uL [place] # (Auto) 0.9 (0.0-1.0) 10^3/uL Eos # (Auto) 0.1 (0.0-0.7) 10^3/uL Baso # (Auto) 0.0 (0.0-0.1) 10^3/uL Absolute Nucleated RBC 0.00 x10^3/uL Nucleated RBC % 0.0 /100WBC Sodium 136 (135-145) mmol/L Potassium 3.9 (3.5-5.0) mmol/L Chloride 104 (101-111) mmol/L Carbon Dioxide 22 (21-32) mmol/L Anion Gap 10.0 (6-13) BUN 9 (6-20) mg/dL Creatinine 0.5 (0.4-1.0) mg/dL Estimated GFR (MDRD) 154 (>89) Glucose 93 (70-100) mg/dL POC Whole Bld Glucose (70 - 100) mg/dL Calcium 9.7 (8.5-10.3) mg/dL Total Bilirubin 0.5 (0.2-1.0) mg/dL AST 12 (10-42) IU/L ALT 14 (10-60) IU/L Alkaline Phosphatase 117 (42-121) IU/L Total Protein 7.2 (6.7-8.2) g/dL Albumin 3.0 L (3.2-5.5) g/dL Globulin 4.2 (2.1-4.2) g/dL Albumin/Globulin Ratio 0.7 L (1.0-2.2) Urine Creatinine mg/dL Ur Total Protein Timed mg/dL Protein/Creatinin Ratio (<=0.2) Blood Type AB POSITIVE Antibody Screen NEGATIVE
[2019-12-11 15:36] LABS: RUPTURE OF MEMBRANES PLUS NEGATIVE (NEGATIVE)
[2019-12-11] MEDS ORDERED: BUPIVACAINE 0.25% PF 10 ML VIAL ONE (15:53)
[2019-12-11] MEDS ORDERED: fentaNYL 100 MCG/2 ML VIAL ONE ×2 (15:53→21:07)
[2019-12-11] MEDS ORDERED: ROPIVACAINE 0.2% 200 MG/100 ML BAG EP ONE (15:54)
[2019-12-11] MEDS ORDERED: diphenhydrAMINE INJ 50 MG/ML VIAL IVP PRN (16:32)
[2019-12-11] MEDS ORDERED: NALOXONE 0.4 MG/ML VIAL IVP PRN (16:32)
[2019-12-11] MEDS ORDERED: ROPIVACAINE 0.2% 200 MG/100 ML BAG EP PRN ×3 (16:32→21:13)
[2019-12-11] MEDS ORDERED: ONDANSETRON 4 MG/2 ML VIAL IVP PRN (16:32)
[2019-12-11] MEDS ORDERED: METOCLOPRAMIDE 10 MG/2 ML VIAL IVP PRN (16:32)
[2019-12-11] MEDS ORDERED: ePHEDrine 50 MG/ML VIAL IVP PRN (16:32)
[2019-12-11] MEDS ORDERED: NALBUPHINE 10 MG/ML AMP IVP PRN (16:32)
--- NOTE | 2019-12-11 16:37 | ANESTHESIA ---
Pre-Anesthesia VS, & Labs - Diagnosis active labor - Procedure labor epidural Vital Signs: Temp Pulse Resp BP Pulse Ox 36.5 C 12/11/19 04:14 Height: 5 ft 7 in Weight (kg): 134.808 kg Body Mass Index: 46.5 BMI Classification: Morbidly Obese - Is Patient ?: Yes - Lab Results Current Lab Results: Laboratory Tests 12/11/19 09:48: POC Whole Bld Glucose 129 H 12/11/19 06:03: POC Whole Bld Glucose 108 H 12/10/19 19:09: POC Whole Bld Glucose 164 H 12/10/19 17:12: Blood Type AB POSITIVE, Antibody Screen NEGATIVE 12/10/19 17:12: Sodium 136, Potassium 3.9, Chloride 104, Carbon Dioxide 22, Anion Gap 10.0, BUN 9, Creatinine 0.5, Estimated GFR (MDRD) 154, Glucose 93, Ca lcium 9.7, Total Bilirubin 0.5, AST 12, ALT 14, Alkaline Phosphatase 117, Total Protein 7.2, Albumin 3.0 L, Globulin 4.2, Albumin/Globulin Ratio 0.7 L 12/10/19 17:12: WBC 9.7, RBC 4.01 L, Hgb 11.2 L, Hct 33.9 L, MCV 84.5, MCH 27.9, MCHC 33.0, RDW 14.1, Plt Count 264, MPV 9.8, Neut # (Auto) 7.0 H, Lymph # (Auto) 1.8, [place] # (Auto) 0.9, Eos # (Auto) 0.1, Baso # (Auto) 0.0, Absolute Nucleated RBC 0.00, Nucleated RBC % 0.0 Lab results reviewed: Yes Fish Bones: 12/10/19 17:12 12/10/19 17:12 Home Medications and Allergies Home Medications: Ambulatory Orders Aspirin [Adult Aspirin Regimen] 81 mg PO DAILY 12/10/19 Ferrous Gluconate [Iron] 240 mg PO DAILY 12/10/19 metFORMIN [Glucophage] 1,000 mg PO BIDWM 12/10/19 Active Medications Acetaminophen (Tylenol) 650 mg PO Q6H PRN PRN Reason: Pain or Fever Carboprost Tromethamine (Hemabate) 250 mcg IM Q15M PRN PRN Reason: Step 4: Hemorrhage protocol Stop: 12/15/19 16:39 Fentanyl (Fentanyl) 100 mcg IVP Q1H PRN PRN Reason: PAIN Last Admin: 12/11/19 12:32 Dose: 100 mcg Documented by: Oxytocin/Sodium Chloride (Pitocin/Sodium Chloride) 500 mls @ 999 mls/hr IV PRN PRN; Protocol PRN Reason: POST- HEMORR PREVENTION Stop: 12/15/19 16:39 Tranexamic Acid 1,000 mg/ (Sodium Chloride) 110 mls @ 660 mls/hr IV .ONCE PRN PRN Reason: EBL >1200mL and within 3hr Stop: 12/15/19 16:39 Oxytocin/Sodium Chloride (Pitocin/Sodium Chloride) 500 mls @ 1 mls/hr IV TITR CAS; Protocol Last Titration: 12/11/19 12:37 Dose: 10 milliunit/min, 10 mls/hr Documented by: Oxytocin/Sodium Chloride (Pitocin/Sodium Chloride) 500 mls @ 999 mls/hr IV PRN PRN; Protocol PRN Reason: POST- HEMORR PREVENTION Lactated Ringer's (Lr) 1,000 mls @ 75 mls/hr IV .[id number] [facility] Last Admin: 12/11/19 08:04 Dose: 75 mls/hr Documented by: Lidocaine HCl (Xylocaine-Mpf 1% Vial) 30 ml ID .ONCE PRN PRN Reason: PERINEAL REPAIR Stop: 12/15/19 16:39 Methylergonovine Maleate (Methergine Inj) 0.2 mg IM .ONCE PRN PRN Reason: Step 2: Hemorrhage protocol Stop: 12/15/19 16:39 Methylergonovine Maleate (Methergine Inj) 0.2 mg IM Q4HR PRN PRN Reason: Post- Hemorrhage Misoprostol (Cytotec) 800 mcg BC .ONCE PRN PRN Reason: Step 3: Hemorrhage protocol Stop: 12/15/19 16:39 Misoprostol (Cytotec) 50 mcg PO Q4HR [facility] Last Admin: 12/10/19 17:35 Dose: 50 mcg Documented by: Ondansetron HCl (Zofran Inj) 4 mg IVP Q4HR PRN PRN Reason: Nausea / Vomiting Oxytocin (Pitocin) 10 unit IM .ONCE PRN PRN Reason: Step one: If no IV access Stop: 12/15/19 16:39 Sodium Chloride (Normal Saline Flush 0.9%) 10 ml IVP 0100,0900,1700 CAS Last Admin: 12/11/19 00:43 Dose: 10 ml Documented by: Sodium Chloride (Normal Saline Flush 0.9%) 10 ml IVP PRN PRN PRN Reason: NEEDED PER PROVIDER ORDERS Last Admin: 12/11/19 04:36 Dose: 10 ml Documented by: Metformin HCl 500 mg PO QPM 10/16/19 Metoclopramide [Reglan] 10 mg PO Q6H PRN 10/16/19 Ondansetron Odt [Zofran Odt] 4 mg PO Q6H PRN 10/16/19 Pnv No.95/Ferrous Fum/Folic AC [ Vitamin Tablet] 1 each PO 10/16/19 Aspirin [Adult Aspirin Regimen] 81 mg PO DAILY 12/10/19 Ferrous Gluconate [Iron] 240 mg PO DAILY 12/10/19 metFORMIN [Glucophage] 1,000 mg PO BIDWM 12/10/19 Allergies/Adverse Reactions: Allergies Allergy/AdvReac Type Severity Reaction Status Date / Time phenol [From Chloraseptic] Allergy Anaphylaxis Verified 11/10/19 20:17 watermelon Allergy Anaphylaxis Verified 11/10/19 20:17 Anes History & Medical History - Anesthetic History Anesthesia Complications: reports: No previous complications Family history of Anesthesia Complications: Denies Family history of Malignant Hyperthermia: Denies - Medical History Cardiovascular: reports: None Pulmonary: reports: None Neuro: reports: None Endocrine/Autoimmune: reports: None Smoking Status: Former smoker Exam General: Alert, Oriented x3, Cooperative, No acute distress Dental: WNL Mouth Openin Fingerbreadth Neck Mobility: Normal Mallampati classification: I Respiratory: Lungs clear, Normal breath sounds, No respiratory distress, No accessory muscle use Cardiovascular: Regular rate, Normal S1, Normal S2, No murmurs Abdomen: Normal bowel sounds, Soft, No tenderness, No hepatospenomegaly, No masses Extremities: No clubbing, No cyanosis, No edema, Normal pulses, No tenderness/swelling Neurological: Normal gait, Normal speech, Strength at 5/5 X4 ext, Normal tone, Sensation intact, Cranial nerves 3-12 NL, Reflexes 2+ Mental/Cognitive Status: Alert/Oriented X3, Normal for patient Cognitive Status: Within normal limits Plan Anesthesia Type: Epidural Consent for Procedure(s) Verified and Reviewed: Yes Code Status: Attempt Resuscitation ASA classification: 3-Severe systemic disease Is this case an emergency?: No
--- NOTE | 2019-12-11 20:55 | PROVIDER PROGRESS NOTE ---
Subjective - Subjective Subjective: Coping well, no new sx. AVSS except for occasional mild range BPs. 3-4/80/-2/mid/soft. AROM clear and IUPC placed after verbal consent. On 15mU/min of pit Category 1 NST A/P: 24yo P0 at 37w IOL for gest HTN and GDM. Little SVE change (from 3 to 3- 4, from -3 to -2 station) on 15 of pit. AROM and IUPC placed. Unfortunately her contractions are already adequate--hopefully the AROM will help to effect change. Continue to manage pitocin to maintain MVU of 200-250--current MVUs are 210. Recheck SVE in 4h. If no change then . Discussed with pt that she is already adequate and high station which means that we have a much higher chance of doing a , patient would be fine with this. Reviewed how procedure is performed and aftercare. Risks include but not limited to bleeding, infection, trauma to local organs, anesthesia compliations, and problems with future pregnancies due to scar tissue on the uterus. All questions answered. Will sign consent if we need to go to OR. Objective - Vital Signs/Intake & Output Intake & Output: Intake & Output 12/08/19 12/09/19 12/10/19 12/11/19 23:59 23:59 23:59 23:59 Intake Total 1365.567 Output Total 1400 Balance -34.433 - Lab Results Fish Bones: 12/10/19 17:12 12/10/19 17:12 Other Labs: Lab Results x24hrs 12/11/19 12/11/19 12/11/19 Range/Units 15:15 09:48 06:03 POC Whole Bld Glucose 129 H 108 H (70 - 100) mg/dL Membranes Rupture NEGATIVE (NEGATIVE)
[2019-12-11] MEDS ORDERED: SODIUM CHLORIDE 0.9% 10 ML ONE (21:07)
--- NOTE | 2019-12-11 21:12 | ANESTHESIA PROCEDURE NOTE ---
Anesthesia Epidural Template - Patient Report Patient Reports: positive: Inadequate control (Patient reports pain with co ntractions. L1 level to painful stimuli.) - Plan Plan: positive: Other (Increase PIEB to 10ml every 45 mins) - Other Comments Other Comments: Patient reports pain with contractions across lower abdomen 10/10. L1 level. Epidural bolused with 100mcg fentanyl with 8ml PF NS. PIEB increased to 10ml every 45 mins. Patient reports improved pain 6/10.
--- NOTE | 2019-12-12 01:40 | DELIVERY NOTE ---
Delivery Note - Labor Labor: positive: Induced by oxytocin - Delivery Method Delivery Method: positive: Spontaneous vaginal delivery - Cervical Ripening Method Cervical Ripening Method: positive: Misoprostil - Presentation Presentation: positive: Vertex - Nuchal Cord Nuchal Cord: positive: Present (x1, could not be reduced, clamped x2 and cut prior to delivery of the shoulders) - Amniotic Fluid Description Amniotic Fluid Description: positive: Clear - Episiotomy Type Episiotomy Type: positive: None - Laceration Laceration: positive: Vaginal (1cm deep, not affecting the perineum, repaired with an interrupted 3-0 vicryl) - Suture Suture Type: positive: Vicryl Suture Size: positive: 3-0 - Delivery Outcome Delivery Outcome: positive: Livebirth - [place]: positive: Placed in direct skin contact with mother, Bulb syringe, Stimulated, Warmed, [place] used sex: positive: Male - Cord Cord: positive: 3 vessels - Placenta Placenta: positive: Intact - Estimated Blood Loss Estimated Blood Loss (in cc): 150 - Post Delivery Events Post Delivery Events: positive: No post delivery events - Delivery Comments (Free Text/Narrative) Delivery Comments (Free Text/Narrative): Induction of labor at 37w for gestational hypertension worsening and requiring antihypertensives + gestational diabetes A2. Induced with misoprostol followed by pitocin. Needed AROM to get her past 4cm. Pushed very effectively over only 10 minutes. Uncomplicated --watch BPs . Obese maintain SCD and start heparin at 8h.
[2019-12-12] MEDS ORDERED: ONDANSETRON ODT 4 MG TABLET TL PRN (01:41)
[2019-12-12] MEDS ORDERED: SIMETHICONE CHEW 80 MG TABLET PO PRN (01:41)
[2019-12-12] MEDS ORDERED: diphenhydrAMINE 25 MG CAPSULE PO PRN (01:41)
[2019-12-12] MEDS ORDERED: OXYTOCIN/SODIUM CHLORIDE 500 ML IV PRN (01:45)
[2019-12-12] MEDS: IBUPROFEN 600 MG TABLET PO SCH ×5 (05:15→23:21)
[2019-12-12] MEDS: DOCUSATE SODIUM 100 MG CAPSULE PO SCH ×2 (08:47→20:52)
[2019-12-12] MEDS: HEPARIN 5,000 UNIT/ML VIAL SUBQ SCH ×2 (08:47→20:52)
--- NOTE | 2019-12-12 17:27 | PROVIDER PROGRESS NOTE ---
Subjective - Subjective Subjective: S: feeling pretty good, no problems. Eat, ambulate, urinate, breastfeed OK. No heavy bleeding, mood problems, NEVAREZ, visual changes, or upper abd pain. O: AVSS, BPs normal Alert, smiling, NAD Abd soft, nt/nd Fundus NT 2cm below umbilicus Trace foot edema symmetric bilaterally. No calf tenderness or erythema or edema. A/P: 24yo P1 PPD #0 s/p induced delivery at 37w for gest HTN and gest DM. Doing well, BP normal, no PIH sx. Obese with FH of PE. SCD while in bed. Heparin 5000u sq q12h. Rubella vax needed. Rh+, s/p tdap and flu vax. Objective - Vital Signs/Intake & Output Vital Signs: Vital Signs x48h Temp Pulse Resp BP Pulse Ox 12/12/19 16:15 97.7 F 84 16 139/87 H 12/12/19 12:00 98.2 F 85 17 127/73 99 Intake & Output: Intake & Output 12/09/19 12/10/19 12/11/19 12/12/19 23:59 23:59 23:59 23:59 Intake Total 1365.567 Output Total 1800 750 Balance -434.433 -750 - Lab Results Fish Bones: 12/10/19 17:12 12/10/19 17:12 Other Labs: Lab Results x24hrs 12/11/19 Range/Units 21:00 POC Whole Bld Glucose 139 H (70 - 100) mg/dL
[2019-12-13] MEDS: IBUPROFEN 600 MG TABLET PO SCH ×4 (04:57→22:53)
[2019-12-13] MEDS: HEPARIN 5,000 UNIT/ML VIAL SUBQ SCH (08:48)
[2019-12-13] MEDS: DOCUSATE SODIUM 100 MG CAPSULE PO SCH ×2 (08:48→20:30)
--- NOTE | 2019-12-13 18:47 | PROVIDER PROGRESS NOTE ---
Subjective - Prog Note Date Prog Note Date: 12/13/19 Prog Note Time: 18:39 - Subjective Subjective: Patient was in the shower at morning rounds, sleeping at midday rounds. She has been up and ambulating, tolerating po, pain is well managed. Baby is BF well. Patient called father regarding his hx of DVT. Reports that he has a coagulation disorder but her doesn't know what it is. He is nto taking blood thinners. Objective - Vital Signs/Intake & Output Reviewed Vital Signs: Yes Vital Signs: Vital Signs x48h Temp Pulse Resp BP Pulse Ox 12/13/19 16:00 97.9 F 86 20 138/75 H 100 12/13/19 12:06 97.9 F 85 17 143/78 H 98 Intake & Output: Intake & Output 12/10/19 12/11/19 12/12/19 12/13/19 23:59 23:59 23:59 23:59 Intake Total 1365.567 Output Total 1800 750 Balance -434.433 -750 - Objective General Appearance: positive: No acute distress Respiratory: positive: No respiratory distress Cardiovascular: positive: Regular rate & rhythm Abdomen: positive: Non-tender, Other (FF below umbi) Skin: positive: Color nml Extremities: positive: Non-tender, Pedal edema Neurologic/Psychiatric: positive: Oriented x3 - Lab Results Fish Bones: 12/10/19 17:12 12/10/19 17:12 Assessment/Plan - Problem List (1) Vaginal delivery Impression: PPD#1 s/p -Under observation for HTN. BPs remain in high normal with occasional mild range pressures. Not consistently elevated to warrant anti-hypertensives -Reviewed family hx of blood clots. Sending APS and Factor V Leiden studies in am. Switched from heparin to lovenox AB pos Anticipate DC home in am
[2019-12-14] MEDS: IBUPROFEN 600 MG TABLET PO SCH (06:04)
[2019-12-14] MEDS ORDERED: ENOXAPARIN 40 MG/0.4 ML SYRINGE SUBQ SCH (09:00)
[2019-12-14] MEDS: DOCUSATE SODIUM 100 MG CAPSULE PO SCH (10:40)
--- NOTE | 2019-12-14 12:22 | PROVIDER PROGRESS NOTE ---
Subjective - Prog Note Date Prog Note Date: 12/14/19 Prog Note Time: 12:19 - Subjective Subjective: Blood pressures are trending up but remain in mild range. No PIH symptoms. Coagulopathy panel drawn this am but will not be processed for several days. Oth erwise, doing well. Up and ambulating. Tolerating po. Pain well managed. Voiding. BF going well. Objective - Vital Signs/Intake & Output Reviewed Vital Signs: Yes Vital Signs: Vital Signs x48h Temp Pulse Resp BP Pulse Ox 12/14/19 08:00 97.9 F 83 17 143/72 H 100 Intake & Output: Intake & Output 12/11/19 12/12/19 12/13/19 12/14/19 23:59 23:59 23:59 23:59 Intake Total 1365.567 465.855 6964 Output Total 1800 750 Balance -434.433 -181.934 0202 - Objective General Appearance: positive: No acute distress Respiratory: positive: No respiratory distress Cardiovascular: positive: Other (RR) Abdomen: positive: Non-tender, Other (FF below umbi) Skin: positive: Color nml Extremities: positive: Non-tender, Pedal edema Neurologic/Psychiatric: positive: Oriented x3 - Lab Results Fish Bones: 12/10/19 17:12 12/10/19 17:12 Assessment/Plan - Problem List (1) Vaginal delivery Impression: PPD#2 s/p (IOL for GDM and GHTN) Doing well Starting on low dose labetalol 100 mg po bid Reviewed warning signs for PIH had dose of lovenox. Will not continue after review of family hx and guildelines FVL and APS labs pending AB pos Will FU in clinic in one week Routine DC instructions given DC to home
--- NOTE | 2019-12-14 12:24 | Discharge Plan ---
Discharge Plan Problem Reviewed?: Yes Disposition: Home, Self Care Condition: Critical Prescriptions: Docusate Sodium 100 - 200 mg PO BID PRN #60 capsule PRN Reason: Constipation Ibuprofen [Motrin] 600 mg PO Q6H PRN #90 tab PRN Reason: Pain Labetalol [Trandate] 100 mg PO BID #60 tablet Acetaminophen [Tylenol Extra Strength] 500 - 1,000 mg PO Q8H PRN #90 tablet PRN Reason: Pain Diet: Regular Activity Restrictions: Additional Comments (Nothing in the vagina for 6 weeks: No intercourse, tampons, douching Call for: -Fever greater than 100.5 - Pain that does not improve with pain medication -Heavy bleeding in which you are soaking a pad an hour for 2 hours in a row) Shower Restrictions: No (No tub baths or hot tubs for 4 weeks) Driving Restrictions: No Health Concerns: Called for headache that does not improve with pain medications, black spots or sparkly lights in your field of vision, or pain in the right upper part of your belly. Additional Instructions or Follow Up instructions: Follow-up in one week for BP check Will need 6 week glucose tolerance test No Smoking: If you smoke, Please STOP! Call for help. Follow-up with: Loren Enrique MD [Provider Admit Priv/Credential] -
--- NOTE | 2019-12-14 12:28 | DISCHARGE SUMMARY ---
Discharge Summary Discharge Date: 12/14/19 Discharging Provider: Iva Condition at Discharge: Critical Discharge Disposition: 01 Home, Self Care Discharge Facility Name: [facility] - DIAGNOSES Admission Diagnoses: IUP at 37+0 wga A2 GDM Gestational HTN BMI 46 Discharge Diagnoses with Status of Each Condition: Same and delivery of term gestation - [facility] History of Present Illness: 24yo G1 at 37w0d by LMP c/w 11w US admitted on 12/10/2019 for IOL for worsening gestational hypertension requiring nifedipine for occasional severe range BPs. P:C had increased from 0 to 0.2. Gestational diabetes: on small amount of insulin (8U NPH at hs). Initial SVE was 1-2/75/-2/soft/posterior. Lynch score 6. Fetus: male, vertex, 8.75# EFW, normal anatomy scan and quad screen. Last EFW was 44%ile on 11/24 with EFW 2512g. VTE prophylaxis: pt is obese and her father had a PE. Will do SCD PRN epidural and will add heparin to start . - HOSPITAL COURSE Hospital Course: Patient was admitted at 37+0 wga in the setting of worsening gestational hypertension, and A2 GDM requiring 8 units of insulin nightly. Initial SVE was 1-2/75/-2/soft/posterior. Induced with misoprostol followed by pitocin. Needed AROM to get her past 4cm. Pushed very effectively over only 10 minutes. Uncomplicated . Epidural for pain management. GBS negative; antibiotics not indication. Patient has BMI 46 and father with historyof DVT. Received heparin on PPD#1, converted to Lovenox. Patient does not have history of VTE. Called father to review history. He is not on anticoagulation. Believes he has a clotting disorder but is unsure of type. Factor V Leiden and Antiphospholipid Syndrome. Received MMR prior to discharge. Blood pressures showed mild upward trend to mild range on PPD#2. Started on labetalol 100 mg po bid. Reviewed R/B/A to outpatient anticoagulation in the absence of VTE history. Will hold lovenox until coagulopathy panel returns. Reviewed warning signs. Discharged to home on PPD#2. - ALLERGIES Allergies/Adverse Reactions: Allergies Allergy/AdvReac Type Severity Reaction Status Date / Time phenol [From Chloraseptic] Allergy Anaphylaxis Verified 11/10/19 20:17 watermelon Allergy Anaphylaxis Verified 11/10/19 20:17 - MEDICATIONS Home Medications: Ambulatory Orders Medication Instructions Recorded Confirmed predniSONE [Deltasone] 40 mg PO DAILY 4 Days tablet 02/04/16 Metformin HCl 500 mg PO QPM 10/16/19 10/16/19 Metoclopramide [Reglan] 10 mg PO Q6H PRN 10/16/19 10/16/19 Ondansetron Odt [Zofran Odt] 4 mg PO Q6H PRN 10/16/19 10/16/19 Pnv No.95/Ferrous Fum/Folic AC 1 each PO 10/16/19 [ Vitamin Tablet] Aspirin [Adult Aspirin Regimen] 81 mg PO DAILY 12/10/19 12/10/19 Ferrous Gluconate [Iron] 240 mg PO DAILY 12/10/19 12/10/19 metFORMIN [Glucophage] 1,000 mg PO BIDWM 12/10/19 12/10/19 Acetaminophen [Tylenol Extra 500 - 1,000 mg PO Q8H PRN #90 12/14/19 Strength] tablet Docusate Sodium 100 - 200 mg PO BID PRN #60 capsule 12/14/19 Ibuprofen [Motrin] 600 mg PO Q6H PRN #90 tab 12/14/19 Labetalol [Trandate] 100 mg PO BID #60 tablet 12/14/19 - LABS Result Diagrams: 12/10/19 17:12 12/10/19 17:12 - FOLLOW UP Follow Up: [address] Enrique - TIME SPENT Time Spent in Discharge (Minutes): 30
[2019-12-14] MEDS ORDERED: MEASLES,MUMPS & RUBELLA VACC 0.5 ML VIAL SUBQ ONE (12:31)
[2019-12-14] MEDS ORDERED: LABETALOL 100 MG TABLET PO SCH (13:00)
[2019-12-14 13:39] VITALS: BP 137/84
--- NOTE | 2019-12-14 13:41 | Labor Flowsheet ---
Labor Flowsheet Datetime Report Generated by CPN: 12/14/2019 13:41 Datetime: 12/14/2019 12:33 VITAL SIGNS NBP Sys/Viry/Mean (mmHg): 137 : 84 : 96 Pulse: 83 LaborFlag: Labor Datetime: 12/13/2019 07:35 SpO2 (%): 99 Datetime: 12/12/2019 01:29 Stage 2 Comments: Spontaneous placenta delivered, intact, routine discard Datetime: 12/12/2019 01:20 UTERINE ACTIVITY Monitor Mode: Internal Frequency (min): 1.5-2 Quality: Strong Duration (sec): 90-110 Pattern: Normal: <= 5 Contractions in 10 Minutes Resting Tone (Palpate): Relaxed Resting Tone IUP (mmHg): 15-20 Intensity IUP (mmHg): 55 [place] Units (mmHg): 110 ASSESSMENT A Monitor Mode: External US FHR Baseline Rate : 120 Variability: Moderate 6-25 bpm Accelerations: 15X15 Decelerations: Variable Category: Category II Comments: Pushing started @ 0112. Effective pushing, minimal coaching, viable male born @ 0120. Tig ht nuchal x1, clamped and cut. Datetime: 12/12/2019 01:12 STAGE 2 Pushing: Coached on Pushing; Urge to Push Pushing Position: Pushing with Contractions; Pushing Lithotomy Pushing Progress: Descent with Pushing; Pushing Effectively with Contractions Datetime: 12/12/2019 01:00 Pitocin Checklist: At Least 1 Acceleration of 15 bpm x 15 Seconds in 30 Minutes or Adequate Variabi lity; No More than 1 Late Deceleration Occurred in Past 30 Minutes; No More than 2 Variable Decelerat ions > 60 Seconds in Duration and decreasing >60 bpm in 30 minutes; Uterus Palpates Soft between Cont ractions Contraction Comments: MVUs 80-175 Datetime: 12/12/2019 00:43 COMMUNICATION Communication: Call/Page Placed to Provider Provider Notified (Name): Ayah Communication Comments: Pt feels pushy. Baby +2, maybe still some cervix left Datetime: 12/12/2019 00:30 Oxygen Method: Room Air Datetime: 12/11/2019 23:48 Patient Position/Activity: Right Lateral Patient Care Comments: peanut ball in between legs Datetime: 12/11/2019 23:36 Notification Reason: Labor Status Datetime: 12/11/2019 22:31 Monitor Interventions for FHR: Ultrasound Adjusted Datetime: 12/11/2019 22:19 MEDICATIONS Pitocin (milliunits): Increased to @ 18 Datetime: 12/11/2019 22:16 Temperature (C): 36.7 Datetime: 12/11/2019 20:27 Monitor Interventions for UA: IUPC Inserted Datetime: 12/11/2019 20:26 Membrane Status: Ruptured Membranes Rupture Method: Artificial Amniotic Fluid Color: Clear Amniotic Fluid Amount: Small Amniotic Fluid Odor: Normal Membrane Comments: some blood present Datetime: 12/11/2019 20:25 Exam by: Ayah Vaginal Exam Comments: "No change" per MD Datetime: 12/11/2019 19:44 VAGINAL EXAM Dilatation (cm): 3.5 Effacement (%): 80 Station: -2 Cervix, Consistency: Soft Cervix, Position: Midposition Datetime: 12/11/2019 19:02 FHR Baseline Changes: No Baseline Change Datetime: 12/11/2019 18:41 Pain Coping: Sleeping Anesthesia Level Check: T10- Umbilicus Datetime: 12/11/2019 17:30 Pain Presence: None/Denies Datetime: 12/11/2019 16:47 I/O Interventions: Cuello Cath Inserted Datetime: 12/11/2019 16:25 Medication Comments: LR bolus 200ml started Datetime: 12/11/2019 16:08 ANESTHESIA Epidural Procedure: Test Dose Datetime: 12/11/2019 15:45 PAIN Pain Scale: 9 Pain Goal: 8 Anesthesia Comments: anesthesia here for epidural placement Datetime: 12/11/2019 15:33 Labor/Induction: Pushing Methods Pain Management: Epidural; PRN Medications; Pain Scale/Goals Datetime: 12/11/2019 14:24 Nitrazine: Positive Datetime: 12/11/2019 14:02 Pain Type: Cramping Pain Location: Abdomen; Back Datetime: 12/11/2019 12:34 Analgesics/Sedatives: Fentanyl (mcg) @ 100 Datetime: 12/11/2019 12:25 Vaginal Bleeding: None Datetime: 12/11/2019 11:42 Pain Assessment Comments: declined medication intervention, will let nurse know when she's ready fo r meds Datetime: 12/11/2019 11:06 Vital Sign Comments: manual bp taken due to pt.being in jacuzzi Datetime: 12/11/2019 09:00 TEACHING Instructional Method: Verbal; Patient Instructed; Family/Support Person Instructed; Verbalized Unde rstanding Plan of Care: Plan of Care Discussed Unit Routine: Infant Security; Monitoring; Medications Datetime: 12/11/2019 04:44 PATIENT CARE IV/Blood Work: IV Bolus Started Datetime: 12/11/2019 04:12 Pain Relief Measures: Comfort Measures Comfort Measures: Breathing/Relaxation Datetime: 12/11/2019 00:50 Respirations: 16 Datetime: 12/10/2019 19:26 MATERNAL ASSESSMENT Level of Consciousness: Alert Headache: Denies Breath Sounds, Left: Clear and Equal Breath Sounds, Right: Clear and Equal Nausea/Vomiting: Denies RUQ Epigastric Pain: Denies Datetime: 12/10/2019 19:22 Temperature Route: Oral Datetime: 12/10/2019 19:05 Bedside Blood Glucose: 164
[2020-01-02 15:16] LABS: B2 GLYCOPROTEIN I IGG AB <9
[2020-01-02 15:17] LABS: B2 GLYCOPROTEIN I IGA AB <9; B2 GLYCOPROTEIN I IGM AB <9
== END 2019-12-14 13:30 | disposition home or self-care (01) | DRG 806 ==
LOC: WFO 16:25 → FBP 16:28 → WFO 16:39 → FBP 16:39
PROVIDERS: ADMIT Obstetrics & Gynecology; ATTEND Obstetrics & Gynecology
PROC: 10E0XZZ Delivery of Products of Conception, External Approach (ICD-10-PCS; principal; 2019-12-12)
PROC: 10907ZC Drainage of Amniotic Fluid, Therapeutic from Products of Conception, Via Natural or Artificial Opening (ICD-10-PCS; 2019-12-12)
PROC: 0UQGXZZ Repair Vagina, External Approach (ICD-10-PCS; 2019-12-12)
DX: O24.424 Gestational diabetes mellitus in childbirth, insulin controlled (principal); O71.4 Obstetric high vaginal laceration alone; Z37.0 Single live birth; O13.4 Gestational [pregnancy-induced] hypertension without significant proteinuria, complicating childbirth; O69.1XX0 Labor and delivery complicated by cord around neck, with compression, not applicable or unspecified; O99.214 Obesity complicating childbirth; E66.01 Morbid (severe) obesity due to excess calories; Z3A.37 37 weeks gestation of pregnancy; Z82.49 Family history of ischemic heart disease and other diseases of the circulatory system; Z79.4 Long term (current) use of insulin; Z79.82 Long term (current) use of aspirin; Z87.891 Personal history of nicotine dependence
CPT/HCPCS: 36415; 80053; 81241; 82570; 84112; 84156; 85025; 85613; 85730; 86146; 86147; 86850; 86900; 86901; A9270; J1650; J1815; J7120

== ENCOUNTER 2020-01-24 08:35 | Outpatient (CLI) | payer MEDICAID | END 2020-01-24 08:36 | disposition home or self-care (01) | LOC: LAB 08:35 | PROVIDERS: ATTEND Obstetrics & Gynecology | DX: Z39.2 Encounter for routine postpartum follow-up (principal); O24.439 Gestational diabetes mellitus in the puerperium, unspecified control | CPT/HCPCS: 36415; 82951 ==

== ENCOUNTER 2021-08-24 09:14 | Outpatient (CLI) | payer MEDICAID ==
[2021-08-24 10:30] LABS: THYROID STIMULATING HORMONE 2.44 uIU/mL (0.34-5.60)
[2021-08-24 10:32] LABS: FREE T4 (FREE THYROXINE) 0.8 ng/dL (0.58-1.64)
[2021-08-24 12:43] LABS: ESTIMATED AVERAGE GLUCOSE 157 mg/dL (70-100); HEMOGLOBIN A1c% 7.1 % (4.27-6.07)
== END 2021-08-24 09:15 | disposition home or self-care (01) ==
LOC: LAB 09:14
PROVIDERS: ATTEND Nurse Practitioner Obstetrics & Gynecology
DX: E28.2 Polycystic ovarian syndrome (principal); N92.6 Irregular menstruation, unspecified
CPT/HCPCS: 36415; 82950; 82951; 83036; 84439; 84443

== ENCOUNTER 2021-10-06 14:52 | Outpatient (CLI) | payer MEDICAID | END 2021-10-06 14:53 | disposition home or self-care (01) | LOC: LAB 14:52 | PROVIDERS: ATTEND Nurse Practitioner Obstetrics & Gynecology | DX: Z31.41 Encounter for fertility testing (principal) | CPT/HCPCS: 36415; 84144 ==

== ENCOUNTER 2021-11-03 07:36 | Emergency (ER) | payer MEDICAID ==
--- NOTE | 2021-11-03 08:19 | ED Physician Documentation ---
PD HPI HEADACHE - Stated complaint Stated Complaint: HEAD PX/VOMITING - Chief complaint Chief Complaint: Neuro - History obtained from History obtained from: Patient - History of Present Illness Timing - onset: Last night Timing - onset during: Sleep Timing - duration: Hours Timing - details: Gradual onset (onset and worsening of migraine type headache that increased to worst one she has had but similar in character to prior migraines.), Still present Worst headache ever?: Worst headache ever? (yes but similar in character to prior migraines.) Location: Right Quality: Throbbing, Stabbing. No: Thunderclap Associated symptoms: Nausea, Vomiting, Other (light sensitive). No: Fever, Stiff neck, Weakness, Vision changes Worsened by: Light, Noise Contributing factors: No: Hypertension, Recent illness, Trauma Similar symptoms before: Diagnosis (migraines headaches infrequently) Recently seen: Not recently seen Review of Systems Constitutional: denies: Fever, Chills Nose: denies: Rhinorrhea / runny nose, Congestion, Sinus pressure / pain Throat: denies: Sore throat Respiratory: denies: Cough GI: reports: Nausea, Vomiting. denies: Diarrhea Skin: denies: Rash Neurologic: denies: Focal weakness, Numbness, Altered mental status, Head injury, LOC PD PAST MEDICAL HISTORY - Past Medical History Cardiovascular: None Respiratory: None Neuro: Migraines Endocrine/Autoimmune: None - Past Surgical History Past Surgical History: No - Present Medications Home Medications: Ambulatory Orders Medication Instructions Recorded Confirmed Ibuprofen [Motrin] 600 mg PO TID PRN #25 tab 11/03/21 Ondansetron Odt [Zofran] 4 mg TL Q6H PRN #10 tablet 11/03/21 SUMAtriptan [Imitrex] 25 mg PO Q6H PRN #9 tablet 11/03/21 metFORMIN [Glucophage] 500 mg PO BID 11/03/21 11/03/21 - Allergies Allergies/Adverse Reactions: Allergies Allergy/AdvReac Type Severity Reaction Status Date / Time phenol [From Chloraseptic] Allergy Anaphylaxis Verified 11/03/21 07:48 watermelon Allergy Anaphylaxis Verified 11/03/21 07:48 - Social History Does the pt smoke?: No Smoking Status: Never smoker Does the pt drink ETOH?: No Does the pt have substance abuse?: No - Immunizations Immunizations are current?: Yes PD ED PE NORMAL - Vitals Vital signs reviewed: Yes - General General: Alert and oriented X 3, Well developed/nourished - HEENT HEENT: PERRL (light sensitive), EOMI, Ears normal, Moist mucous membranes, Pharynx benign - Neck Neck: Supple, no meningeal sign, No adenopathy - Cardiac Cardiac: RRR, No murmur - Respiratory Respiratory: Clear bilaterally - Derm Derm: Normal color, Warm and dry - Extremities Extremities: Normal ROM s pain - Neuro Neuro: Alert and oriented X 3, 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 ), considered differential (seems like migraine. Is the highest severity one she has had but same character and onset. ), d/w patient Departure - Departure Disposition: 01 Home, Self Care Clinical Impression: Migraine headache Qualifiers: Migraine type: without aura Status migrainosus presence: with status migrainosus Intractability: not intractable Qualified Code(s): G43.001 - Migraine without aura, not intractable, with status migrainosus Condition: Stable Record reviewed to determine appropriate education?: Yes Instructions: ED Headache Migraine Follow-Up: Bibi Zhong ARNP [Primary Care Provider] - Prescriptions: SUMAtriptan [Imitrex] 25 mg PO Q6H PRN #9 tablet PRN Reason: Migraine Ibuprofen [Motrin] 600 mg PO TID PRN #25 tab PRN Reason: Pain Ondansetron Odt [Zofran] 4 mg TL Q6H PRN #10 tablet PRN Reason: Nausea / Vomiting Comments: Your headache sounds like migraine headaches. It got better with migraine type medication approach today in the ER. For subsequent headaches you can try the new prescription sumatriptan (Imitrex) which is a migraine specific medication. It can be combined with ondansetron if needed for nausea and ibuprofen as well. See if this works well for your migraine type headaches. Follow-up with your new primary care as planned in November for further evaluation and the continuation of this if it works well for you or trial of different medication if it did not. I sent your prescriptions to [facility] pharmacy. Discharge Date/Time: 11/03/21 10:22
[2021-11-03] MEDS ORDERED: SODIUM CHLORIDE 0.9% 1,000 ML IV STA (08:46)
[2021-11-03] MEDS ORDERED: KETOROLAC 15 MG/ML VIAL IVP STA (08:46)
[2021-11-03] MEDS ORDERED: diphenhydrAMINE INJ 50 MG/ML VIAL IVP STA (08:47)
[2021-11-03] MEDS ORDERED: DEXAMETHASONE 10 MG/ML VIAL IVP STA (08:47)
[2021-11-03] MEDS ORDERED: PROCHLORPERAZINE 10 MG/2 ML VIAL IVP STA (08:47)
[2021-11-03 09:56] VITALS: BP 101/61
== END 2021-11-03 10:22 | disposition home or self-care (01) ==
LOC: ED 07:36
DX: G43.001 Migraine without aura, not intractable, with status migrainosus (principal)
CPT/HCPCS: 96374; 96375; 99282; 99285; J1200

== ENCOUNTER 2021-11-17 11:08 | Outpatient (CLI) | payer MEDICAID ==
[2021-11-17 18:02] LABS: BASOPHILS # (AUTO) 0.1 10^3/uL (0.0-0.1); BASOPHILS % (AUTO) 0.8 %; EOSINOPHILS # (AUTO) 0.1 10^3/uL (0.0-0.7); EOSINOPHILS % (AUTO) 1.5 %; HCT - HEMATOCRIT 39.9 % (37.0-47.0); HGB - HEMOGLOBIN 12.7 g/dL (12.0-16.0); LYMPHOCYTES # (AUTO) 2.4 10^3/uL (1.5-3.5); LYMPHOCYTES % (AUTO) 30.9 %; MEAN CORPUSCULAR HEMOGLOBIN 25.6 pg (27.0-31.0); MEAN CORPUSCULAR HGB CONC 31.8 g/dL (32.0-36.0); MEAN CORPUSCULAR VOLUME 80.4 fL (81.0-99.0); MEAN PLATELET VOLUME 9.7 fL (7.9-10.8); MONOCYTES # (AUTO) 0.5 10^3/uL (0.0-1.0); MONOCYTES % (AUTO) 6.4 %; NEUTROPHILS # (AUTO) 4.7 10^3/uL (1.5-6.6); NEUTROPHILS % (AUTO) 60.1 %; PLT - PLATELET COUNT 308 10^3/uL (130-450); RED BLOOD COUNT 4.96 10^6/uL (4.20-5.40); RED CELL DISTRIBUTION WIDTH 13.7 % (12.0-15.0); WHITE BLOOD COUNT 7.9 x10^3/uL (4.8-10.8)
[2021-11-17 18:40] LABS: CREATININE,URINE 207.2 mg/dL; MICROALBUM/CREATININE RATIO,UR 3.4 ug/mg (<30.0); MICROALBUMIN,URINE 0.7 mg/dL (0-300.0)
[2021-11-17 22:36] LABS: ESTIMATED AVERAGE GLUCOSE 137 mg/dL (70-100); HEMOGLOBIN A1c% 6.4 % (4.27-6.07)
== END 2021-11-17 11:09 | disposition home or self-care (01) ==
LOC: LAB.N 11:08
PROVIDERS: ATTEND Nurse Practitioner
DX: E11.9 Type 2 diabetes mellitus without complications (principal)
CPT/HCPCS: 36415; 80053; 80061; 82043; 82570; 83036; 83721; 85025

== ENCOUNTER 2021-11-18 07:10 | Outpatient (CLI) | payer MEDICAID ==
[2021-11-18 07:41] LABS: ALBUMIN 3.8 g/dL (3.2-5.5); ALBUMIN/GLOBULIN RATIO 0.9 (1.0-2.2); ALKALINE PHOSPHATASE 58 IU/L (42-121); ALT ALANINE AMINOTRANSFERASE 59 IU/L (10-60); AST ASPARTATE AMINOTRANSFERASE 28 IU/L (10-42); BILIRUBIN,TOTAL 0.2 mg/dL (0.2-1.0); BUN - BLOOD UREA NITROGEN 13 mg/dL (6-20); CALCIUM 9.2 mg/dL (8.5-10.3); CARBON DIOXIDE - CO2 27 mmol/L (21-32); CHLORIDE 106 mmol/L (101-111); CHOL/HDL RATIO 3.7 (<4.4); CHOLESTEROL 147 mg/dL; CREATININE 0.8 mg/dL (0.4-1.0); GFR - MDRD 88 (>89); GLUCOSE 123 mg/dL (70-100); HDL CHOLESTEROL 40 mg/dL; LDL CHOLESTEROL,CALCULATED 97 mg/dL; LDL/HDL RATIO 2.4 (<4.4); POTASSIUM 4.2 mmol/L (3.5-5.0); SODIUM 142 mmol/L (135-145); TOTAL PROTEIN 7.9 g/dL (6.7-8.2); TRIGLYCERIDES 49 mg/dL; VLDL CHOLESTEROL 10 mg/dL
== END 2021-11-18 07:11 | disposition home or self-care (01) ==
LOC: LAB 07:10
PROVIDERS: ATTEND Nurse Practitioner
DX: E11.9 Type 2 diabetes mellitus without complications (principal); Z13.220 Encounter for screening for lipoid disorders
CPT/HCPCS: 36415; 80053; 80061; 83721

== ENCOUNTER 2021-11-24 17:31 | Outpatient (CLI) | payer MEDICAID | END 2021-11-24 17:32 | disposition EMS.NT | LOC: EMS 17:31 | DX: U07.1 COVID-19 (principal) ==

== ENCOUNTER 2021-12-15 10:03 | Outpatient (CLI) | payer MEDICAID | END 2021-12-15 10:04 | disposition home or self-care (01) | LOC: LAB 10:03 | PROVIDERS: ATTEND Nurse Practitioner Obstetrics & Gynecology | DX: O20.0 Threatened abortion (principal) | CPT/HCPCS: 36415; 84702 ==

== ENCOUNTER 2022-04-18 07:28 | Outpatient (CLI) | payer MEDICAID ==
[2022-04-18 07:38] LABS: BASOPHILS # (AUTO) 0.1 10^3/uL (0.0-0.1); BASOPHILS % (AUTO) 0.8 %; EOSINOPHILS # (AUTO) 0.1 10^3/uL (0.0-0.7); EOSINOPHILS % (AUTO) 1.7 %; HCT - HEMATOCRIT 39.2 % (37.0-47.0); HGB - HEMOGLOBIN 12.6 g/dL (12.0-16.0); LYMPHOCYTES # (AUTO) 1.9 10^3/uL (1.5-3.5); LYMPHOCYTES % (AUTO) 28.8 %; MEAN CORPUSCULAR HEMOGLOBIN 26.2 pg (27.0-31.0); MEAN CORPUSCULAR HGB CONC 32.1 g/dL (32.0-36.0); MEAN CORPUSCULAR VOLUME 81.5 fL (81.0-99.0); MEAN PLATELET VOLUME 8.7 fL (7.9-10.8); MONOCYTES # (AUTO) 0.5 10^3/uL (0.0-1.0); MONOCYTES % (AUTO) 8.1 %; NEUTROPHILS # (AUTO) 3.9 10^3/uL (1.5-6.6); NEUTROPHILS % (AUTO) 60.3 %; PLT - PLATELET COUNT 264 10^3/uL (130-450); RED BLOOD COUNT 4.81 10^6/uL (4.20-5.40); RED CELL DISTRIBUTION WIDTH 13.4 % (12.0-15.0); WHITE BLOOD COUNT 6.4 x10^3/uL (4.8-10.8)
[2022-04-18 07:50] LABS: BILIRUBIN,TOTAL 0.4 mg/dL (0.2-1.0); CALCIUM 9.1 mg/dL (8.5-10.3); CREATININE 0.8 mg/dL (0.4-1.0); POTASSIUM 3.9 mmol/L (3.5-5.0); TOTAL PROTEIN 8.1 g/dL (6.7-8.2)
[2022-04-18 07:53] LABS: CREATININE,URINE 223.9 mg/dL; MICROALBUM/CREATININE RATIO,UR 3.6 ug/mg (<30.0); MICROALBUMIN,URINE 0.8 mg/dL (0-300.0)
[2022-04-18 09:48] LABS: ESTIMATED AVERAGE GLUCOSE 143 mg/dL (70-100); HEMOGLOBIN A1c% 6.6 % (4.27-6.07)
== END 2022-04-18 23:59 | disposition home or self-care (01) ==
LOC: LAB 07:28
PROVIDERS: ATTEND Nurse Practitioner
DX: E11.9 Type 2 diabetes mellitus without complications (principal)
CPT/HCPCS: 36415; 80053; 82043; 82570; 83036; 85025

== ENCOUNTER 2022-04-30 13:52 | Outpatient (CLI) | payer MEDICAID | END 2022-04-30 13:53 | disposition home or self-care (01) | LOC: LAB 13:52 | PROVIDERS: ATTEND Nurse Practitioner Obstetrics & Gynecology | DX: O20.0 Threatened abortion (principal) | CPT/HCPCS: 36415; 84702 ==

== ENCOUNTER 2022-05-17 22:06 | Outpatient (CLI) | payer MEDICAID ==
--- NOTE | 2022-05-18 09:54 | Ultrasound Report ---
PROCEDURE: Pelvic w/Transvaginal INDICATIONS: AMENORRHEA TECHNIQUE: Real-time scanning was performed of the pelvic organs, with image documentation. Additional endovagi nal scanning was necessary due to incomplete visualization of the adnexal and endometrial structures by transabdominal scanning. COMPARISON: None. FINDINGS: Uterus: Uterus is anteverted and normal in size at 7.7 x 3.8 x 5.5 cm. The myometrium is homogeneou s. The endometrium measures 5.6 mm in combined thickness. Ovaries: The right ovary measures 3.6 x 2.6 x 3.9 cm. The left ovary measures 4.1 x 1.8 x 2 point c m. The ovaries have a normal sonographic appearance. Less than 12 follicles can be seen in each ova ry. No adnexal masses are seen. Other: No pathologic free abdominal or pelvic fluid. IMPRESSION: Normal pelvic ultrasound. Reviewed by: Danny Bauer on 05/18/2022 9:53 AM PDT Approved by: Danny Bauer on 05/18/2022 9:53 AM PDT Station ID: [id number]
== END 2022-05-17 22:07 | disposition home or self-care (01) ==
LOC: DI 22:06
PROVIDERS: ATTEND Nurse Practitioner Obstetrics & Gynecology
DX: N91.2 Amenorrhea, unspecified (principal)

== ENCOUNTER 2022-07-20 07:02 | Outpatient (CLI) | payer MEDICAID ==
[2022-07-20 07:35] LABS: CHOL/HDL RATIO 3.4 (<4.4); CHOLESTEROL 156 mg/dL; HDL CHOLESTEROL 46 mg/dL; LDL CHOLESTEROL,CALCULATED 97 mg/dL; LDL/HDL RATIO 2.1 (<4.4); TRIGLYCERIDES 64 mg/dL; VLDL CHOLESTEROL 13 mg/dL
[2022-07-20 07:47] LABS: THYROID STIMULATING HORMONE 2.95 uIU/mL (0.34-5.60)
[2022-07-21 15:23] LABS: ESTIMATED AVERAGE GLUCOSE 137 mg/dL (70-100); HEMOGLOBIN A1c% 6.4 % (4.27-6.07)
== END 2022-07-20 07:03 | disposition home or self-care (01) ==
LOC: LAB 07:02
PROVIDERS: ATTEND Nurse Practitioner
DX: E78.5 Hyperlipidemia, unspecified (principal); E11.9 Type 2 diabetes mellitus without complications; E66.9 Obesity, unspecified; R53.83 Other fatigue
CPT/HCPCS: 36415; 80061; 83036; 83721; 84443

== ENCOUNTER 2022-07-31 06:18 | Outpatient (CLI) | payer MEDICAID ==
[2022-07-31 07:26] LABS: THYROID STIMULATING HORMONE 3.12 uIU/mL (0.34-5.60)
[2022-07-31 07:32] LABS: PROLACTIN 14.29 ng/mL
[2022-07-31 07:53] LABS: FOLLICLE STIMULATING HORMONE 4.15 mIU/mL
[2022-07-31 07:54] LABS: LUTEINIZING HORMONE 2.04 mIU/mL
[2022-08-01 07:07] LABS: ESTRADIOL 38.5 pg/mL (.); PROGESTERONE 0.2 ng/mL (.); SEX HORM BINDING GLOB SERUM 18.4 nmol/L (24.6-122.0)
[2022-08-02 15:08] LABS: FREE TESTOSTERONE(DIRECT) 5.3 pg/mL (0.0-4.2)
== END 2022-07-31 06:19 | disposition home or self-care (01) ==
LOC: LAB 06:18
PROVIDERS: ATTEND Nurse Practitioner
DX: N92.6 Irregular menstruation, unspecified (principal)
CPT/HCPCS: 36415; 82397; 82626; 82670; 83001; 83002; 83498; 84144; 84146; 84270; 84402; 84403; 84443

== ENCOUNTER 2022-08-16 08:00 | Outpatient (CLI) | payer MEDICAID ==
[2022-08-16 21:12] LABS: BACTERIAL VAGINOSIS DNA NEGATIVE (NEGATIVE)
[2022-08-16 21:13] LABS: CANDIDA GLABRATA DNA NEGATIVE (NEGATIVE); CANDIDA GROUP DNA NEGATIVE (NEGATIVE); CANDIDA KRUSEI DNA NEGATIVE (NEGATIVE); TRICHOMONAS VAGINALIS DNA NEGATIVE (NEGATIVE)
[2022-08-16 21:15] LABS: CHLAMYDIA TRACHOMATIS DNA NEGATIVE (NEGATIVE); NEISSERIA GONORRHOEAE DNA NEGATIVE (NEGATIVE)
== END 2022-08-16 23:59 | disposition home or self-care (01) ==
LOC: LAB.WC 08:00
PROVIDERS: ATTEND Nurse Practitioner
DX: N92.6 Irregular menstruation, unspecified (principal); Z11.3 Encounter for screening for infections with a predominantly sexual mode of transmission
CPT/HCPCS: 81514; 87491; 87591; 87661

== ENCOUNTER 2022-08-19 08:40 | Outpatient (CLI) | payer MEDICAID | END 2022-08-19 08:41 | disposition home or self-care (01) | LOC: LAB 08:40 | PROVIDERS: ATTEND Nurse Practitioner | DX: N92.6 Irregular menstruation, unspecified (principal) | CPT/HCPCS: 36415; 84702 ==

== ENCOUNTER 2022-08-26 09:42 | Outpatient (CLI) | payer MEDICAID | END 2022-08-26 09:43 | disposition home or self-care (01) | LOC: LAB 09:42 | PROVIDERS: ATTEND Nurse Practitioner | DX: N92.6 Irregular menstruation, unspecified (principal) | CPT/HCPCS: 36415; 84702 ==

== ENCOUNTER 2022-08-30 15:56 | Outpatient (CLI) | payer MEDICAID | END 2022-08-30 15:57 | disposition home or self-care (01) | LOC: LAB 15:56 | PROVIDERS: ATTEND Nurse Practitioner | DX: N92.6 Irregular menstruation, unspecified (principal) | CPT/HCPCS: 36415; 84702 ==

== ENCOUNTER 2022-09-11 21:03 | Outpatient (CLI) | payer MEDICAID ==
--- NOTE | 2022-09-11 22:20 | XRAY Report ---
PROCEDURE: Lumbar Spine 2 View INDICATIONS: LOW BACK PAIN TECHNIQUE: 2 views of the lumbar spine were acquired. COMPARISON: None. FINDINGS: Bones: 5 [id number] vertebrae are present. There is trace multilevel retrolisthesis. There is minimal rightward curvature. Minimal right foraminal narrowing. No vertebral body compression fractur es. No suspicious bony lesions. Soft tissues: Overlying bowel gas pattern is normal. No suspicious soft tissue calcifications. IMPRESSION: Minimal rightward curvature as well as L5-S1 foraminal narrowing. Reviewed by: Tierra Campoverde MD on 09/11/2022 10:19 PM PDT Approved by: Tierra Campoverde MD on 09/11/2022 10:19 PM PDT Station ID: [id number]
== END 2022-09-11 21:04 | disposition home or self-care (01) ==
LOC: DI 21:03
PROVIDERS: ATTEND Nurse Practitioner
DX: M48.07 Spinal stenosis, lumbosacral region (principal); M43.9 Deforming dorsopathy, unspecified

== ENCOUNTER 2022-10-14 16:04 | Outpatient (CLI) | payer MEDICAID | END 2022-10-14 16:05 | disposition home or self-care (01) | LOC: LAB 16:04 | PROVIDERS: ATTEND Nurse Practitioner | DX: N92.6 Irregular menstruation, unspecified (principal) | CPT/HCPCS: 36415; 84702 ==

== ENCOUNTER 2022-12-15 14:35 | Outpatient (CLI) | payer MEDICAID | END 2022-12-15 14:36 | disposition home or self-care (01) | LOC: LAB 14:35 | PROVIDERS: ATTEND Nurse Practitioner | DX: N92.6 Irregular menstruation, unspecified (principal) | CPT/HCPCS: 36415; 84702 ==

== ENCOUNTER 2023-01-24 09:41 | Outpatient (CLI) | payer MEDICAID ==
[2023-01-24 12:06] LABS: ESTIMATED AVERAGE GLUCOSE 123 mg/dL (70-100); HEMOGLOBIN A1c% 5.9 % (4.27-6.07)
== END 2023-01-24 09:42 | disposition home or self-care (01) ==
LOC: LAB 09:41
PROVIDERS: ATTEND Nurse Practitioner
DX: E11.9 Type 2 diabetes mellitus without complications (principal)
CPT/HCPCS: 36415; 83036

== ENCOUNTER 2023-03-19 09:15 | Outpatient (CLI) | payer MEDICAID | END 2023-03-19 09:16 | disposition home or self-care (01) | LOC: LAB.N 09:15 | PROVIDERS: ATTEND Nurse Practitioner | DX: N92.6 Irregular menstruation, unspecified (principal) | CPT/HCPCS: 36415; 84702 ==

== ENCOUNTER 2023-03-21 15:50 | Outpatient (CLI) | payer MEDICAID | END 2023-03-21 15:51 | disposition home or self-care (01) | LOC: LAB 15:50 | PROVIDERS: ATTEND Nurse Practitioner | DX: Z32.01 Encounter for pregnancy test, result positive (principal) | CPT/HCPCS: 36415; 84702 ==

== ENCOUNTER 2023-03-23 07:28 | Outpatient (CLI) | payer MEDICAID | END 2023-03-23 07:29 | disposition home or self-care (01) | LOC: LAB 07:28 | PROVIDERS: ATTEND Nurse Practitioner | DX: Z32.01 Encounter for pregnancy test, result positive (principal) | CPT/HCPCS: 36415; 84702 ==

== ENCOUNTER 2023-03-25 13:39 | Outpatient (CLI) | payer MEDICAID | END 2023-03-25 13:40 | disposition home or self-care (01) | LOC: LAB.N 13:39 | PROVIDERS: ATTEND Nurse Practitioner | DX: Z32.01 Encounter for pregnancy test, result positive (principal) | CPT/HCPCS: 36415; 84702 ==

== ENCOUNTER 2023-04-10 06:12 | Emergency (ER) | payer BC, MEDICAID ==
--- NOTE | 2023-04-10 06:41 | ED Physician Documentation ---
PD HPI FEMALE - Stated complaint Stated Complaint: - Chief complaint Chief Complaint: Abd Pain - History obtained from History obtained from: Patient - Additional information Additional information: 27yo At approximately 7 weeks gestational age per last menstrual period presents by private vehicle from home for vaginal spotting that she noticed just prior to arrival. Patient states that she had checked into work went to the bathroom when she noticed a pink tinge when she wiped. As well as abnormal cramping sensations. She has had nurse visits and hCG draws for this , but no IUP confirmed yet. Blood type AB+. Review of Systems Constitutional: denies: Fever, Chills GI: denies: Abdominal Pain, Nausea, Vomiting, Constipation, Diarrhea : reports: Vaginal bleeding, Now EGA. denies: Dysuria, Frequency, Hesitancy Neurologic: denies: Generalized weakness, Focal weakness, Numbness PD PAST MEDICAL HISTORY - Past Medical History Cardiovascular: None Respiratory: None Neuro: Migraines Endocrine/Autoimmune: None - Past Surgical History Past Surgical History: No - Present Medications Home Medications: Ambulatory Orders Medication Instructions Recorded Confirmed metFORMIN [Glucophage] 500 mg PO BID 11/03/21 04/10/23 NIFEdipine [Nifedipine ER] 30 mg PO DAILY 11/28/22 04/10/23 buPROPion HCL [Bupropion Xl] 150 mg PO DAILY 11/28/22 04/10/23 Pnv No.95/Ferrous Fum/Folic AC 1 tab PO DAILY 04/10/23 04/10/23 [ Caplet] - Allergies Allergies/Adverse Reactions: Allergies Allergy/AdvReac Type Severity Reaction Status Date / Time phenol [From Chloraseptic] Allergy Anaphylaxis Verified 04/10/23 06:31 watermelon Allergy Anaphylaxis Verified 04/10/23 06:31 - Social History Does the pt smoke?: No Smoking Status: Never smoker Does the pt drink ETOH?: No Does the pt have substance abuse?: No - Immunizations Immunizations are current?: Yes PD ED PE NORMAL - Vitals Vital signs reviewed: Yes - General General: Alert and oriented X 3, No acute distress, Well developed/nourished - HEENT HEENT: Atraumatic - Cardiac Cardiac: RRR, Strong equal pulses - Abdomen Abdomen: Soft, Non tender, Non distended - Derm Derm: Normal color, Warm and dry, No rash - Extremities Extremities: No deformity, No tenderness to palpate, Normal ROM s pain, No edema - Neuro Neuro: Alert and oriented X 3, 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 Blood type AB+ from previous. Hemodynamically stable. No previously documented IUP for this . Blood work sent to lab, transvaginal ultrasound ordered for assessment. Care of patient to be signed out to oncoming provider Departure - Departure Clinical Impression: Vaginal bleeding affecting early Condition: Stable
[2023-04-10 06:54] LABS: BASOPHILS # (AUTO) 0.1 10^3/uL (0.0-0.1); BASOPHILS % (AUTO) 0.8 %; EOSINOPHILS # (AUTO) 0.1 10^3/uL (0.0-0.7); EOSINOPHILS % (AUTO) 0.9 %; HCT - HEMATOCRIT 36.8 % (37.0-47.0); HGB - HEMOGLOBIN 11.5 g/dL (12.0-16.0); LYMPHOCYTES # (AUTO) 1.8 10^3/uL (1.5-3.5); LYMPHOCYTES % (AUTO) 24.7 %; MEAN CORPUSCULAR HEMOGLOBIN 25.1 pg (27.0-31.0); MEAN CORPUSCULAR HGB CONC 31.3 g/dL (32.0-36.0); MEAN CORPUSCULAR VOLUME 80.3 fL (81.0-99.0); MEAN PLATELET VOLUME 9.3 fL (7.9-10.8); MONOCYTES # (AUTO) 0.6 10^3/uL (0.0-1.0); NEUTROPHILS # (AUTO) 4.8 10^3/uL (1.5-6.6); NEUTROPHILS % (AUTO) 65.3 %; PLT - PLATELET COUNT 300 10^3/uL (130-450); RED BLOOD COUNT 4.58 10^6/uL (4.20-5.40); RED CELL DISTRIBUTION WIDTH 13.9 % (12.0-15.0); WHITE BLOOD COUNT 7.4 x10^3/uL (4.8-10.8)
[2023-04-10 07:46] LABS: ALBUMIN 4.1 g/dL (3.2-5.5); ALBUMIN/GLOBULIN RATIO 1.3 (1.0-2.2); BILIRUBIN,TOTAL 0.3 mg/dL (0.2-1.0); CALCIUM 9.3 mg/dL (8.5-10.3); CREATININE 0.7 mg/dL (0.6-1.3); POTASSIUM 3.9 mmol/L (3.5-4.5); TOTAL PROTEIN 7.3 g/dL (6.4-8.9)
--- NOTE | 2023-04-10 08:34 | ED Physician Documentation ---
ED Addendum - Addendum Addendum: Patient received in signout from Dr. Yeung pending results of labs and ultrasound. Patient is presenting for evaluation of vaginal bleeding in early first trimester . Has not had a confirmatory ultrasound yet. 04/10/23 08:[address]ologist there is a positive IUP measuring 6 weeks 5 days with a heart rate of 123. No subchorionic hemorrhage seen. Reviewed lab results as well as ultrasound findings with patient. She understands importance of close follow-up with OB as well as no intercourse or use of tampons. Also understands concerning symptoms to return for including heavy vaginal bleeding or development of pain. Departure - Departure Disposition: 01 Home, Self Care Clinical Impression: Vaginal bleeding affecting early Condition: Stable Instructions: Bleeding Early Preg Follow-Up: Camille Mcarthur ARNP [Provider Admit Priv/Credential] - Comments: Your testing today shows that you are measuring approximately 6 weeks and 5 days. The is located inside the uterus. Please continue to have close follow-up with your OB. Return to the emergency department if you develop any significant pain or worsening bleeding where you are saturating a pad an hour for a few hours or with any other symptoms such as dizziness or lig htheadedness. IMPRESSION: Single live intrauterine . No significant discrepancy is found between the estimated gestational age based upon these images and the estimated gestational age based upon the given date of the last menstrual period. No significant perigestational hemorrhage can be seen. Forms: PCP List Discharge Date/Time: 04/10/23 09:56
[2023-04-10 08:38] LABS: BILIRUBIN,URINE NEGATIVE (NEGATIVE); GLUCOSE, URINE (UA) NEGATIVE (NEGATIVE); KETONES,URINE (UA) NEGATIVE (NEGATIVE); LEUKOCYTE ESTERASE, URINE NEGATIVE (NEGATIVE); NITRITE,URINE NEGATIVE (NEGATIVE); OCCULT BLOOD,URINE SMALL (NEGATIVE); PROTEIN,URINE NEGATIVE (NEGATIVE); UROBILINOGEN,URINE 0.2 (NORMAL) E.U./dL (NORMAL)
[2023-04-10 08:56] LABS: BACTERIA,URINE Few /HPF (None Seen); CLARITY,URINE CLEAR (CLEAR); RBC,URINE 0-5 /HPF (0-5); SQUAMOUS EPITHELIAL CELL,UR MANY Squamous (<= Few); WBC,URINE 0-3 /HPF (0-5)
--- NOTE | 2023-04-10 09:16 | Ultrasound Report ---
PROCEDURE: OB 1st Trimester w/TV INDICATIONS: VAG BLEEDING, 7WGA, NO PRIORS OUTSIDE/PRIOR DATING DATA: Last menstrual period (LMP): 02/21/2023. LMP-based estimated date of delivery (MACIE): 11/28/2023. First dating scan (date and location): 04/10/2023. Estimated date of delivery (MACIE) from first dating scan: 11/29/2023. TECHNIQUE: Real-time scanning was performed of the fetus and maternal pelvic organs, with image documentation. Endovaginal scanning was also performed to better visualize the fetus and maternal ovaries. COMPARISON: None. FINDINGS: Intrauterine gestational sac present. Embryo: There is an intrauterine gestational sac seen, with a pole present, which measures 0.7 9 cm, which corresponds to an estimated gestational age of 6 weeks 5 days. cardiac activity is seen, with a measured heart rate of 123 bpm. No significant perigestational/subchorionic hemorrhag e can be seen. A yolk sac can be seen. Other: No perigestational fluid collection. Measurement variability in dating: +/- 4 weeks by LMP, +/- 7 days by mean sac diameter (use before 6 weeks gestation if crown-rump length not able to be measured), +/- 5 days by crown-rump length (6-12 weeks gestation). Maternal organs: A normal-appearing right ovary is seen. The left ovary is not seen. IMPRESSION: Single live intrauterine . No significant discrepancy is found between the estimated gestational age based upon these images and the estimated gestational age based upon the given date of the last menstrual period. No significant perigestational hemorrhage can be seen. Note: Concordant preliminary findings given by the receiving associate store upon the completion of the examination to Dr. Rivers Reviewed by: Mark Varela MD on 04/10/2023 8:14 AM FRANK Approved by: Mark Varela MD on 04/10/2023 8:14 AM [facility] Station ID: [id number]
[2023-04-10 09:55] VITALS: BP 163/90; O2SAT 97
== END 2023-04-10 09:56 | disposition home or self-care (01) ==
LOC: ED 06:12
DX: O20.9 Hemorrhage in early pregnancy, unspecified (principal); Z3A.01 Less than 8 weeks gestation of pregnancy
CPT/HCPCS: 36415; 80053; 81001; 84702; 85025; 87086; 99283; 99284

== ENCOUNTER 2023-04-13 14:55 | Outpatient (CLI) | payer BC, MEDICAID | END 2023-04-13 14:56 | disposition home or self-care (01) | LOC: DI 14:55 | PROVIDERS: ATTEND Nurse Practitioner | DX: Z53.9 Procedure and treatment not carried out, unspecified reason (principal) ==

== ENCOUNTER 2023-05-10 08:00 | Outpatient (CLI) | payer BC, MEDICAID ==
[2023-05-10 22:34] LABS: CHLAMYDIA TRACHOMATIS DNA NEGATIVE (NEGATIVE); NEISSERIA GONORRHOEAE DNA NEGATIVE (NEGATIVE); TRICHOMONAS VAGINALIS DNA NEGATIVE (NEGATIVE)
== END 2023-05-10 23:59 | disposition home or self-care (01) ==
LOC: LAB.WC 08:00
PROVIDERS: ATTEND Nurse Practitioner
DX: O09.293 Supervision of pregnancy with other poor reproductive or obstetric history, third trimester (principal); Z11.3 Encounter for screening for infections with a predominantly sexual mode of transmission; Z87.51 Personal history of pre-term labor; Z87.59 Personal history of other complications of pregnancy, childbirth and the puerperium; Z86.32 Personal history of gestational diabetes; O16.3 Unspecified maternal hypertension, third trimester
CPT/HCPCS: 36415; 80053; 82570; 82728; 82950; 83036; 84156; 84550; 87491; 87591; 87661

== ENCOUNTER 2023-05-10 14:24 | Outpatient (CLI) | payer BC, MEDICAID ==
[2023-05-10 15:49] LABS: CREATININE,URINE 163.6 mg/dL; PROTEIN/CREATININE RATIO,URINE 0.1 (<=0.2)
[2023-05-10 16:07] LABS: ALBUMIN 4.1 g/dL (3.2-5.5); ALBUMIN/GLOBULIN RATIO 1.1 (1.0-2.2); BILIRUBIN,TOTAL 0.2 mg/dL (0.2-1.0); CREATININE 0.6 mg/dL (0.6-1.3); POTASSIUM 3.6 mmol/L (3.5-4.5); TOTAL PROTEIN 7.9 g/dL (6.4-8.9); URIC ACID 3.6 mg/dL (2.3-6.6)
[2023-05-10 16:32] LABS: FERRITIN 41.4 ng/mL (11.0-306.8)
[2023-05-10 21:00] LABS: ESTIMATED AVERAGE GLUCOSE 117 mg/dL (70-100); HEMOGLOBIN A1c% 5.7 % (4.27-6.07)
== END 2023-05-10 14:25 | disposition home or self-care (01) ==
LOC: LAB 14:24
PROVIDERS: ATTEND Nurse Practitioner
DX: O09.293 Supervision of pregnancy with other poor reproductive or obstetric history, third trimester (principal); Z87.51 Personal history of pre-term labor; Z87.59 Personal history of other complications of pregnancy, childbirth and the puerperium; Z86.32 Personal history of gestational diabetes; O16.3 Unspecified maternal hypertension, third trimester
CPT/HCPCS: 36415; 80053; 82570; 82728; 82950; 83036; 84156; 84550

== ENCOUNTER 2023-05-11 09:12 | Outpatient (CLI) | payer BC, MEDICAID | END 2023-05-11 09:13 | disposition home or self-care (01) | LOC: LAB 09:12 | PROVIDERS: ATTEND Nurse Practitioner | DX: O09.293 Supervision of pregnancy with other poor reproductive or obstetric history, third trimester (principal) ==

== ENCOUNTER 2023-06-13 07:25 | Outpatient (CLI) | payer BC, MEDICAID | END 2023-06-13 07:26 | disposition home or self-care (01) | LOC: LAB 07:25 | PROVIDERS: ATTEND Nurse Practitioner | DX: O99.345 Other mental disorders complicating the puerperium (principal) | CPT/HCPCS: 36415; 82105 ==

== ENCOUNTER 2023-06-29 07:54 | Outpatient (CLI) | payer BC, MEDICAID ==
[2023-06-29 08:10] LABS: BASOPHILS % (AUTO) 0.3 %; EOSINOPHILS # (AUTO) 0.1 10^3/uL (0.0-0.7); EOSINOPHILS % (AUTO) 1.4 %; HCT - HEMATOCRIT 35.6 % (37.0-47.0); HGB - HEMOGLOBIN 11.3 g/dL (12.0-16.0); LYMPHOCYTES # (AUTO) 1.3 10^3/uL (1.5-3.5); LYMPHOCYTES % (AUTO) 22.3 %; MEAN CORPUSCULAR HEMOGLOBIN 25.9 pg (27.0-31.0); MEAN CORPUSCULAR HGB CONC 31.7 g/dL (32.0-36.0); MEAN CORPUSCULAR VOLUME 81.5 fL (81.0-99.0); MEAN PLATELET VOLUME 8.9 fL (7.9-10.8); MONOCYTES # (AUTO) 0.3 10^3/uL (0.0-1.0); MONOCYTES % (AUTO) 5.8 %; NEUTROPHILS # (AUTO) 4.1 10^3/uL (1.5-6.6); NEUTROPHILS % (AUTO) 69.9 %; PLT - PLATELET COUNT 240 10^3/uL (130-450); RED BLOOD COUNT 4.37 10^6/uL (4.20-5.40); RED CELL DISTRIBUTION WIDTH 13.9 % (12.0-15.0); WHITE BLOOD COUNT 5.8 x10^3/uL (4.8-10.8)
== END 2023-06-29 07:55 | disposition home or self-care (01) ==
LOC: LAB 07:54
PROVIDERS: ATTEND Nurse Practitioner
DX: O09.891 Supervision of other high risk pregnancies, first trimester (principal)
CPT/HCPCS: 36415; 82306; 82728; 85025

== ENCOUNTER 2023-07-26 09:35 | Outpatient (CLI) | payer BC, MEDICAID ==
[2023-07-26 12:16] LABS: ESTIMATED AVERAGE GLUCOSE 103 mg/dL (70-100); HEMOGLOBIN A1c% 5.2 % (4.27-6.07)
== END 2023-07-26 09:36 | disposition home or self-care (01) ==
LOC: LAB 09:35
PROVIDERS: ATTEND Nurse Practitioner
DX: E11.9 Type 2 diabetes mellitus without complications (principal)
CPT/HCPCS: 36415; 83036

== ENCOUNTER 2023-08-14 13:31 | Outpatient (CLI) | payer BC, MEDICAID ==
--- NOTE | 2023-08-14 22:16 | Ultrasound Report ---
PROCEDURE: OB Follow up INDICATIONS: OBESITY OUTSIDE/PRIOR DATING DATA: Last menstrual period (LMP): 02/21/2023. LMP-based estimated date of delivery (MACIE): 11/28/2023. First dating scan (date and location): 04/10/2023, [place]. Estimated date of delivery (MACIE) from first dating scan: 11/29/2023. The below data below was generated using the ultrasound MACIE of 11/29/2023 TECHNIQUE: Real-time scanning was performed of the fetus, with image documentation and biometric measurements. Endovaginal scanning: Not performed. COMPARISON: OB ultrasound on April 10, 2023 FINDINGS: General: A single living intrauterine gestation is present. Presentation: Transverse Placenta: Placental position is anterior, without previa. Amniotic fluid index: 16.9 cm, within normal limits for gestational age. heart rate: 137 beats per minute. Maternal cervical canal: 4.9 cm long; normal length is 2.5 cm or more. biometrics: Biparietal diameter: 6.19 cm, 25 weeks and 1 day, 57.7% Head circumference: 22.83 cm, 24 weeks and 6 days, 34.5% Abdominal circumference: 19.65 cm, 24 weeks and 2 days, 28.9% Femur length: 4.41 cm, 24 weeks and 4 days, 30% Estimated gestational age from initial scan: 24 weeks and 5 days Composite gestational age from present scan: 24 weeks and 5 days Estimated weight and percentile: 701.3 g, 30.2% Measurement variability in biometric dating: +/- 10 days from 12-20 weeks gestation, +/- 2 weeks from 20-30 weeks gestation, +/- 3 weeks at 30 weeks gestation or more. Other: Not applicable. IMPRESSION: 1.Single living intrauterine density with estimated gestational age of 24 weeks and 5 days. 2.CARA is within normal limits. 3.Estimated weight is within normal limits at 701.3 g (30.2%). Reviewed by: aTnika Maria MD on 08/14/2023 10:14 PM PDT Approved by: Tanika Maria MD on 08/14/2023 10:14 PM PDT Station ID: [id number]
== END 2023-08-14 13:32 | disposition home or self-care (01) ==
LOC: DI 13:31
PROVIDERS: ATTEND Nurse Practitioner
DX: O99.212 Obesity complicating pregnancy, second trimester (principal); O16.2 Unspecified maternal hypertension, second trimester; O09.892 Supervision of other high risk pregnancies, second trimester; O24.912 Unspecified diabetes mellitus in pregnancy, second trimester; Z3A.24 24 weeks gestation of pregnancy

== ENCOUNTER 2023-08-22 09:11 | Outpatient (CLI) | payer BC, MEDICAID ==
[2023-08-22 09:21] LABS: HCT - HEMATOCRIT 34.8 % (37.0-47.0); HGB - HEMOGLOBIN 11.5 g/dL (12.0-16.0); MEAN CORPUSCULAR HEMOGLOBIN 26.7 pg (27.0-31.0); MEAN CORPUSCULAR VOLUME 80.9 fL (81.0-99.0); MEAN PLATELET VOLUME 8.9 fL (7.9-10.8); RED BLOOD COUNT 4.3 10^6/uL (4.20-5.40); WHITE BLOOD COUNT 9.7 x10^3/uL (4.8-10.8)
[2023-08-23 05:13] LABS: RPR Non Reactive (Non Reactive)
== END 2023-08-22 09:12 | disposition home or self-care (01) ==
LOC: LAB 09:11
PROVIDERS: ATTEND Nurse Practitioner
DX: O09.891 Supervision of other high risk pregnancies, first trimester (principal)
CPT/HCPCS: 36415; 85027; 86592

== ENCOUNTER 2023-09-14 16:56 | Outpatient (CLI) | payer BC, MEDICAID ==
--- NOTE | 2023-09-15 21:32 | Ultrasound Report ---
PROCEDURE: OB Follow up INDICATIONS: OBESITY OUTSIDE/PRIOR DATING DATA: Last menstrual period (LMP): 02/21/2023. LMP-based estimated date of delivery (MACIE): 11/28/2023. First dating scan (date and location): 04/10/2023. Estimated date of delivery (MACIE) from first dating scan: 11/29/2023. The below data below was generated using the clinical MACIE of 11/28/2023 TECHNIQUE: Real-time scanning was performed of the fetus, with image documentation and biometric measurements. Endovaginal scanning: Not performed. COMPARISON: OB ultrasound 08/14/2023 FINDINGS: General: A single living intrauterine gestation is present. Presentation: Vertex Placenta: Placental position is anterior, without previa. Amniotic fluid index: 13.3 cm, within normal limits for gestational age. heart rate: 138 beats per minute. Maternal cervical canal: Not assessed biometrics: Biparietal diameter: 7.6 cm 20 weeks 3 days 75th percentile Head circumference: 28.8 cm 31 weeks 5 days a 4th percentile Abdominal circumference: 26.9 cm 31 weeks 0 days 95th percentile Femur length: 5.6 cm 29 weeks 2 days 36 percentile Estimated gestational age from initial scan: 29 weeks 2 days Composite gestational age from present scan: 30 weeks 4 days Estimated weight and percentile: 1587 g 81st percentile Measurement variability in biometric dating: +/- 10 days from 12-20 weeks gestation, +/- 2 weeks from 20-30 weeks gestation, +/- 3 weeks at 30 weeks gestation or more. Other: Not applicable. IMPRESSION: Single live intrauterine with gestational age today of 30 weeks 4 days. CARA is within normal limits. Reviewed by: Tierra Campoverde MD on 09/15/2023 9:31 PM PDT Approved by: Tierra Campoverde MD on 09/15/2023 9:31 PM PDT Station ID: [id number]
== END 2023-09-14 16:57 | disposition home or self-care (01) ==
LOC: DI 16:56
PROVIDERS: ATTEND Nurse Practitioner
DX: O99.213 Obesity complicating pregnancy, third trimester (principal); O16.3 Unspecified maternal hypertension, third trimester; O09.893 Supervision of other high risk pregnancies, third trimester; O24.913 Unspecified diabetes mellitus in pregnancy, third trimester; Z3A.30 30 weeks gestation of pregnancy

== ENCOUNTER 2023-09-20 14:27 | Emergency (ER) | payer BC, MEDICAID ==
[2023-09-20 14:41] VITALS: BP 140/89; O2SAT 97
--- NOTE | 2023-09-20 15:11 | ED Physician Documentation ---
History of Present Illness - Stated complaint Stated Complaint: NEAVREZ,NAUSEA - Chief complaint Chief Complaint: Heent - History obtained from History obtained from: Other - Additonal information Additional information: I had noted the patient was in the waiting room with the history from the nurse that she was 36 weeks with headache and a blood pressure approximately 140/90. Were currently experiencing approximately 4-hour weights so I spoke with our OB provider and we both agree that given that it may be more appropriate for her to go to the [facility] for evaluation and medical s creening examination there. PD PAST MEDICAL HISTORY - Past Medical History Cardiovascular: None Respiratory: None Neuro: Migraines Endocrine/Autoimmune: None - Past Surgical History Past Surgical History: No - Present Medications Home Medications: Ambulatory Orders Medication Instructions Recorded Confirmed metFORMIN [Glucophage] 500 mg PO BID 11/03/21 04/10/23 NIFEdipine [Nifedipine ER] 30 mg PO DAILY 11/28/22 04/10/23 buPROPion HCL [Bupropion Xl] 150 mg PO DAILY 11/28/22 04/10/23 Pnv No.95/Ferrous Fum/Folic AC 1 tab PO DAILY 04/10/23 04/10/23 [ Caplet] - Allergies Allergies/Adverse Reactions: Allergies Allergy/AdvReac Type Severity Reaction Status Date / Time phenol [From Chloraseptic] Allergy Anaphylaxis Verified 09/20/23 14:38 watermelon Allergy Anaphylaxis Verified 09/20/23 14:38 - Social History Does the pt smoke?: No Smoking Status: Never smoker Does the pt drink ETOH?: No Does the pt have substance abuse?: No - Immunizations Immunizations are current?: Yes Results - Vitals Vitals: Vital Signs - 24 hr 09/20/23 14:36 Temperature 36.1 C L Heart Rate 83 Respiratory 17 Rate Blood Pressure 140/89 H O2 Saturation 97 Oxygen O2 Source Room air PD Medical Decision Making - ED course ED course: I did not personally evaluate the patient as she will have her EMTALA MSE in the [facility]. Departure - Departure Disposition: 01 Home, Self Care
== END 2023-09-20 16:45 | disposition home or self-care (01) ==
LOC: ED 14:27
DX: Z53.9 Procedure and treatment not carried out, unspecified reason (principal)

== ENCOUNTER 2023-09-20 15:28 | Outpatient (CLI) | payer BC, MEDICAID ==
[2023-09-20 16:00] LABS: BASOPHILS % (AUTO) 0.2 %; EOSINOPHILS # (AUTO) 0.1 10^3/uL (0.0-0.7); EOSINOPHILS % (AUTO) 0.6 %; HGB - HEMOGLOBIN 10.6 g/dL (12.0-16.0); LYMPHOCYTES # (AUTO) 1.6 10^3/uL (1.5-3.5); LYMPHOCYTES % (AUTO) 18.2 %; MEAN CORPUSCULAR HGB CONC 32.1 g/dL (32.0-36.0); MEAN CORPUSCULAR VOLUME 80.9 fL (81.0-99.0); MEAN PLATELET VOLUME 9.1 fL (7.9-10.8); MONOCYTES # (AUTO) 0.5 10^3/uL (0.0-1.0); MONOCYTES % (AUTO) 6.2 %; NEUTROPHILS # (AUTO) 6.3 10^3/uL (1.5-6.6); NEUTROPHILS % (AUTO) 74.2 %; PLT - PLATELET COUNT 241 10^3/uL (130-450); RED BLOOD COUNT 4.08 10^6/uL (4.20-5.40); WHITE BLOOD COUNT 8.5 x10^3/uL (4.8-10.8)
[2023-09-20 16:11] VITALS: BP 123/65
[2023-09-20] MEDS: ACETAMINOPHEN 500 MG TABLET PO PRN (16:13)
[2023-09-20 16:18] LABS: ALBUMIN 3.4 g/dL (3.2-5.5); ALBUMIN/GLOBULIN RATIO 0.9 (1.0-2.2); BILIRUBIN,TOTAL 0.2 mg/dL (0.2-1.0); CALCIUM 9.7 mg/dL (8.5-10.3); CREATININE 0.5 mg/dL (0.6-1.3); POTASSIUM 3.8 mmol/L (3.5-4.5); TOTAL PROTEIN 7.1 g/dL (6.4-8.9)
[2023-09-20 17:08] LABS: CREATININE,URINE 90.5 mg/dL; PROTEIN/CREATININE RATIO,URINE 0.2 (<=0.2)
--- NOTE | 2023-09-21 | PROVIDER PROGRESS NOTE ---
- HPI Chief Complaint: Headache Current : Current EDU 11/28/23 Gestation 30 Weeks and 1 Days 3 Para 1 Vital Signs Temperature 98.1 F 09/20/23 15:47 Heart Rate 85 09/20/23 15:47 Respiratory Rate 18 09/20/23 15:47 Blood Pressure 123/65 09/20/23 15:47 Temperature 98.1 F 09/20/23 15:47 Heart Rate 85 09/20/23 15:47 Respiratory Rate 18 09/20/23 15:47 Blood Pressure 123/65 09/20/23 15:47 O2 Saturation If not protocol: Oxygen Flow, liters/minute - Procedures OB Procedure Performed: NST Diagnosis/Indication for NST: Other (Headache, concern for preeclampsia) NST Procedure: NST Procedure Start Date 09/20/23 Start Time 16:20 Stop Time 16:42 Vibroacoustic Stimulation Used No Patient States Movement Yes Service Date of procedure: 09/20/23 (Read: 09/20/2023) - Plan Plan: Patient is a 28-year-old -0-1-1 at 30 weeks 1 day gestation presenting today for headache. She had mildly elevated blood pressure in the ED, but normal on arrival and at home. She did take Tylenol earlier this morning as well as sumatriptan, but headache remains 7/10 in her frontal area tracking to the back. Physical Exam Constitutional: alert, no acute distress, well hydrated, well developed, well nourished, appropriate dress. Respiratory: no respiratory distress. Abdomen: nondistended, nontender, no guarding. Psych: affect and mood appropriate, normal interaction, good eye contact. Labs: Plt: 241, creatinine 0.5, AST/ALT: 9/14, protein/creatinine ratio: 0.2. Assessment and plan Headache: -Unlikely to be related to preeclampsia. Labs not concerning. Blood pressure is normalized 123/65. Has not been elevated on L&D. -Headache improved after 1000 mg of Tylenol. Encouraged her to take additional doses every 6 hours until it subsides. If this worsens, should call or return.
== END 2023-09-20 17:25 | disposition home or self-care (01) ==
LOC: WFO 15:28 → FBP 15:33 → WFO 17:25
PROVIDERS: ATTEND Obstetrics & Gynecology
DX: O99.891 Other specified diseases and conditions complicating pregnancy (principal); R51.9 Headache, unspecified; Z3A.30 30 weeks gestation of pregnancy
CPT/HCPCS: 36415; 59025; 80053; 82570; 84156; 85025; 99213; A9270; 99214

== ENCOUNTER 2023-10-08 09:54 | Outpatient (CLI) | payer BC, MEDICAID ==
[2023-10-08 10:47] VITALS: BP 127/64
--- NOTE | 2023-10-08 13:23 | PROCEDURE REPORT ---
- HPI Diagnosis/Indication for NST: Pre- Diabetes Current EDU 11/28/23 Gestation 32 Weeks and 5 Days 3 Para 1 Vital Signs Temperature 97.7 F 10/08/23 10:30 Heart Rate 93 10/08/23 10:30 Respiratory Rate 17 10/08/23 10:30 Blood Pressure 127/64 10/08/23 10:30 Temperature 97.7 F 10/08/23 10:30 Heart Rate 93 10/08/23 10:30 Respiratory Rate 17 10/08/23 10:30 Blood Pressure 127/64 10/08/23 10:30 O2 Saturation If not protocol: Oxygen Flow, liters/minute - NST Procedure NST Procedure Start Date 10/08/23 Start Time 10:00 Stop Time 10:26 Vibroacoustic Stimulation Used No Patient States Movement Yes EFM: 130s, moderate variability, positive 15x15 accelerations, no decelerations Park: no contractions NST reactive/Cat 1 Performed and read 10/08/23 - Results and Plan Plan: 28yo at 32.5w presenting for scheduled NST for DM2 and chronic hypertension - NST reactive - Follow up as scheduled 10/10
== END 2023-10-08 10:30 | disposition home or self-care (01) ==
LOC: WFO 09:54 → FBP 09:57 → WFO 10:30
PROVIDERS: ATTEND Obstetrics & Gynecology
DX: O24.113 Pre-existing type 2 diabetes mellitus, in pregnancy, third trimester (principal); O16.3 Unspecified maternal hypertension, third trimester; Z3A.32 32 weeks gestation of pregnancy
CPT/HCPCS: 59025

== ENCOUNTER 2023-10-14 10:09 | Outpatient (CLI) | payer BC, MEDICAID ==
--- NOTE | 2023-10-14 15:11 | Ultrasound Report ---
PROCEDURE: OB Follow up INDICATIONS: OBESITY OUTSIDE/PRIOR DATING DATA: Last menstrual period (LMP): 02/21/2023. LMP-based estimated date of delivery (MACIE): 11/28/2023. First dating scan (date and location): Today's exam. Estimated date of delivery (MACIE) from first dating scan: 11/28/2023. TECHNIQUE: Real-time scanning was performed of the fetus, with image documentation and biometric measurements. Endovaginal scanning: Not performed. COMPARISON: 09/14/2023 FINDINGS: General: A single living intrauterine gestation is present. Presentation: Vertex Placenta: Placental position is anterior, without previa. Amniotic fluid index: 16.4 cm, 63rd percentile for gestational age. heart rate: 150 beats per minute. Maternal cervical canal: 4.8 cm long; normal length is 2.5 cm or more. biometrics: Biparietal diameter: 8.4 cm, 33 weeks 5 days, 49 percentile Head circumference: 31.1 cm, 34 weeks 6 days, 44 percentile Abdominal circumference: 29.1 cm, 33 weeks 1 day, 39 percentile Femur length: 6.59 cm, 34 weeks 0 days, 49 percentile Estimated gestational age from initial scan: 33 weeks 4 days Composite gestational age from present scan: 34 weeks 0 days Estimated weight and percentile: 2227.3 g, 42nd percentile Measurement variability in biometric dating: +/- 10 days from 12-20 weeks gestation, +/- 2 weeks from 20-30 weeks gestation, +/- 3 weeks at 30 weeks gestation or more. Other: Not applicable. IMPRESSION: Single living intrauterine at 33 weeks 4 days, MACIE of 11/28/2023. Estimated weight of 2227 g, 42nd percentile. CARA of 16.4 cm. Reviewed by: Elbert Dorado MD on 10/14/2023 3:10 PM PDT Approved by: Elbert Dorado MD on 10/14/2023 3:10 PM PDT Station ID: [id number]
== END 2023-10-14 10:10 | disposition home or self-care (01) ==
LOC: DI 10:09
PROVIDERS: ATTEND Nurse Practitioner
DX: O99.213 Obesity complicating pregnancy, third trimester (principal); O16.3 Unspecified maternal hypertension, third trimester; O09.893 Supervision of other high risk pregnancies, third trimester; O24.913 Unspecified diabetes mellitus in pregnancy, third trimester; Z3A.33 33 weeks gestation of pregnancy

== ENCOUNTER 2023-10-21 17:31 | Outpatient (CLI) | payer BC, MEDICAID ==
[2023-10-21 18:10] LABS: BILIRUBIN,URINE NEGATIVE (NEGATIVE); GLUCOSE, URINE (UA) NEGATIVE (NEGATIVE); KETONES,URINE (UA) NEGATIVE (NEGATIVE); LEUKOCYTE ESTERASE, URINE NEGATIVE (NEGATIVE); NITRITE,URINE NEGATIVE (NEGATIVE); OCCULT BLOOD,URINE NEGATIVE (NEGATIVE); PROTEIN,URINE TRACE mg/dL (NEGATIVE); UROBILINOGEN,URINE 1 (NORMAL) E.U./dL (NORMAL)
[2023-10-21 18:13] LABS: CLARITY,URINE HAZY (CLEAR)
[2023-10-21 18:22] VITALS: BP 137/73
--- NOTE | 2023-10-22 10:52 | PROVIDER PROGRESS NOTE ---
- HPI Chief Complaint: Other (back pain/cramping) Current : Current EDU 11/28/23 Gestation 34 Weeks and 4 Days 3 Para 1 Vital Signs Temperature 97.7 F 10/21/23 17:40 Heart Rate 83 10/21/23 17:40 Respiratory Rate 20 10/21/23 17:40 Blood Pressure 137/73 H 10/21/23 17:40 Temperature 97.7 F 10/21/23 17:40 Heart Rate 83 10/21/23 17:40 Respiratory Rate 20 10/21/23 17:40 Blood Pressure 137/73 H 10/21/23 17:40 O2 Saturation If not protocol: Oxygen Flow, liters/minute - Procedures OB Procedure Performed: NST NST Procedure: NST Procedure Start Date 10/21/23 Start Time 17:40 Stop Time 18:02 Vibroacoustic Stimulation Used No Patient States Movement Yes Findings: Reactive, Cat 1 - Plan Plan: Kathy is a 28 yo at 34w4d who presents today triage today with cramping. She reports painful cramping that lasted for about 1.5 hours prior to arrival. On arrival, cramping stopped. Denies LOF, VB. + FM. Denies NEVAREZ, vision changes, upper abdominal pain. Denies dysuria. Per RN, urine dark. Offered SVE, declined. O: VS reviewed. Gen: NAD, resting comfortably on stretcher Chest: non labored respirations Abd: soft, non tender, gravid Ext: trace LE edema, no evidence of DVT NST reactive, Cat 1, no contractions noted. A/P: 28 yo at 34w4d with preexisting Type 2 DM on insulin, chronic hypertension (pregestational HTN), class 3 obesity presenting with pelvic cramping. Resolved on presentation. UA negative. Declines SVE, which I think is reasonable. labor, preeclampsia precautions were reviewed. Increased hydration encouraged. Delfin Quintanilla MD
== END 2023-10-21 18:45 | disposition home or self-care (01) ==
LOC: WFO 17:31 → FBP 17:32 → WFO 18:45
PROVIDERS: ATTEND Obstetrics & Gynecology
DX: O99.891 Other specified diseases and conditions complicating pregnancy (principal); R10.2 Pelvic and perineal pain; O24.113 Pre-existing type 2 diabetes mellitus, in pregnancy, third trimester; O10.913 Unspecified pre-existing hypertension complicating pregnancy, third trimester; O99.213 Obesity complicating pregnancy, third trimester; Z3A.34 34 weeks gestation of pregnancy; Z79.4 Long term (current) use of insulin
CPT/HCPCS: 59025; 81003; 99213

== ENCOUNTER 2023-10-28 10:30 | Outpatient (CLI) | payer BC, MEDICAID ==
[2023-10-28 10:42] LABS: HCT - HEMATOCRIT 34.1 % (37.0-47.0); HGB - HEMOGLOBIN 11.4 g/dL (12.0-16.0); MEAN CORPUSCULAR HEMOGLOBIN 27.1 pg (27.0-31.0); MEAN CORPUSCULAR HGB CONC 33.4 g/dL (32.0-36.0); MEAN PLATELET VOLUME 9.5 fL (7.9-10.8); RED BLOOD COUNT 4.21 10^6/uL (4.20-5.40); RED CELL DISTRIBUTION WIDTH 14.5 % (12.0-15.0); WHITE BLOOD COUNT 9.4 x10^3/uL (4.8-10.8)
[2023-10-28 10:55] LABS: CREATININE,URINE 138.7 mg/dL; PROTEIN/CREATININE RATIO,URINE 0.3 (<=0.2)
[2023-10-28 10:56] LABS: ALBUMIN 3.3 g/dL (3.2-5.5); ALBUMIN/GLOBULIN RATIO 0.9 (1.0-2.2); BILIRUBIN,TOTAL 0.2 mg/dL (0.2-1.0); CALCIUM 9.3 mg/dL (8.5-10.3); CREATININE 0.4 mg/dL (0.6-1.3); POTASSIUM 3.9 mmol/L (3.5-4.5)
== END 2023-10-28 10:31 | disposition home or self-care (01) ==
LOC: LAB 10:30
PROVIDERS: ATTEND Obstetrics & Gynecology
DX: O16.9 Unspecified maternal hypertension, unspecified trimester (principal)
CPT/HCPCS: 36415; 80053; 82570; 84156; 85027

== ENCOUNTER 2023-10-31 14:00 | Outpatient (CLI) | payer BC, MEDICAID ==
[2023-10-31 16:17] LABS: BACTERIA,URINE Moderate /HPF (None Seen); BILIRUBIN,URINE NEGATIVE (NEGATIVE); CLARITY,URINE CLEAR (CLEAR); GLUCOSE, URINE (UA) NEGATIVE (NEGATIVE); KETONES,URINE (UA) NEGATIVE (NEGATIVE); LEUKOCYTE ESTERASE, URINE NEGATIVE (NEGATIVE); NITRITE,URINE NEGATIVE (NEGATIVE); OCCULT BLOOD,URINE NEGATIVE (NEGATIVE); PROTEIN,URINE NEGATIVE (NEGATIVE); RBC,URINE 0-5 /HPF (0-5); SQUAMOUS EPITHELIAL CELL,UR MOD Squamous (<= Few); UROBILINOGEN,URINE 0.2 (NORMAL) E.U./dL (NORMAL); WBC,URINE 0-3 /HPF (0-5)
[2023-10-31 16:59] VITALS: BP 132/72
--- NOTE | 2023-10-31 17:21 | PROVIDER PROGRESS NOTE ---
- HPI Chief Complaint: Labor Current : Current EDU 11/28/23 Gestation 36 Weeks and 0 Days 3 Para 1 presents with contractions and pressure. 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 does not really feel like labor pains. just worrisome to her. Says that she has had about 40 oz of water today. BAby active. planning induction 11/07 for htn. Vital Signs Temperature 98.1 F 10/31/23 14:19 Heart Rate 89 10/31/23 14:19 Respiratory Rate 18 10/31/23 14:19 Blood Pressure 132/72 H 10/31/23 14:19 - Exam no distress abdomen soft, not tender. vulva appears normal cervix /-3 med, mid extremities with some edema. - Procedures OB Procedure Performed: NST Diagnosis/Indication for NST: labor NST Procedure: NST Procedure Start Date 10/31/23 Start Time 14:00 Stop Time 15:50 Patient States Movement Yes Service Date of procedure: 10/31/23 Procedure Details: Reactive for of 32 weeks gestation or more. NST tracing contains at least two heart rate accelerations that are at least 15 beats per minute above the baseline rate and lasting at least 15 seconds from onset to return to baseline within a twenty minute period. Findings: reactive NST. uterine irritability and urine with high specific gravity. - Plan Plan: discharge back to work not in labor. call if problems.
== END 2023-10-31 16:00 | disposition home or self-care (01) ==
LOC: FBP 14:00 → WFO 14:00
PROVIDERS: ATTEND Obstetrics & Gynecology
DX: O47.03 False labor before 37 completed weeks of gestation, third trimester (principal); Z3A.36 36 weeks gestation of pregnancy
CPT/HCPCS: 59025; 81001; 99213

== ENCOUNTER 2023-11-02 11:01 | Outpatient (CLI) | payer BC, MEDICAID | END 2023-11-02 11:02 | disposition home or self-care (01) | LOC: LAB 11:01 | PROVIDERS: ATTEND Obstetrics & Gynecology | DX: Z36.85 Encounter for antenatal screening for Streptococcus B (principal) | CPT/HCPCS: 87797 ==

== ENCOUNTER 2023-11-06 10:23 | Outpatient (CLI) | payer BC, MEDICAID ==
[2023-11-06 10:48] VITALS: BP 124/73
--- NOTE | 2023-11-06 11:15 | PROCEDURE REPORT ---
- HPI Vital Signs Temperature 98.2 F 11/06/23 10:45 Heart Rate 84 11/06/23 10:45 Respiratory Rate 18 11/06/23 10:45 Blood Pressure 124/73 11/06/23 10:45 Temperature 98.2 F 11/06/23 10:45 Heart Rate 84 11/06/23 10:45 Respiratory Rate 18 11/06/23 10:45 Blood Pressure 124/73 11/06/23 10:45 O2 Saturation If not protocol: Oxygen Flow, liters/minute - NST Procedure NST Procedure Start Time 14:00 Stop Time 15:50 - Results and Plan Findings/Impression: Reactive for of 32 weeks gestation or more. NST tracing contains at least two heart rate accelerations that are at least 15 beats per minute above the baseline rate and lasting at least 15 seconds from onset to return to baseline within a twenty minute period. Plan: return tomorrow for labor induction
== END 2023-11-06 11:21 | disposition home or self-care (01) ==
LOC: WFO 10:23 → FBP 10:25 → WFO 11:21
PROVIDERS: ATTEND Obstetrics & Gynecology
DX: O24.113 Pre-existing type 2 diabetes mellitus, in pregnancy, third trimester (principal); O09.893 Supervision of other high risk pregnancies, third trimester; O99.213 Obesity complicating pregnancy, third trimester; O16.9 Unspecified maternal hypertension, unspecified trimester
CPT/HCPCS: 59025

== ENCOUNTER 2023-11-07 08:42 | Inpatient (IN) | payer BC, MEDICAID ==
[2023-11-07 11:03] LABS: BASOPHILS % (AUTO) 0.3 %; EOSINOPHILS # (AUTO) 0.1 10^3/uL (0.0-0.7); EOSINOPHILS % (AUTO) 0.8 %; HCT - HEMATOCRIT 33.5 % (37.0-47.0); HGB - HEMOGLOBIN 10.9 g/dL (12.0-16.0); LYMPHOCYTES # (AUTO) 1.3 10^3/uL (1.5-3.5); LYMPHOCYTES % (AUTO) 14.9 %; MEAN CORPUSCULAR HEMOGLOBIN 26.7 pg (27.0-31.0); MEAN CORPUSCULAR HGB CONC 32.5 g/dL (32.0-36.0); MEAN CORPUSCULAR VOLUME 81.9 fL (81.0-99.0); MEAN PLATELET VOLUME 9.6 fL (7.9-10.8); MONOCYTES # (AUTO) 0.6 10^3/uL (0.0-1.0); MONOCYTES % (AUTO) 7.3 %; NEUTROPHILS # (AUTO) 6.6 10^3/uL (1.5-6.6); PLT - PLATELET COUNT 245 10^3/uL (130-450); RED BLOOD COUNT 4.09 10^6/uL (4.20-5.40); RED CELL DISTRIBUTION WIDTH 14.6 % (12.0-15.0); WHITE BLOOD COUNT 8.7 x10^3/uL (4.8-10.8)
[2023-11-07] MEDS ORDERED: miSOPROStoL 200 MCG TABLET BC PRN (11:09)
[2023-11-07] MEDS ORDERED: OXYTOCIN 10 UNIT/ML VIAL IM PRN (11:09)
[2023-11-07] MEDS ORDERED: lidocaine 1% 20 ML MDV ID PRN (11:09)
[2023-11-07] MEDS ORDERED: NIFEdipine 10 MG CAPSULE PO PRN (11:09)
[2023-11-07] MEDS ORDERED: TERBUTALINE 1 MG/ML VIAL SUBQ PRN (11:09)
[2023-11-07] MEDS ORDERED: CARBOPROST TROMETHAMINE 250 MCG/ML VIAL IM PRN (11:09)
[2023-11-07] MEDS ORDERED: hydrALAZINE INJ 20 MG/ML VIAL IVP PRN ×2 (11:09)
[2023-11-07] MEDS ORDERED: fentaNYL 100 MCG/2 ML VIAL IVP PRN (11:09)
[2023-11-07] MEDS ORDERED: LACTATED RINGERS 1,000 ML IV PRN (11:09)
[2023-11-07] MEDS ORDERED: TRANEXAMIC ACID IN NACL 1,000 MG/100 ML BAG IV PRN (11:09)
[2023-11-07] MEDS ORDERED: miSOPROStoL 200 MCG TABLET PR PRN (11:09)
[2023-11-07] MEDS ORDERED: LABETALOL 20 MG/4 ML SYRINGE IVP PRN ×3 (11:09)
[2023-11-07] MEDS ORDERED: METHYLERGONOVINE 0.2 MG/ML VIAL IM PRN (11:09)
[2023-11-07] MEDS ORDERED: OXYTOCIN/SODIUM CHLORIDE 500 ML IV PRN (11:09)
[2023-11-07 11:15] LABS: ALBUMIN 3.4 g/dL (3.2-5.5); BILIRUBIN,TOTAL 0.3 mg/dL (0.2-1.0); CALCIUM 9.3 mg/dL (8.5-10.3); CREATININE 0.5 mg/dL (0.6-1.3); POTASSIUM 3.9 mmol/L (3.5-4.5); TOTAL PROTEIN 6.9 g/dL (6.4-8.9)
--- NOTE | 2023-11-07 11:20 | HISTORY & PHYSICAL EXAMINATION ---
Admit History - : 2 Parity: 1 Care: positive: [facility] Complications This : positive: Chronic HTN, Other (diabetes on insulin) Smoking Status: Former smoker - Mother's Labs GBS: positive: Group B Step Negative - Other Maternal History Other Maternal History: HPI: Here for labor induction at 37 weeks gestational age. Patient presents today for her prental follow-up visit at 36.4 wks. She reports feeling intermittent contractions. Reports good movement. ................ ...................................................Gail Hagan RN November 04, 2023 9:38 AM. LMP: 02/21/23 MACIE by LMP: 11/28/23 US: 04/10/23 c/w LMP Final MACIE: 11/28/2023 FOB: Jay Paige, home construction IT's A girl!!! Baby Imelda Chavez is a grain farmer at Problem: Chronic httn (nifedipine), preE with her son. On LDASA and nifedipine increased to 30mg BID by MFM. Added labetalol 100mg BID 10/27. then up to 200 mg bid T2DM (previously on Novel Injectibles) on only Metformin when she got . 5.7%, hx GDMA2 (insulin) MFM managine DM: started on lantus 24u at 15 weeks. added mealtime insulin on 06/28/23. Current regimen: 62 u Lantus (split dose), [id number]/11/16, 2u with snack Monthly growth scans ordered 08/01 (kjb) NST/BPP at 32 weeks ordered (KJB) -Growth scan at 29 weeks showed EFW of 1587 g, 81st percentile. - Growth US 11/02 EFW 42%tile depression (buproprion), chronic migraines (nifedipine helping). Hx of anemia: on oral iron daily. son Leroy 2 yo born at . induced at 37 weeks and pushed 10 min. BMI: 45.93 Pre- Weight:301.0 Blood type: AB+ Antibody: Negative CBC: PLT 297 HCT 35.2 HGB 11.2 RUB: Immune VZV: Immune HBsAg: Negative HepC: NR RPR/AB-EIA: NR HIV: NR PAP:08/16/22 - NILM GC/CT: 05/09 Negative HSV:denies in self and partner Genetic testing: [id number] 05/11/23- Negative AFP- Negative Covid: Flu: FAS: @ [facility] in [place] @21+4 - incomplete f/u ordered at . done and ok. no further US at [facility] planned. ordered for rest of Placenta:Anterior w/o previa Cord: CARA: Normal EFW:429g 40% F/U 08/13- WNL EFW 30.2 3VC CARA Normal F/U US at - 08/13 @24+5 WNL EFW 701.3g 30.2% 3VC Anterior placenta, no previa CARA normal 50gm OGCT: 1st trimester: 116 TDAP: 09/09/23 Breast Pump: 09/09/23 3rd trimester H/H 11.5/34.8 PLT 266 RPR- Negative GBS: Delivery plan: IOL at 37wk recommended at 10/12. Patient scheduled for 11/07 Contraception: Allergies: Allergies Reviewed: Done * CHLORASEPTIC THROAT SPRAY (Critical) * WATERMELON (Critical) Social History Reviewed: Done Medications: Meds Reviewed: Done labetalol 100 mg tablet (labetalol) Take 1 tablet by mouth twice a day * stool softner * Tums (calcium carbonate) * Reglan (metoclopramide hcl) * ELECTRIC BREAST PUMP Use 1 device as directed as directed USE TO EXPRESS MILK ACCORDING TO BABY'S NEEDS Z39.1 MACIE 11/28/23 metformin (Glucophage XR) 500 mg tablet extended release 24 hr (metformin (glucophage xr)) Take 2 tablet by mouth twice a day Lantus Solostar U-100 Insulin 100 unit/mL (3 mL) insulin pen (insulin glargine) Inject 42 unit subcutaneously once a day Humalog Diaz KwikPen U-100 100 unit/mL insulin pen, half-unit (insulin lispro) Inject 4 unit subcutaneously as directed Inject 4 units with breakfast and dinner and 2 units with lunch. nifedipine 30 mg tablet extended release 24hr (nifedipine) Take 1 tablet by mouth once daily * Tylenol (acetaminophen) aspirin 81 mg tablet,chewable (aspirin) Take 1 tablet by mouth once a day Start taking low dose aspirin daily at 12 weeks. * Iron (ferrous sulfate) * Vitamin bupropion HCl 150 mg tablet extended release 24 hr (bupropion hcl) TAKE 1 TABLET BY MOUTH ONCE DAILY IN THE MORNING Problems: Encounter for screening for Streptococcus B (OVM53-A38.85) pre gestational Diabetes mellitus in mother complicating , third trimester (ICD-648.03) (KAF80-P76.913) Chronic hypertension complicating AND/OR reason for care during (ICD- 642.00) (TDP89-S07.9) Obesity complicating , first trimester (ICD-649.13) (WKI07-E45.211) Supervision of other high risk , first trimester (ICD-V23.89) (ICD10- O09.891) Maternal mental disorders complicating , childbirth, or the puerperium, condition or complication (ICD-648.44) (VFN13-L76.345) Supervision of with history of precipitous labor, third trimester (ICD-V23.49) (WJG63-W94.293) History of labor (ICD-V13.21) (NWC79-F37.51) Hx of preeclampsia (ICD-V13.29) (UOS72-Y37.59) Essential hypertension, benign (ICD-401.1) (XEV90-K42) Diabetes mellitus, type 2 (ICD-250.00) (LFS93-Q47.9) Polycystic ovarian syndrome (ICD-256.4) (SVQ45-Y50.2) Obesity, class III- BMI >40 (ICD-278.01) (CIO53-F41.9) Hyperlipidemia (ICD-272.4) (ORL89-N11.5) Depression (ICD-311) (BIU44-K13.9) Migraines (ICD-346.90) (UON11-Q82.909) GERD (ICD-530.81) (LSY23-H28.9) Eczema (ICD-692.9) (DRX46-Y64.9) Sciatica (ICD-724.3) (MJO21-X23.30) Fatigue (ICD-780.79) (PYH96-W00.83) Past Medical History: Chronic vs. gestational hypertension Gestational diabetes Diabetes mellitus, type 2 (ICD-250.00) (JIA74-C55.9) Obesity, class III- BMI >40 (ICD-278.01) (DDM95-E11.9) Migraines (ICD-346.90) (YFR11-Z93.909) GERD (ICD-530.81) (CIF35-O71.9) Eczema (ICD-692.9) (WNP36-J33.9) Sciatica (ICD-724.3) (OCN65-I45.30) Past Surgical History: [place] teeth (05/2014) Family History Summary: Family History of Heart Disease for Father, CHF - Entered On: 11/05/2023 Family History of Depression for Father - Entered On: 11/05/2023 Family History of Depression for Sister - Entered On: 11/05/2023 Family History of Heart Disease for Uncle, CHF - Entered On: 11/05/2023 Family History of Breast Cancer for Paternal Grandmother, great grandmother - Entered On: 11/05/2023 Family History Reviewed: 11/04/2023 Family History of Diabetes for Father - Entered On: 06/07/2019 Family History of Kidney/Renal Disease for Father - Entered On: 04/08/2023 Family History of Weight Disorder for Uncle - Entered On: 06/07/2019 Family History of Diabetes for Paternal Grandmother - Entered On: 04/08/2023 Family History of Diabetes for Paternal Grandfather - Entered On: 04/08/2023 Family History of Kidney/Renal Disease for Paternal Grandfather - Entered On: 04/08/2023 Legacy Family History Notes: Mother: unknown Younger Sister: depression / anxiety Older sister: PCOS? Father with diabetes. Uncle with weight disorder. Younger sister with depression and anxiety. Social History Summary: smoked from 05/2015 to 04/2023 1/2 ppd. on and off. 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 She has 1 child. Risk Factors-CCC: Smoked Tobacco Use: Former smoker Smokeless Tobacco Use: Never Passive Smoke Exposure: no HIV High Risk Behavior: no Exercise: yes Alcohol Use: no Drug Use: no Marijuana Use: no - HPI Diagnosis/Indication for NST: Pre- Hypertension Current EDU 11/28/23 Gestation 37 Weeks and 0 Days 3 Vital Signs Temperature 97.9 F 11/07/23 10:00 Temperature 97.9 F 11/07/23 10:00 Heart Rate Respiratory Rate Blood Pressure O2 Saturation If not protocol: Oxygen Flow, liters/minute - NST Procedure NST Procedure Start Time 10:31 Stop Time 10:56 - Results and Plan Findings/Impression: Reactive for of 32 weeks gestation or more. NST tracing contains at least two heart rate accelerations that are at least 15 beats per minute above the baseline rate and lasting at least 15 seconds from onset to return to baseline within a twenty minute period. Plan: proceed with induction Meds/Allgy - Home Medications Home Medications: Ambulatory Orders Medication Instructions Recorded Confirmed metFORMIN [Glucophage] 1,000 mg PO BID 11/03/21 11/07/23 NIFEdipine [Nifedipine ER] 30 mg PO BID 11/28/22 11/07/23 buPROPion HCL [Bupropion Xl] 150 mg PO DAILY 11/28/22 11/07/23 Pnv No.95/Ferrous Fum/Folic AC 1 tab PO DAILY 04/10/23 11/07/23 [ Caplet] Insulin Glargine [Lantus Solostar] 62 units SUBQ QPM 11/07/23 11/07/23 Insulin Lispro [Humalog Kwikpen 9 unit SUBQ QDLUNCH 11/07/23 11/07/23 U-100] Insulin Lispro [Humalog Kwikpen 12 unit SUBQ QDBREAKFAST 11/07/23 11/07/23 U-100] Insulin Lispro [Humalog Kwikpen 12 unit SUBQ QDDINNER 11/07/23 11/07/23 U-100] Labetalol [Trandate] 200 mg PO BID 11/07/23 11/07/23 - Allergies Allergies/Adverse Reactions: Allergies Allergy/AdvReac Type Severity Reaction Status Date / Time phenol [From Chloraseptic] Allergy Anaphylaxis Verified 09/20/23 14:38 watermelon Allergy Anaphylaxis Verified 09/20/23 14:38 Review of Systems - Cardiovascular Cariovascular: denies: Irregular heart rate - Respiratory Respiratory: denies: Cough - Gastrointestinal Gastrointestinal: denies: Abdominal pain - Other Findings Other Findings: good movement. no recent headaches. Physical - Abdominal Exam Vital Signs: Temp Pulse Resp BP Pulse Ox O2 Flow Rate 97.9 F 11/07/23 10:00 Contraction Frequency (min/apart): min Contraction Intensity: positive: Irritability Uterine Resting Tone: positive: Soft - Monitoring Strip Review: positive: Category I - Presentation Presentation: positive: Vertex - Vaginal Exam Membranes: positive: Membranes intact Dilation (in cm): 4 Effacement (%): 50 Station: positive: -3 Cervical Position: positive: Posterior - Speculum Exam Speculum Exam Performed: positive: No Plan for Labor - Plan For Labor I expect patient to be DC'd or transferred within 96 hours.: Yes Plan for Labor: admit for labor induction. start with misoprostol 50 mcg buccal. AROM and pitocin as needed. consents signed. manage bp and diabetes as needed. did take her lantus last night.
[2023-11-07] MEDS: INSULIN LISPRO 300 UNIT/3 ML PEN SUBQ SCH (12:32)
[2023-11-07] MEDS: SODIUM CHLORIDE FLUSH 0.9% 10 ML SYRINGE IVP SCH (12:35)
[2023-11-07] MEDS: miSOPROStoL 100 MCG TABLET BC SCH (12:35)
--- NOTE | 2023-11-07 12:46 | PHARMACY PROGRESS NOTE ---
- Best Possible Medication History Admit Date and Time: 11/07/23 1109 Processed by: Nursing As the person ultimately responsible for medication therapy, providers are able to order a medication from an existing home medication list in [facility] via the "Reconcile Routine" prior to Confirmation of that medication by research support specialist. Such practice is discouraged except when the physician, in their clinical judgment, deems that a medical need exists for a medication without regard to previous use.
[2023-11-07] MEDS: ACETAMINOPHEN 500 MG TABLET PO PRN (15:54)
[2023-11-07 16:06] LABS: CREATININE,URINE 147.1 mg/dL; PROTEIN/CREATININE RATIO,URINE 0.2 (<=0.2)
[2023-11-07] MEDS ORDERED: ONDANSETRON 4 MG/2 ML VIAL IVP PRN (16:49)
[2023-11-07] MEDS: OXYTOCIN/SODIUM CHLORIDE 500 ML IV SCH (17:27)
[2023-11-07] MEDS: SODIUM CHLORIDE FLUSH 0.9% 10 ML SYRINGE IVP PRN (17:32)
--- NOTE | 2023-11-07 18:12 | PROVIDER PROGRESS NOTE ---
Labor Progress Note - Uterine Monitoring Uterine Monitoring Mode: positive: External toco Contraction Frequency (min/apart): irreg Contraction Intensity: positive: Mild Uterine Resting Tone: positive: Soft - Monitoring Monitor Mode: positive: External ultrasound Heart Rate Variability: positive: Moderate (6-25 bmp) Accelerations: positive: Present, 15x15 Decelerations: positive: None Strip Review: positive: Category I - Vaginal Exam Dilation (in cm): 4 Effacement (%): 70 Station: -3 - Labor Progress Note Labor Progress Note/Additional Text: still pretty comfortable. AROM and clear fluid. hopes not to have epidural bp 153/85 pulse 105 so will given 200 mg labetolol now. sugars good.
[2023-11-07] MEDS: LABETALOL 100 MG TABLET PO SCH (18:52)
[2023-11-07] MEDS ORDERED: metFORMIN 500 MG TABLET PO SCH (21:00)
[2023-11-07] MEDS ORDERED: WITCH HAZEL/GLYCERIN 1 PAD TOP PRN (21:49)
[2023-11-07] MEDS ORDERED: HYDROCORTISONE 1% CREAM 28 GM TUBE PR PRN (21:49)
--- NOTE | 2023-11-07 21:49 | DELIVERY NOTE ---
Delivery Note - Labor Labor: positive: Other (induced with miso and then pitocin and AROM) - Infant Delivery Method Delivery Method: positive: Spontaneous vaginal delivery - Cervical Ripening Method Cervical Ripening Method: positive: Misoprostil - Presentation Presentation: positive: Vertex - Nuchal Cord Nuchal Cord: positive: None - Anesthetic Anesthetic Type: - Amniotic Fluid Description Amniotic Fluid Description: positive: Clear - Episiotomy Type Episiotomy Type: positive: None - Laceration Laceration: positive: None - Delivery Outcome Delivery Outcome: positive: Livebirth - : positive: Placed in direct skin contact with mother, Stimulated, Warmed, Bixby used [place] sex: positive: Female - Cord Cord: positive: 3 vessels - Placenta Placenta: positive: Intact, Spontaneous - Estimated Blood Loss Estimated Blood Loss (in cc): 300 - Post Delivery Events Post Delivery Events: positive: No post delivery events - Delivery Comments (Free Text/Narrative) Delivery Comments (Free Text/Narrative): Patient admitted for induction due to htn on nifedipine and labetolol and diabetes on metformin and insulin up to about 75 units a day in divided doses. took normal insulin last night and for breakfast. decreased to 5 u at lunch from 9 and then non at dinner as she as 66 but then was up to 188 and then down to 145. mostly in good range during labor. bp during labor were good. received labetolol 200 mg dose in evening early. received miso 50 mcg buccal at noon. at 4 started oxytocin. AROM about 5 clear. progressed well. I was called to come in about 8 as she was 7 and pushy. When I got here, pitocin was at 2 and we turned it off. She was using n itrous for pain relief. She kept feeling pushy but still had cervix left. She got into hands and knees and then got to when I left the room for a bit. I came back and was unable to accomplish delivery in that position. Had her lay down and delivered baby easily OA. baby put in her belly. warmed and stimulated. Apgars 9/9. cord clamped and cut by grandma after a few minutes. it was a very robust cord. Placenta spontaneously came out about 10 minutes later. I was not able to see if she had a laceration without putting her legs up so this was done. There were no lacerations. Pitocin was started at 200 cc/hr after placenta came out. She was barely bleeding. after delivery first bp was 130/80 maty. mom and baby resting well. PP Plan to put her back to predelivery meds of metformin and nifedipine only and see how she does. Has a CGM on to monitor sugars.
[2023-11-07] MEDS: IBUPROFEN 800 MG TABLET PO PRN (22:36)
[2023-11-07] MEDS: NIFEdipine ER 30 MG TABLET PO SCH (22:36)
[2023-11-07] MEDS: metFORMIN 500 MG TABLET PO SCH (23:55)
[2023-11-08] MEDS ORDERED: NIFEdipine ER 30 MG TABLET PO SCH (09:00)
[2023-11-08] MEDS: buPROPion XL 150 MG TABLET PO SCH (09:09)
[2023-11-08 09:22] LABS: HCT - HEMATOCRIT 31.2 % (37.0-47.0); HGB - HEMOGLOBIN 10.2 g/dL (12.0-16.0); MEAN CORPUSCULAR HEMOGLOBIN 26.9 pg (27.0-31.0); MEAN CORPUSCULAR HGB CONC 32.7 g/dL (32.0-36.0); MEAN CORPUSCULAR VOLUME 82.3 fL (81.0-99.0); MEAN PLATELET VOLUME 9.5 fL (7.9-10.8); RED BLOOD COUNT 3.79 10^6/uL (4.20-5.40); RED CELL DISTRIBUTION WIDTH 14.9 % (12.0-15.0); WHITE BLOOD COUNT 11.2 x10^3/uL (4.8-10.8)
[2023-11-08 09:35] LABS: ALBUMIN 3.1 g/dL (3.2-5.5); BILIRUBIN,TOTAL 0.2 mg/dL (0.2-1.0); CALCIUM 9.3 mg/dL (8.5-10.3); CREATININE 0.6 mg/dL (0.6-1.3); MAGNESIUM 1.2 mg/dL (1.7-2.3); POTASSIUM 3.8 mmol/L (3.5-4.5); TOTAL PROTEIN 6.3 g/dL (6.4-8.9)
[2023-11-08 10:04] LABS: ESTIMATED AVERAGE GLUCOSE 114 mg/dL (70-100); HEMOGLOBIN A1c% 5.6 % (4.27-6.07)
--- NOTE | 2023-11-08 12:51 | PROVIDER PROGRESS NOTE ---
Subjective - Prog Note Date Prog Note Date: 11/08/23 Prog Note Time: 12:49 - Subjective Subjective: S: She reports that she is feeling well. Pain is well controlled with current medications. She is ambulating without difficulty. She is tolerating a normal diet. She is voiding without difficulty Lochia reported as minimal. Denies NEVAREZ, vision changes, upper abdominal pain. Reports swelling is unchanged. She would like to go home tonight if possible. O: Vials signs/labs reviewed GENERAL: NAD Resp: non-labored respirations ABDOMEN: Soft, non tender. Unable to appreciate fundus. EXT: trace LE edema. No evidence of DVT. A/P: - PPD#1 s/p , doing well - cHTN on procardia 30mg BID - Preexisting, Type 2 diabetes, on insulin and metformin in - Class 3 obesity - Gestational anemia - H/o depression on buproprion - Rh + - Rubella immune - Varicella immune - Continue routine care - Possible discharge this evening if BPs remain well controlled with close outpatient follow up. Discussed RN visit on Tuesday for BP check. We reviewed home BP monitoring, preeclampsia precautions, medications, bleeding/infection precautions in case of discharge this evening. She will continue procardia 30mg BID and metformin 1000mg BID (will stop insulin). Delfin Quintanilla MD Objective - Vital Signs/Intake & Output Vital Signs: Vital Signs x48h Temp Pulse Resp BP Pulse Ox 11/08/23 09:10 98.6 F 91 16 135/82 H 98 Intake & Output: Intake & Output 11/05/23 11/06/23 11/07/23 11/08/23 23:59 23:59 23:59 23:59 Intake Total 237.216 Output Total 200 Balance 37.216 - Lab Results Fish Bones: 11/08/23 09:13 11/08/23 09:13 Other Labs: Lab Results x24hrs 11/08/23 11/08/23 11/08/23 Range/Units 09:13 09:13 09:13 WBC 11.2 H (4.8-10.8) x10^3/uL RBC 3.79 L (4.20-5.40) 10^6/uL Hgb 10.2 L (12.0-16.0) g/dL Hct 31.2 L (37.0-47.0) % MCV 82.3 (81.0-99.0) fL MCH 26.9 L (27.0-31.0) pg MCHC 32.7 (32.0-36.0) g/dL RDW 14.9 (12.0-15.0) % Plt Count 225 (130-450) 10^3/uL MPV 9.5 (7.9-10.8) fL Sodium 135 (135-145) mmol/L Potassium 3.8 (3.5-4.5) mmol/L Chloride 103 (101-111) mmol/L Carbon Dioxide 22 (21-32) mmol/L Anion Gap 10.0 (6-13) BUN 10 (6-20) mg/dL Creatinine 0.6 (0.6-1.3) mg/dL Estimated GFR (MDRD) 121 (>89) Glucose 153 H (74-104) mg/dL Estimat Average Glucose 114 H (70-100) mg/dL Hemoglobin A1c % 5.6 (4.27-6.07) % Calcium 9.3 (8.5-10.3) mg/dL Magnesium 1.2 L (1.7-2.3) mg/dL Total Bilirubin 0.2 (0.2-1.0) mg/dL AST 14 (10-42) IU/L ALT 14 (10-60) IU/L Alkaline Phosphatase 106 (42-121) IU/L Total Protein 6.3 L (6.4-8.9) g/dL Albumin 3.1 L (3.2-5.5) g/dL Globulin 3.2 (2.1-4.2) g/dL Albumin/Globulin Ratio 1.0 (1.0-2.2) Urine Creatinine mg/dL Ur Total Protein Timed mg/dL Protein/Creatinin Ratio (<=0.2) 11/07/23 Range/Units 15:30 WBC (4.8-10.8) x10^3/uL RBC (4.20-5.40) 10^6/uL Hgb (12.0-16.0) g/dL Hct (37.0-47.0) % MCV (81.0-99.0) fL MCH (27.0-31.0) pg MCHC (32.0-36.0) g/dL RDW (12.0-15.0) % Plt Count (130-450) 10^3/uL MPV (7.9-10.8) fL Sodium (135-145) mmol/L Potassium (3.5-4.5) mmol/L Chloride (101-111) mmol/L Carbon Dioxide (21-32) mmol/L Anion Gap (6-13) BUN (6-20) mg/dL Creatinine (0.6-1.3) mg/dL Estimated GFR (MDRD) (>89) Glucose (74-104) mg/dL Estimat Average Glucose (70-100) mg/dL Hemoglobin A1c % (4.27-6.07) % Calcium (8.5-10.3) mg/dL Magnesium (1.7-2.3) mg/dL Total Bilirubin (0.2-1.0) mg/dL AST (10-42) IU/L ALT (10-60) IU/L Alkaline Phosphatase (42-121) IU/L Total Protein (6.4-8.9) g/dL Albumin (3.2-5.5) g/dL Globulin (2.1-4.2) g/dL Albumin/Globulin Ratio (1.0-2.2) Urine Creatinine 147.1 mg/dL Ur Total Protein Timed 33 mg/dL Protein/Creatinin Ratio 0.2 (<=0.2)
--- NOTE | 2023-11-08 19:32 | DISCHARGE SUMMARY ---
Discharge Summary Admit Date: 11/07/23 Discharge Date: 11/08/23 Discharging Provider: Delfin Quintanilla MD Condition at Discharge: Good - HOSPITAL COURSE Hospital Course: Admission Diagnosis: - SIUP at 37w0d - pregestational hypertension (cHTN) - Preexisting, Type 2 DM - Class 3 obesity - Gestational anemia - H/o depression - Rh + - Rubella immune - Varicella immune Discharge Diagnosis: Same s/p Procedures: Hospital Course: Kathy is a 28 yo who presented for IOL. She had an uncomplicated labor course with , EBL 300cc. course uncomplicated. Blood pressures well controlled on nifedipine 30mg BID. OBJECTIVE: VS reviewed. See progress note from earlier in day. PLAN: Plan for discharge home with follow up in clinic on Tuesday for RN visit for BP check. Will continue nifedipine 30mg BID and metformin 1000mg BID. BP monitoring, preeclampsia precautions, bleeding, and infection precautions reviewed with patient in detail during rounds this AM. Delfin Quintanilla MD - ALLERGIES Allergies/Adverse Reactions: Allergies Allergy/AdvReac Type Severity Reaction Status Date / Time phenol [From Chloraseptic] Allergy Anaphylaxis Verified 09/20/23 14:38 watermelon Allergy Anaphylaxis Verified 09/20/23 14:38 - MEDICATIONS Home Medications: Ambulatory Orders Medication Instructions Recorded Confirmed metFORMIN [Glucophage] 1,000 mg PO BID 11/03/21 11/07/23 NIFEdipine [Nifedipine ER] 30 mg PO BID 11/28/22 11/07/23 buPROPion HCL [Bupropion Xl] 150 mg PO DAILY 11/28/22 11/07/23 Pnv No.95/Ferrous Fum/Folic AC 1 tab PO DAILY 04/10/23 11/07/23 [ Caplet] Insulin Glargine [Lantus Solostar] 62 units SUBQ QPM 11/07/23 11/07/23 - LABS Result Diagrams: 11/08/23 09:13 11/08/23 09:13
[2023-11-08 21:03] VITALS: BP 137/82; O2SAT 97
--- NOTE | 2023-11-08 22:46 | Labor Flowsheet ---
Labor Flowsheet Datetime Report Generated by CPN: 11/08/2023 22:46 Datetime: 11/08/2023 20:34 VITAL SIGNS NBP Sys/Viry/Mean (mmHg): 137 : 82 : 95 Pulse: 89 Datetime: 11/08/2023 16:05 SpO2 (%): 97 Datetime: 11/07/2023 21:20 MEDICATIONS Pitocin (milliunits): Increased to @ 200 ml/hr Datetime: 11/07/2023 21:19 Stage of : Datetime: 11/07/2023 21:08 Pain Type: Contraction Pain Relief Measures: Comfort Measures Pain Coping: Talking Through Contractions; Crying Pain Assessment Comments: Pt reports feeling the urge to push VAGINAL EXAM Dilatation (cm): 9.0 Vaginal Exam Comments: still saome cervix Comfort Measures: Breathing/Relaxation; Family Support LaborFlag: Labor Datetime: 11/07/2023 20:41 Bedside Blood Glucose: 136 Communication Comments: MD aware of high BP, pt having ctx during bp check, discussed giving medica tions and inititating hypertensive protocol. Received orders to hold hypertensive med administration. Datetime: 11/07/2023 20:30 Patient Position/Activity: Semi-Fowlers Datetime: 11/07/2023 20:16 Medication Comments: per provider Datetime: 11/07/2023 20:15 UTERINE ACTIVITY Monitor Mode: External Frequency (min): 1.5-2 Quality: Strong Duration (sec): 60-80 Pattern: Normal: <= 5 Contractions in 10 Minutes Resting Tone (Palpate): Relaxed ASSESSMENT A Monitor Mode: Telemetry FHR Baseline Rate : 140 Variability: Moderate 6-25 bpm Accelerations: 15X15 Decelerations: None Category: Category I Datetime: 11/07/2023 20:13 COMMUNICATION Communication: Call/Page Placed to Provider Provider Notified (Name): Dr. Don MD Notification Reason: Status Update Datetime: 11/07/2023 20:08 Effacement (%): 80 Station: 0 Vaginal Bleeding: Normal Show Cervix, Consistency: Soft Cervix, Position: Posterior Datetime: 11/07/2023 20:05 Patient Care Comments: pt reports feeling a lot of pressure on her bottom with UCs and without Datetime: 11/07/2023 20:00 Contraction Comments: interrupted strip pattern Comments: interrupted strip pattern d/t maternal repositioning Datetime: 11/07/2023 19:56 PAIN Pain Scale: 9 Pain Location: Abdomen Datetime: 11/07/2023 19:46 I/O Interventions: Up to BR Datetime: 11/07/2023 19:45 Pitocin Checklist: At Least 1 Acceleration of 15 bpm x 15 Seconds in 30 Minutes or Adequate Variabi lity; No More than 1 Late Deceleration Occurred in Past 30 Minutes; No More than 2 Variable Decelerat ions > 60 Seconds in Duration and decreasing >60 bpm in 30 minutes; No More than 5 Uterine Contractio ns in 10 Minutes for any 20 Minute Interval; Uterus Palpates Soft between Contractions Datetime: 11/07/2023 19:39 Exam by: Dilshad Portillo RN Datetime: 11/07/2023 19:13 Pain Presence: Intermittent Datetime: 11/07/2023 19:00 PATIENT CARE Oxygen Method: Room Air Datetime: 11/07/2023 18:38 Monitor Interventions for FHR: Ultrasound Adjusted Datetime: 11/07/2023 18:32 Temperature (C): 36.5 Datetime: 11/07/2023 18:01 Membrane Status: Ruptured Membranes Rupture Method: Artificial Amniotic Fluid Color: Clear Datetime: 11/07/2023 17:44 Monitor Interventions for UA: [place] Adjusted Datetime: 11/07/2023 17:19 Respirations: 16 Datetime: 11/07/2023 15:56 Analgesics/Sedatives: Tylenol (mg) @ 1000 Datetime: 11/07/2023 15:10 Membrane Comments: Pt thinks water may have broken in tub- felt like she was peeing but couldn't st op. Wants to stay in tub at this time Datetime: 11/07/2023 12:36 Cervical Ripening Agents: Cytotec @ Datetime: 11/07/2023 08:59 Vital Sign Comments: last BM 9/2 AM pt states "normal" MATERNAL ASSESSMENT Level of Consciousness: Alert DTR's/Clonus: DTRs 1+ Headache: Generalized Breath Sounds, Left: Clear and Equal Breath Sounds, Right: Clear and Equal Nausea/Vomiting: Denies RUQ Epigastric Pain: Denies Datetime: 10/31/2023 16:23 Membranes Ruptured Date/Time: 11/07/2023 18:01 Amniotic Fluid Amount: Large
== END 2023-11-08 21:40 | disposition home or self-care (01) | DRG 805 ==
LOC: WFO 08:42 → FBP 08:44 → WFO 11:08 → FBP 11:09
PROVIDERS: ADMIT Obstetrics & Gynecology; ATTEND Obstetrics & Gynecology
PROC: 10E0XZZ Delivery of Products of Conception, External Approach (ICD-10-PCS; principal; 2023-11-07)
PROC: 10907ZC Drainage of Amniotic Fluid, Therapeutic from Products of Conception, Via Natural or Artificial Opening (ICD-10-PCS; 2023-11-07)
PROC: 3E033VJ Introduction of Other Hormone into Peripheral Vein, Percutaneous Approach (ICD-10-PCS; 2023-11-07)
PROC: 3E0DXGC Introduction of Other Therapeutic Substance into Mouth and Pharynx, External Approach (ICD-10-PCS; 2023-11-07)
DX: O10.92 Unspecified pre-existing hypertension complicating childbirth (principal); O24.12 Pre-existing type 2 diabetes mellitus, in childbirth; Z37.0 Single live birth; Z3A.37 37 weeks gestation of pregnancy; E11.9 Type 2 diabetes mellitus without complications; O99.214 Obesity complicating childbirth; E66.01 Morbid (severe) obesity due to excess calories; O99.02 Anemia complicating childbirth; D64.89 Other specified anemias; O76 Abnormality in fetal heart rate and rhythm complicating labor and delivery; Z79.4 Long term (current) use of insulin; Z79.84 Long term (current) use of oral hypoglycemic drugs; Z79.899 Other long term (current) drug therapy; Z87.891 Personal history of nicotine dependence
CPT/HCPCS: 36415; 59409; 80053; 82570; 83036; 83735; 84156; 85025; 85027; 86850; 86900; 86901; A9270; J7120